=== PATIENT | female | born 1980 | race Caucasian/White ===

== ENCOUNTER → 2019-06-18 14:19 | Outpatient (BNVA) | payer MEDICAID, SELFPAY | PROVIDERS: Family Provider Family Medicine; PCP Family Medicine; Visit Provider Family Medicine | DX: N39.3 Stress incontinence (female) (male) (principal); R39.9 Unspecified symptoms and signs involving the genitourinary system; M54.42 Lumbago with sciatica, left side; J30.9 Allergic rhinitis, unspecified; G89.29 Other chronic pain | CPT/HCPCS: 80053; 81000 ==

== ENCOUNTER 2019-06-28 12:52 | Outpatient (CLI) | payer MEDICAID, SELFPAY ==
--- NOTE | 2019-06-28 13:00 | MR_ITS ---
WS: [id number] MRI LUMBAR SPINE NONCONTRAST HISTORY: low back pain COMPARISON: None available. TECHNIQUE: Sagittal and axial multisequence imaging is submitted. Mild cervical stenosis at C5-6 due to disc and facet disease. Normal lumbar alignment with no compression fractures or marrow edema. Disc spaces and vertebral body heights are well-preserved. Conus terminates normally at L1-2 disc level. L1-L2: Mild bilateral foraminal stenosis with no disc herniation. L2-L3: Mild bilateral foraminal stenosis with no disc herniation. Mild facet arthritis. L3-L4: Mild diffuse annular disc bulging. Moderate bilateral foraminal stenosis. Mild facet joint art hritis. L4-L5: Mild annular disc bulging with facet and ligamentum flavum arthropathy. Moderate bilateral for aminal stenosis. L5-S1: No significant stenosis. Paraspinal soft tissues. MR/MR lumbar spine wo con* [id number] IMPRESSION: 1. Mild to moderate bilateral foraminal narrowing from L1-2 to L4-5. Most sign ificant at L3-4 and L4-5. May be due to congenitally short pedicles. 2. No significant central stenosis at this time. 3. No fractures.
== END 2019-06-28 12:53 | disposition home or self-care (01) ==
LOC: RADSHAW 12:55
PROVIDERS: Family Provider Family Medicine; PCP Family Medicine; Visit Provider Family Medicine
DX: M54.42 Lumbago with sciatica, left side (principal); G89.29 Other chronic pain
CPT/HCPCS: 72148

== ENCOUNTER → 2019-07-03 12:57 | Outpatient (BNVA) | payer MEDICAID, SELFPAY | PROVIDERS: Family Provider Family Medicine; PCP Family Medicine; Referring Provider Family Medicine; Visit Provider Anesthesiology Pain Medicine | DX: G89.29 Other chronic pain (principal); M54.16 Radiculopathy, lumbar region; M47.816 Spondylosis without myelopathy or radiculopathy, lumbar region; M54.42 Lumbago with sciatica, left side; M47.812 Spondylosis without myelopathy or radiculopathy, cervical region; M62.830 Muscle spasm of back; Z79.891 Long term (current) use of opiate analgesic | CPT/HCPCS: 99204 ==

== ENCOUNTER → 2019-08-16 11:02 | Outpatient (BNVA) | payer MEDICAID, SELFPAY | PROVIDERS: Family Provider Family Medicine; PCP Family Medicine; Visit Provider Anesthesiology Pain Medicine | DX: G89.29 Other chronic pain (principal); M54.16 Radiculopathy, lumbar region; M54.42 Lumbago with sciatica, left side; F17.210 Nicotine dependence, cigarettes, uncomplicated | CPT/HCPCS: 64483; 64484; J1040; J2001; J3490 ==

== ENCOUNTER → 2019-08-30 12:38 | Outpatient (BNVA) | payer MEDICAID, SELFPAY | PROVIDERS: Family Provider Family Medicine; PCP Family Medicine; Visit Provider Anesthesiology Pain Medicine | DX: G89.29 Other chronic pain (principal); M54.16 Radiculopathy, lumbar region; M54.42 Lumbago with sciatica, left side; F17.210 Nicotine dependence, cigarettes, uncomplicated | CPT/HCPCS: 64483; 64484; J1040; J2001; J3490 ==

== ENCOUNTER → 2019-09-17 09:01 | Outpatient (BNVA) | payer MEDICAID, SELFPAY | PROVIDERS: Family Provider Family Medicine; PCP Family Medicine; Visit Provider Anesthesiology Pain Medicine | DX: G89.29 Other chronic pain (principal); M54.42 Lumbago with sciatica, left side; M54.16 Radiculopathy, lumbar region; M47.816 Spondylosis without myelopathy or radiculopathy, lumbar region; M47.812 Spondylosis without myelopathy or radiculopathy, cervical region; M25.559 Pain in unspecified hip; G47.00 Insomnia, unspecified; M62.830 Muscle spasm of back; F17.210 Nicotine dependence, cigarettes, uncomplicated | CPT/HCPCS: 99214 ==

== ENCOUNTER → 2019-10-25 10:18 | Outpatient (BNVA) | payer MEDICAID, SELFPAY | PROVIDERS: Family Provider Family Medicine; PCP Family Medicine; Visit Provider Anesthesiology Pain Medicine | DX: M54.42 Lumbago with sciatica, left side (principal); M47.816 Spondylosis without myelopathy or radiculopathy, lumbar region; M54.16 Radiculopathy, lumbar region; M25.559 Pain in unspecified hip; M62.830 Muscle spasm of back; M47.812 Spondylosis without myelopathy or radiculopathy, cervical region; G47.00 Insomnia, unspecified; F17.210 Nicotine dependence, cigarettes, uncomplicated | CPT/HCPCS: 99213; 99214 ==

== ENCOUNTER → 2019-11-01 13:25 | Outpatient (BNVA) | payer MEDICAID, SELFPAY | PROVIDERS: Family Provider Family Medicine; PCP Family Medicine; Visit Provider Nurse Practitioner | DX: M54.9 Dorsalgia, unspecified (principal); N39.0 Urinary tract infection, site not specified; Z68.31 Body mass index [BMI] 31.0-31.9, adult; F17.210 Nicotine dependence, cigarettes, uncomplicated; Z71.89 Other specified counseling | CPT/HCPCS: 81000; 87086 ==

== ENCOUNTER → 2019-11-07 13:26 | Outpatient (BNVA) | payer MEDICAID, SELFPAY | PROVIDERS: Family Provider Family Medicine; PCP Family Medicine; Visit Provider Anesthesiology Pain Medicine | DX: G89.29 Other chronic pain (principal); M47.816 Spondylosis without myelopathy or radiculopathy, lumbar region; M54.42 Lumbago with sciatica, left side; M54.9 Dorsalgia, unspecified | CPT/HCPCS: 64493; 64494; 64495; J3490 ==

== ENCOUNTER → 2020-01-21 09:18 | Outpatient (BNVA) | payer MEDICAID, SELFPAY | PROVIDERS: Family Provider Family Medicine; PCP Family Medicine; Visit Provider Anesthesiology Pain Medicine | DX: G89.29 Other chronic pain (principal); M47.816 Spondylosis without myelopathy or radiculopathy, lumbar region; M54.16 Radiculopathy, lumbar region; M54.42 Lumbago with sciatica, left side; M25.559 Pain in unspecified hip; M62.830 Muscle spasm of back; M47.812 Spondylosis without myelopathy or radiculopathy, cervical region; G47.00 Insomnia, unspecified; F17.210 Nicotine dependence, cigarettes, uncomplicated | CPT/HCPCS: 99213 ==

== ENCOUNTER → 2020-01-28 13:05 | Outpatient (BNVA) | payer MEDICAID, SELFPAY | PROVIDERS: Family Provider Family Medicine; PCP Family Medicine; Visit Provider Anesthesiology Pain Medicine | DX: G89.29 Other chronic pain (principal); M47.816 Spondylosis without myelopathy or radiculopathy, lumbar region; M54.42 Lumbago with sciatica, left side; F17.210 Nicotine dependence, cigarettes, uncomplicated | CPT/HCPCS: 64635; 64636; J1040 ==

== ENCOUNTER → 2020-02-11 13:03 | Outpatient (BNVA) | payer MEDICAID, SELFPAY | PROVIDERS: Family Provider Family Medicine; PCP Family Medicine; Visit Provider Anesthesiology Pain Medicine | DX: G89.29 Other chronic pain (principal); M47.816 Spondylosis without myelopathy or radiculopathy, lumbar region; M54.42 Lumbago with sciatica, left side; F17.210 Nicotine dependence, cigarettes, uncomplicated | CPT/HCPCS: 64635; 64636; J1030 ==

== ENCOUNTER → 2020-02-21 14:10 | Outpatient (BNVA) | payer MEDICAID, SELFPAY | PROVIDERS: Family Provider Family Medicine; PCP Family Medicine; Visit Provider Family Medicine | DX: R63.5 Abnormal weight gain (principal) | CPT/HCPCS: 80053; 84443 ==

== ENCOUNTER → 2020-04-10 09:44 | Outpatient (BNVA) | payer MEDICAID, SELFPAY | PROVIDERS: Family Provider Family Medicine; PCP Family Medicine; Visit Provider Anesthesiology Pain Medicine | DX: G89.29 Other chronic pain (principal); M54.16 Radiculopathy, lumbar region; M47.816 Spondylosis without myelopathy or radiculopathy, lumbar region; M54.42 Lumbago with sciatica, left side; M25.552 Pain in left hip; M47.812 Spondylosis without myelopathy or radiculopathy, cervical region; G47.00 Insomnia, unspecified; M62.830 Muscle spasm of back; F17.210 Nicotine dependence, cigarettes, uncomplicated | CPT/HCPCS: 99213; 99214 ==

== ENCOUNTER → 2020-04-16 13:53 | Outpatient (BNVA) | payer MEDICAID, SELFPAY | PROVIDERS: Family Provider Family Medicine; PCP Family Medicine; Visit Provider Anesthesiology Pain Medicine | DX: G89.29 Other chronic pain (principal); M54.16 Radiculopathy, lumbar region; M54.42 Lumbago with sciatica, left side; F17.210 Nicotine dependence, cigarettes, uncomplicated | CPT/HCPCS: 64483; 64484; J1100; J3490 ==

== ENCOUNTER → 2020-04-17 13:00 | Outpatient (BNVA) | payer MEDICAID, SELFPAY | PROVIDERS: Family Provider Family Medicine; PCP Family Medicine; Visit Provider Family Medicine | DX: J02.9 Acute pharyngitis, unspecified (principal); H92.03 Otalgia, bilateral; G89.29 Other chronic pain | CPT/HCPCS: 87880 ==

== ENCOUNTER → 2020-05-07 10:48 | Outpatient (BNVA) | payer MEDICAID, SELFPAY | PROVIDERS: Family Provider Family Medicine; PCP Family Medicine; Visit Provider Anesthesiology Pain Medicine | DX: G89.29 Other chronic pain (principal); M54.42 Lumbago with sciatica, left side; M54.16 Radiculopathy, lumbar region; M47.816 Spondylosis without myelopathy or radiculopathy, lumbar region; M25.559 Pain in unspecified hip; M47.812 Spondylosis without myelopathy or radiculopathy, cervical region; G47.00 Insomnia, unspecified; M25.50 Pain in unspecified joint; M62.830 Muscle spasm of back; F17.210 Nicotine dependence, cigarettes, uncomplicated | CPT/HCPCS: 99214 ==

== ENCOUNTER 2020-06-13 12:46 | Emergency (ER) | payer MEDICAID, SELFPAY ==
[2020-06-13 13:01] VITALS: BP 124/74; PULSE 82; RESP 18; TEMP 36.6; O2SAT 97; BMI 33.1
--- NOTE | 2020-06-13 13:07 | XR_ITS ---
WS: [id number] Left forearm, AP and lateral views, 06/13/2020 Clinical Data: fall. swelling Comparison: None. Findings: No fracture or dislocations are seen. The soft tissues are normal. The visualized left wrist and elbo w show no obvious abnormalities. XR/XR forearm LT 2V [id number] Impression: Negative for fracture of the left forearm.
--- NOTE | 2020-06-13 13:08 | W.ED.EXTPRO ---
HPI - Extremity Problem General: Chief complaint: Extremity Injury, Upper Stated complaint: FELL - L ARM SWELLING/PAIN Time Seen by Provider: 06/13/20 13:02 History of Present Illness: HPI Narrative: Patient states she fell approximately 45 minutes ago injuring left forearm now she has swelling and pain. Complaint: extremity pain and extremity swelling Onset (ago): minute(s) Pain Consistency: constant Location: left and upper extremity Severity scale (1-10): 3 Quality: aching Radiation: none Relieving factors: immobilization Exacerbating factors: range of motion Associated symptoms: Reports no associated symptoms; Deny fever(s) Review of Systems Const: Denies: fever(s) or chills Musc: Reports: extremity pain (Left forearm) Psych: Denies: anxiety or depression PFSH ED PFSH: Medical History Chronic low back pain with left-sided sciatica Depression MIREILLE (generalized anxiety disorder) Long-term use of high-risk medication Opioid contract exists Surgical History H/O carpal tunnel repair H/O: hysterectomy Family History Other CAD (coronary artery disease) Cancer Diabetes Hypertension Social History Smoking and tobacco status: current every day smoker cigarettes Packs smoked per day: 0.5 Years cigarettes smoked: 15 Second hand smoke exposure: Yes Alcohol intake: never Lives independently: Yes Household members: spouse Marital status: History of recent travel: No Current gender identity: Female Special juan needs: No Physical Exam Const: COMMON NORMALS: no acute distress Extremity: LEFT UPPER EXTREMITY: Yes lower arm (Swelling about 3 inches proximal to the wrist warm does have good range of ) Psych: COMMON NORMALS: mental status grossly normal Course Vital Signs: Vital signs: Vital Signs Temperature 97.9 F 06/13/20 13:01 Pulse Rate 82 06/13/20 13:01 Respiratory Rate 18 06/13/20 13:01 Blood Pressure 124/74 06/13/20 13:01 Pulse Oximetry 97 06/13/20 13:01 Discharge Plan Discharge Prescriptions: No Action montelukast [Singulair] 10 mg tablet 10 mg PO DAILY Qty: 90 RF: 1 fluticasone propionate [Flonase Allergy Relief] 50 mcg/actuation spray,suspension 2 spray INTRANASAL ONCE Qty: 15.8 RF: 5 venlafaxine 150 mg capsule,extended release 24hr 150 mg PO DAILY Qty: 90 RF: 0 sodium chloride 0.9 % Solution 0.9 % epidural ONCE Qty: 1 RF: 0 methylprednisolone acetate [Depo-Medrol] 40 mg/mL suspension 40 mg Infiltration ONCE Qty: 1 RF: 0 lidocaine (PF) 10 mg/mL (1 %) solution 10 mg SUBCUT ONCE Qty: 1 RF: 0 gabapentin 600 mg tablet 600 mg PO QID Qty: 120 RF: 2 naproxen sodium 500 mg tablet, ER multiphase 24 hr 500 mg PO DAILY Qty: 30 RF: 5 Mucinex 1,200 mg tablet extended release 12hr 1,200 mg PO BID Qty: 20 RF: 0 venlafaxine [Effexor XR] 75 mg capsule,extended release 24hr 75 mg PO QAM Qty: 90 RF: 0 naproxen 250 mg tablet 500 mg PO BID PRN (Reason: pain) Qty: 60 RF: 2 Coding Level of Care Code ED Advertising Strategist for Jayla Zheng
[2020-06-13 13:40] VITALS: BP 125/100; PULSE 87; RESP 16; O2SAT 98
== END 2020-06-13 13:43 | disposition home or self-care (01) ==
LOC: ER 13:47
PROVIDERS: Emergency Provider Nurse Practitioner Family; PCP Family Medicine
DX: M79.89 Other specified soft tissue disorders (principal); F17.210 Nicotine dependence, cigarettes, uncomplicated
CPT/HCPCS: 73090; 99282

== ENCOUNTER → 2020-06-16 10:55 | Outpatient (BNVA) | payer MEDICAID, SELFPAY | PROVIDERS: PCP Family Medicine; Visit Provider Internal Medicine Rheumatology | DX: M19.90 Unspecified osteoarthritis, unspecified site (principal); Z79.899 Other long term (current) drug therapy; M54.16 Radiculopathy, lumbar region; Z11.59 Encounter for screening for other viral diseases; Z11.1 Encounter for screening for respiratory tuberculosis; F17.210 Nicotine dependence, cigarettes, uncomplicated | CPT/HCPCS: 99204 ==

== ENCOUNTER 2020-06-16 12:50 | Outpatient (CLI) | payer MEDICAID, SELFPAY ==
--- NOTE | 2020-06-16 12:59 | XR_ITS ---
WS: [id number] XR hand RT min 3V* [id number] REASON FOR EXAM: M19.90 - Unspecified osteoarthritis, unspecified site FINDINGS: The joint spaces of the right hand are relatively well preserved. No fracture or other focal bone lesion is identified. No erosions are seen. No calcifications were other significant soft tissue abnormality noted. XR/XR hand RT min 3V* [id number] IMPRESSION: No significant abnormality.
--- NOTE | 2020-06-16 12:59 | XR_ITS ---
WS: [id number] Right foot, 3 views, 06/16/2020 Clinical Data: M19.90 - Unspecified osteoarthritis, unspecified site Comparison: None. Findings: No fractures or dislocations are seen. No bone destruction or erosion is noted. The joint spaces and soft tissues are normal. No periarticular demineralization or calcifications are seen. There is a small plantar spur and an Ac hilles spur. XR/XR foot RT min 3V* [id number] Impression: Negative right foot.
--- NOTE | 2020-06-16 12:59 | XR_ITS ---
WS: [id number] Left foot, 3 views, 06/16/2020 Clinical Data: M19.90 - Unspecified osteoarthritis, unspecified site Comparison: None. Findings: No fractures or dislocations are seen. No bone destruction or erosion is noted. The joint spaces and soft tissues are normal. There is no periarticular demineralization or calcifications. XR/XR foot LT min 3V* [id number] Impression: Negative left foot.
--- NOTE | 2020-06-16 12:59 | XR_ITS ---
WS: [id number] Left hand, 3 views, 06/16/2020 Clinical Data: M19.90 - Unspecified osteoarthritis, unspecified site Comparison: None. Findings: No fractures or dislocations are seen. The soft tissues are unremarkable. The joint spaces are normal No periarticular demineralization or calcifications are seen XR/XR hand LT min 3V* [id number] Impression: Negative left hand.
[2020-06-16 13:43] LABS: Basophils # 0.1 10^3/uL (0.0-0.1); Basophils % 0.6 %; Eosinophils # 0.1 10^3/uL (0.0-0.8); Eosinophils % 1.8 %; Hematocrit 46.1 % (37.0-47.0); Hemoglobin 14.8 g/dL (11.5-15.3); Lymphocytes # 2.3 10^3/uL (0.8-4.8); Lymphocytes % 28.4 %; Mean Corpuscular HGB Conc 32.1 g/dL (30.0-36.0); Mean Corpuscular Hemoglobin 29.2 pg (28.0-34.0); Mean Corpuscular Volume 91.1 fL (81-99); Mean Platelet Volume 9.3 fL (7.4-10.4); Monocytes # 0.4 10^3/uL (0.2-0.9); Monocytes % 5.6 %; Neutrophils # 5.01 10^3/uL (1.8-7.7); Neutrophils % 63.2 %; Nucleated Red Blood Cells % 0 %; Platelet Count 389 10^3/cmm (130-400); Red Blood Count 5.06 10^6/uL (4.1-5.3); Red Cell Distribution Width 12.3 % (12.1-15.1); White Blood Count 7.9 10^3/uL (4.0-10.0)
[2020-06-16 14:19] LABS: 25 Hydroxy Vitamin D 30 ng/mL (30-100); Alanine Aminotransferase 12 U/L (0-33); Albumin Level 4.1 g/dL (3.5-5.2); Alkaline Phosphatase 66 IU/L (35-105); Aspartate Amino Transferase 19 U/L (0-32); C Reactive Protein 1.9 mg/L (0.0-4.9); Globulin 3.2 g/dL (1.3-4.6); Glomerular Filtration Rate 92.7 mL/min (90-130); Total Bilirubin 0.2 mg/dL (0.15-1.2); Total Protein 7.3 g/dL (6.6-8.7)
[2020-06-16 14:28] LABS: Hepatitis B Core AB, Total Non-Reactive (Nonreactive); Hepatitis B Surface Antigen Non-Reactive (Nonreactive); Hepatitis C Virus Antibody Reactive (Nonreactive)
[2020-06-16 14:34] LABS: Erythrocyte Sedimentation Rate 8 mm/hr (0-15)
[2020-06-17 12:08] LABS: Cyclic Citrullinated Peptide <16 UNITS
[2020-06-18 13:03] LABS: Quantiferon Nil 0.02 IU/mL; Quantiferon TB Gold NEGATIVE (NEGATIVE)
== END 2020-06-16 12:51 | disposition home or self-care (01) ==
LOC: RAD 12:53
PROVIDERS: PCP Family Medicine; Visit Provider Internal Medicine Rheumatology
DX: M19.90 Unspecified osteoarthritis, unspecified site (principal); Z79.899 Other long term (current) drug therapy; Z11.1 Encounter for screening for respiratory tuberculosis; Z11.59 Encounter for screening for other viral diseases
CPT/HCPCS: 36415; 73130; 73630; 80076; 82306; 82565; 85025; 85651; 86140; 86431; 86480; 86704; 86803; 87340

== ENCOUNTER → 2020-07-11 09:19 | Outpatient (BNVA) | payer MEDICAID, SELFPAY | PROVIDERS: PCP Family Medicine; Visit Provider Anesthesiology Pain Medicine | DX: G89.29 Other chronic pain (principal); M54.42 Lumbago with sciatica, left side; M54.16 Radiculopathy, lumbar region; M47.816 Spondylosis without myelopathy or radiculopathy, lumbar region; M47.812 Spondylosis without myelopathy or radiculopathy, cervical region; M25.559 Pain in unspecified hip; M62.830 Muscle spasm of back; M25.50 Pain in unspecified joint; G47.00 Insomnia, unspecified; F17.210 Nicotine dependence, cigarettes, uncomplicated | CPT/HCPCS: 99214 ==

== ENCOUNTER → 2020-07-21 13:46 | Outpatient (BNVA) | payer MEDICAID, SELFPAY | PROVIDERS: PCP Family Medicine; Visit Provider Anesthesiology Pain Medicine | DX: G89.29 Other chronic pain (principal); M54.16 Radiculopathy, lumbar region; M54.42 Lumbago with sciatica, left side; F17.210 Nicotine dependence, cigarettes, uncomplicated | CPT/HCPCS: 64483; 64484; J1100; J3490 ==

== ENCOUNTER → 2020-07-30 10:40 | Outpatient (BNVA) | payer MEDICAID, SELFPAY | PROVIDERS: PCP Family Medicine; Visit Provider Internal Medicine Rheumatology | DX: M19.90 Unspecified osteoarthritis, unspecified site (principal); R76.8 Other specified abnormal immunological findings in serum; Z79.899 Other long term (current) drug therapy; Z79.52 Long term (current) use of systemic steroids; F17.210 Nicotine dependence, cigarettes, uncomplicated | CPT/HCPCS: 99214 ==

== ENCOUNTER 2020-09-03 11:13 | Outpatient (CLI) | payer MEDICAID, SELFPAY | END 2020-09-03 11:14 | disposition home or self-care (01) | PROVIDERS: PCP Family Medicine; Visit Provider Internal Medicine Rheumatology | DX: R76.8 Other specified abnormal immunological findings in serum (principal) | CPT/HCPCS: 87522 ==

== ENCOUNTER → 2020-09-18 09:34 | Outpatient (BNVA) | payer MEDICAID, SELFPAY | PROVIDERS: PCP Family Medicine; Visit Provider Anesthesiology Pain Medicine | DX: G89.29 Other chronic pain (principal); M54.42 Lumbago with sciatica, left side; M54.16 Radiculopathy, lumbar region; M47.816 Spondylosis without myelopathy or radiculopathy, lumbar region; M47.812 Spondylosis without myelopathy or radiculopathy, cervical region; M62.830 Muscle spasm of back; G47.00 Insomnia, unspecified; F17.210 Nicotine dependence, cigarettes, uncomplicated | CPT/HCPCS: 99214 ==

== ENCOUNTER → 2020-11-19 09:23 | Outpatient (BNVA) | payer MEDICAID, SELFPAY | PROVIDERS: PCP Family Medicine; Visit Provider Anesthesiology Pain Medicine | DX: G89.29 Other chronic pain (principal); M54.42 Lumbago with sciatica, left side; M47.816 Spondylosis without myelopathy or radiculopathy, lumbar region; M54.16 Radiculopathy, lumbar region; M79.605 Pain in left leg; M47.812 Spondylosis without myelopathy or radiculopathy, cervical region; M25.559 Pain in unspecified hip; M62.830 Muscle spasm of back; G47.00 Insomnia, unspecified; F17.210 Nicotine dependence, cigarettes, uncomplicated | CPT/HCPCS: 99214 ==

== ENCOUNTER → 2020-11-26 13:02 | Outpatient (BNVA) | payer MEDICAID, SELFPAY | PROVIDERS: PCP Family Medicine; Visit Provider Anesthesiology Pain Medicine | DX: G89.29 Other chronic pain (principal); M54.16 Radiculopathy, lumbar region; M54.42 Lumbago with sciatica, left side; F17.210 Nicotine dependence, cigarettes, uncomplicated | CPT/HCPCS: 64483; 64484; J1100; J3490 ==

== ENCOUNTER → 2020-12-18 10:07 | Outpatient (BNVA) | payer MEDICAID, SELFPAY | PROVIDERS: PCP Family Medicine; Visit Provider Anesthesiology Pain Medicine | DX: G89.29 Other chronic pain (principal); M51.17 Intervertebral disc disorders with radiculopathy, lumbosacral region; M48.062 Spinal stenosis, lumbar region with neurogenic claudication; M47.816 Spondylosis without myelopathy or radiculopathy, lumbar region; M47.812 Spondylosis without myelopathy or radiculopathy, cervical region; M25.559 Pain in unspecified hip; M62.830 Muscle spasm of back | CPT/HCPCS: 99214 ==

== ENCOUNTER → 2021-01-08 15:05 | Outpatient (BNVA) | payer MEDICAID, SELFPAY | PROVIDERS: PCP Family Medicine; Visit Provider Family Medicine | DX: R30.0 Dysuria (principal); R53.83 Other fatigue; Z13.6 Encounter for screening for cardiovascular disorders | CPT/HCPCS: 81000; 87086 ==

== ENCOUNTER → 2021-01-09 13:55 | Outpatient (BNVA) | payer MEDICAID, SELFPAY | PROVIDERS: PCP Family Medicine; Visit Provider Family Medicine | DX: R53.83 Other fatigue (principal); Z13.6 Encounter for screening for cardiovascular disorders | CPT/HCPCS: 80053; 80061; 84443; 85025 ==

== ENCOUNTER → 2021-01-15 09:30 | Outpatient (BNVA) | payer MEDICAID, SELFPAY | PROVIDERS: PCP Family Medicine; Referring Provider Anesthesiology Pain Medicine; Visit Provider Orthopaedic Surgery | DX: G89.29 Other chronic pain (principal); M54.42 Lumbago with sciatica, left side | CPT/HCPCS: 72110 ==

== ENCOUNTER → 2021-02-03 09:30 | Outpatient (BNVA) | payer MEDICAID, SELFPAY | PROVIDERS: PCP Family Medicine; Visit Provider Orthopaedic Surgery | DX: Z20.822 Contact with and (suspected) exposure to COVID-19 (principal); M47.816 Spondylosis without myelopathy or radiculopathy, lumbar region | CPT/HCPCS: 87635 ==

== ENCOUNTER 2021-02-09 11:31 | Day surgery (SDC) | payer MEDICAID, SELFPAY ==
[2021-02-06 10:10] VITALS: BMI 36.3
--- NOTE | 2021-02-06 10:35 | ANES.PREANE2 ---
Pre-Anesthetic Assessment Pre-Anesthetic Assessment: Height/Weight: Height 1.5 m Weight 81.647 kg Preop Diagnosis: back pain Proposed Procedure: Operation Date: 02/09/21 12:00 Proposed Procedures p Lumbar Spine Decompression L3/4 L4/5 21137 70385 M54.42 G89.29(Not Applicable) - Blake Phelan DO Familial anesthetic complications: none Social: Social History: Tobacco and No alcohol Airway: MP: 2 Dentition: False Musc/skel: Comments: inflammatory arthritis Anesthetic Plan: ASA status: 2 Anesthesia: General Risk of > 500 ml blood loss (7ml/kg in children): No PFSH Anesthesia PFSH: Medical History Anxiety Chronic low back pain with left-sided sciatica Chronic steroid use Depression MIREILLE (generalized anxiety disorder) Hepatitis C antibody positive in blood High risk medication use Immunization counseling Inflammatory arthritis Joint pain Long-term use of high-risk medication Opioid contract exists Seasonal allergies Surgical History H/O carpal tunnel repair H/O: hysterectomy History of tonsillectomy and adenoidectomy Family History Other CAD (coronary artery disease) Cancer Diabetes Family history of premature coronary artery disease Hyperlipidemia Hypertension Rheumatoid arthritis Stroke Denies family history of Lupus Chronic kidney disease (CKD) Lung disease Social History Smoking and tobacco status: current every day smoker cigarettes Packs smoked per day: 1.5 Years cigarettes smoked: 15 Second hand smoke exposure: Yes Alcohol intake: never Lives independently: Yes Household members: spouse Marital status: History of recent travel: No Current gender identity: Female Special juan needs: No Data Anesthesia Cardiac Studies: No Data to Display
[2021-02-09] VITALS (7 sets, daily range): BP systolic 103–125; BP diastolic 60–92; PULSE 74–104; RESP 16–21; TEMP 36.5–36.8; O2SAT 93–100
--- NOTE | 2021-02-09 | SCC_ITS ---
Procedure Done: 1. L3/4 laminectomy with partial facetectomy 2. L4/5 laminectomy with partial facetectomy 19.5 seconds of fluoroscopic guidance, for a cumulative dose of 5.99 mGy, was provided to Dr. Phelan by the radiology department. C-arm images of the lumbar spine were saved for the patient's permanent record. [facility]
--- NOTE | 2021-02-09 | XR_ITS ---
WS: [id number] C-ARM RADIOGRAPHS LUMBAR SPINE; 4 IMAGES HISTORY: lumbar spine decompression COMPARISON: None available. Intraoperative imaging during spine decompression. Marker is indicating the L4-5 level. XR/XR lumbar spine 1V [id number] IMPRESSION: Intraoperative decompression at the L4-5 level.
[2021-02-09] MEDS: sodium chloride 0.9% 1,000 ML 30 ML IV (12:00)
--- NOTE | 2021-02-09 12:22 | W.PM.OPSUD ---
Surgery/Procedure H&P Update DATE OF PROCEDURE: February 09, 2021 DATE H&P PERFORMED: 01/15/21 H&P UPDATE INFORMATION: I have reviewed H&P completed within last 30 days, I have examined patient prior to procedure and No changes to prior documentation PREOP DIAGNOSIS: lumbar stenosis with neurogenic claudication PLANNED PROCEDURE: Operation Date: 02/09/21 12:45 Proposed Procedures p Lumbar Spine Decompression L3/4 L4/5 Left 64503 32203 M54.42 G89.29(Not Applicable) - Blake Phelan DO
--- NOTE | 2021-02-09 12:23 | P.ANESUD_ITS ---
Pre-Anesthetic Update Pre-Anesthetic Assessment: Date of Surgery/Procedure: 02/09/21 Preop Alicia gnosis: lumbar stenosis with neurogenic claudication Proposed Procedure: Operation Date: 02/09/21 12:45 Proposed Procedures p Lumbar Spine Decompression L3/4 L4/5 Left 55437 70083 M54.42 G89.29(Not Applicable) - Blake Phelan, DO Any changes to Pre-Anesthetic Assessment?: No Last Intake: Intake Last Liquid Date 02/08/21 Last Liquid Time 22:00 Last Solid Date 02/08/21 Last Solid Time 22:00 Vitals: Temperature 98.1 F 02/09/21 11:46 Temperature Source Temporal Artery S can 02/09/21 11:46 Pulse Rate 93 02/09/21 11:46 Pulse Rhythm 02/09/21 11:46 Pulse Strength 3+ Normal 02/09/21 11:46 Respiratory Rate 18 02/09/21 11:46 Blood Pressure 120/92 02/09/21 11:46 Blood Pressure Noemi n 101 02/09/21 11:46 Pulse Oximetry 96 02/09/21 11:46 Oxygen Delivery Me thod 02/09/21 11:46 Exam: Pre-Anes Outpt Exam: alert, oriented x 3, clear to auscultation bilaterally and regular rate & rhythm Cardiac Studies: No Data to Display
[2021-02-09] MEDS: clindamycin 900 MG/50 ML PREMIX 100 MG IV (12:58)
--- NOTE | 2021-02-09 14:07 | PM.OP ---
Operative Report Date of procedure: February 09, 2021 Pre-op Diagnosis: lumbar stenosis with neurogenic claudication Post-op diagnosis: same Procedure Done: 1. L3/4 laminectomy with partial facetectomy 2. L4/5 laminectomy with partial facetectomy Surgeon: Blake Phelan Fixed Assets Accountant: Alex Arevalo Fixed Assets Accountant: The assistant professor surgical technology, KP Trevino was needed for his expertise under the microscope. He was important and necessary throughout the procedure to complete in a safe and timely manner. He assisted with patient positioning prepping and draping tissue retraction suctioning of the operative field protection of the dural sac and tissue closure Anesthesia: General Estimated blood loss (mL): 5 Condition: stable Disposition: PACU Procedure: 1. L3/4 laminectomy with partial facetectomy 2. L4/5 laminectomy with partial facetectomy Patient is brought to the operative suite. After undergoing anesthesia they are placed in the prone position. All areas of impingement are well padded. Patient is then prepped and draped in the normal sterile fashion. A skin incision is made over the L3/4 level. This is confirmed under c-arm guidance. A series of dilators are passed and the tubular retractor is docked on the L3 lamina. A bovie is used to clear the soft tissue off the lamina and the L 3/4 facet joint. A high speed tim is then used to perform the laminectomy and take down the medial aspect of the L 3/4 facet joint. A kerrison rongeure was then used to take down the remaining lamina and smooth the edge of the laminectomy up to the point where the ligamentum flavum attaches. Attention was then brought to the medial aspect of the facet joint. The remaining medial aspect of the superior and inferior aspect of the facet joint were taken down with the kerrison from the pedicle of L3 to L 4. The facet joint had significant hypertrophy. Attention was then brought to the Ligamentum Flavum. The ligament was taken down from the lamina of L3 to L4 and out medially to the remaining facet joint. The ligament was thick. The dura was then exposed. The dura was in good repair. The L3 nerve was then traced with a curette out the L3/4 foramen and found to be adequately decompressed. The L4 nerve was traced with a curette around the L4 pedicle. The lateral recess was opened with a kerrison helping to further decompress the L4 nerve. Wound is then irrigated copiously with saline and surgiflo is used to stop any bleeding. The tubular retractor is removed A skin incision is made over the L4/5 level. This is confirmed under c-arm guidance. A series of dilators are passed and the tubular retractor is docked on the L4 lamina. A bovie is used to clear the soft tissue off the lamina and the L 4/5 facet joint. A high speed tim is then used to perform the laminectomy and take down the medial aspect of the L 4/5 facet joint. A kerrison rongeure was then used to take down the remaining lamina and smooth the edge of the laminectomy up to the point where the ligamentum flavum attaches. Attention was then brought to the medial aspect of the facet joint. The remaining medial aspect of the superior and inferior aspect of the facet joint were taken down with the kerrison from the pedicle of L4 to L 5. The facet joint had significant hypertrophy. Attention was then brought to the Ligamentum Flavum. The ligament was taken down from the lamina of L4 to L5 and out medially to the remaining facet joint. The ligament was thick. The dura was then exposed. The dura was in good repair. The L4 nerve was then traced with a curette out the L4/5 foramen and found to be adequately decompressed. The L5 nerve was traced with a curette around the L5 pedicle. The lateral recess was opened with a kerrison helping to further decompress the L5 nerve. Wound is then irrigated copiously with saline and surgiflo is used to stop any bleeding. The tubular retractor is removed and the wound is closed with vicryl and monocryl suture. Glue is then used to protect the wound. A sterile dressing is then placed. Patient was then placed in the supine position and transferred to the PACU in stable condition. Associated Problem List Diagnoses (1) Lumbar stenosis with neurogenic claudication:
--- NOTE | 2021-02-09 14:37 | SUR.PHASEI ---
PT AWAKE ALERT TALKATIVE, SITTING WITH HOB AT 45 DEGREES PT MOVES BILAT FEET TO COMMAND, VSS PT DENIES PAIN AND NAUSEA, MONITOR SR, NO ECTOPY, PT TAKING OCC ICE CHIPS PT ON RA TRIAL.
--- NOTE | 2021-02-09 14:47 | ANE.PACU2 ---
Inpatient post-anesthesia follow up: Airway intact: Yes Vital signs: Temperature 97.7 F Pulse Rate 86 Respiratory Rate 21 Blood Pressure 117/79 Pulse Oximetry 93 Oxygen Delivery Me thod Room Air Oxygen Flow Rate 8 Fraction of Inspir ed Oxygen Hydration adequate: Yes Nausea and vomiting: No Pain level: 2 Mental status: Baseline
[2021-02-09] MEDS: HYDROcodone-acetaminophen 5-325 mg Tablet 1 TAB PO (15:01)
== END 2021-02-09 15:35 | disposition home or self-care (01) ==
PROVIDERS: PCP Family Medicine; Visit Provider Orthopaedic Surgery
PROC: (CPT 63005; principal; 2021-02-09 12:40)
DX: M54.42 Lumbago with sciatica, left side (principal); M48.062 Spinal stenosis, lumbar region with neurogenic claudication; G89.29 Other chronic pain; F17.210 Nicotine dependence, cigarettes, uncomplicated; Z79.899 Other long term (current) drug therapy; Z88.0 Allergy status to penicillin
CPT/HCPCS: 63047; 63048; 72020; 76000; J2704; J3490; J7030

== ENCOUNTER → 2021-03-05 10:56 | Outpatient (BNVA) | payer MEDICAID, SELFPAY | PROVIDERS: PCP Family Medicine; Visit Provider Anesthesiology Pain Medicine | DX: G89.29 Other chronic pain (principal); M51.17 Intervertebral disc disorders with radiculopathy, lumbosacral region; M47.816 Spondylosis without myelopathy or radiculopathy, lumbar region; M48.062 Spinal stenosis, lumbar region with neurogenic claudication; M47.812 Spondylosis without myelopathy or radiculopathy, cervical region; M62.830 Muscle spasm of back; G47.00 Insomnia, unspecified; M25.50 Pain in unspecified joint; Z98.890 Other specified postprocedural states; Z79.891 Long term (current) use of opiate analgesic | CPT/HCPCS: 99214 ==

== ENCOUNTER → 2021-04-13 08:46 | Outpatient (BNVA) | payer MEDICAID, SELFPAY | PROVIDERS: PCP Family Medicine; Visit Provider Family Medicine | DX: R05.9 Cough, unspecified (principal); R50.9 Fever, unspecified; R68.89 Other general symptoms and signs; F41.1 Generalized anxiety disorder; R49.0 Dysphonia; J10.1 Influenza due to other identified influenza virus with other respiratory manifestations; F17.219 Nicotine dependence, cigarettes, with unspecified nicotine-induced disorders | CPT/HCPCS: 87400; 87635; 87880 ==

== ENCOUNTER → 2021-06-04 10:52 | Outpatient (BNVA) | payer MEDICAID, SELFPAY | PROVIDERS: PCP Family Medicine; Visit Provider Anesthesiology Pain Medicine | DX: G89.29 Other chronic pain (principal); M51.17 Intervertebral disc disorders with radiculopathy, lumbosacral region; M48.062 Spinal stenosis, lumbar region with neurogenic claudication; M47.816 Spondylosis without myelopathy or radiculopathy, lumbar region; M47.812 Spondylosis without myelopathy or radiculopathy, cervical region; M25.559 Pain in unspecified hip; G47.00 Insomnia, unspecified; M25.50 Pain in unspecified joint; M62.830 Muscle spasm of back; F17.210 Nicotine dependence, cigarettes, uncomplicated; Z79.891 Long term (current) use of opiate analgesic | CPT/HCPCS: 99213 ==

== ENCOUNTER → 2021-06-22 12:47 | Outpatient (BNVA) | payer MEDICAID, SELFPAY | PROVIDERS: PCP Family Medicine; Referring Provider Family Medicine; Visit Provider Specialist | DX: M77.11 Lateral epicondylitis, right elbow (principal) | CPT/HCPCS: 73080 ==

== ENCOUNTER → 2021-08-02 14:36 | Outpatient (BNVA) | payer MEDICAID, SELFPAY | PROVIDERS: PCP Family Medicine; Visit Provider Registered Nurse Neonatal Intensive Care | DX: R11.10 Vomiting, unspecified (principal); R11.2 Nausea with vomiting, unspecified | CPT/HCPCS: 87400 ==

== ENCOUNTER → 2021-08-27 09:35 | Outpatient (BNVA) | payer MEDICAID, SELFPAY | PROVIDERS: PCP Family Medicine; Visit Provider Anesthesiology Pain Medicine | DX: G89.29 Other chronic pain (principal); M51.17 Intervertebral disc disorders with radiculopathy, lumbosacral region; M48.062 Spinal stenosis, lumbar region with neurogenic claudication; M47.816 Spondylosis without myelopathy or radiculopathy, lumbar region; M47.812 Spondylosis without myelopathy or radiculopathy, cervical region; M25.559 Pain in unspecified hip; G47.00 Insomnia, unspecified; M62.830 Muscle spasm of back; F17.210 Nicotine dependence, cigarettes, uncomplicated | CPT/HCPCS: 99214 ==

== ENCOUNTER → 2021-10-05 16:47 | Outpatient (BNVA) | payer MEDICAID, SELFPAY | PROVIDERS: PCP Family Medicine; Visit Provider Family Medicine Adult Medicine | DX: Z20.822 Contact with and (suspected) exposure to COVID-19 (principal); B34.9 Viral infection, unspecified | CPT/HCPCS: 87635 ==

== ENCOUNTER → 2021-12-10 14:31 | Outpatient (BNVA) | payer MEDICAID, SELFPAY | PROVIDERS: PCP Family Medicine; Visit Provider Family Medicine | DX: R30.0 Dysuria (principal); Z13.6 Encounter for screening for cardiovascular disorders; R53.83 Other fatigue | CPT/HCPCS: 80053; 80061; 81000; 84443; 85025; 87086 ==

== ENCOUNTER 2022-02-21 17:09 | Emergency (ER) | payer MEDICAID, SELFPAY ==
[2022-02-21 17:42] VITALS: PULSE 85; RESP 16; TEMP 36.4; O2SAT 98
--- NOTE | 2022-02-21 19:19 | XRR_ITS ---
PROCEDURE INFORMATION: Exam: XR Left Foot Exam date and time: 02/21/2022 8:34 PM Age: 41 years old Clinical indication: Pain; Foot; Left; Additional info: Horse stepped on left foot-pain and swelling TECHNIQUE: Imaging protocol: Radiologic exam of the Left foot. Views: 3 or more views. COMPARISON: No relevant prior studies available. FINDINGS: Bones/joints: Lucency in the tuft of the great toe distal phalanx is suspicious for a minimally displaced fracture. The other bones appear intact and in normal alignment. Soft tissues: Normal. XR/XR foot LT min 3V* [id number] IMPRESSION: Possible minimally displaced fracture in the tuft of the great toe distal phalanx. Correlation with patient's symptoms recommended.
--- NOTE | 2022-02-21 19:20 | ED_ITS ---
HPI - Extremity Problem General: Chief complaint: Extremity Injury, Lower Stated complaint: Horse stump on foot, foot is swollen Time Seen by Provider: 02/21/22 19:19 History of Present Illness: Patient is a 41-year-old female comes to the ED with left foot injury. Patient states that this afternoon one of her horses stepped on her left foot. Horse stepped mostly on big toe. She now has pain and swelling in left foot. Pain with she rates her pain a 10 out of 10. Any weightbearing worsens pain. Denies any loss of sensation to left foot. Associated symptoms: Deny chest pain, fever(s) or rash Review of Systems Const: Denies: fever(s), chills or fatigue Eyes: Denies: change in vision or eye discomfort ENMT: Denies: throat pain, odynophagia, nasal discharge or nasal congestion Card: Denies: chest pain, palpitations, edema, swelling of feet/ankles, dyspnea on exertion or orthopnea Resp: Denies: dyspnea, productive cough or non-productive cough GI: Denies: abdominal pain, nausea, vomiting, diarrhea, constipation or hematochezia : Denies: flank pain, dysuria or hematuria Musc: Reports: extremity pain (Left foot pain); Denies: neck pain, back pain or extremity swelling Skin/Breast: Denies: rash or new lesions Neuro: Denies: headache(s), numbness in extremities or weakness in extremities PFSH ED PFSH: Medical History Anxiety Chronic low back pain with left-sided sciatica Chronic steroid use Depression MIREILLE (generalized anxiety disorder) Hepatitis C antibody positive in blood High risk medication use Immunization counseling Inflammatory arthritis Joint pain Long-term use of high-risk medication Opioid contract exists Seasonal allergies Viral syndrome Surgical History H/O carpal tunnel repair H/O laminectomy H/O: hysterectomy History of tonsillectomy and adenoidectomy Family History Other CAD (coronary artery disease) Cancer Diabetes Family history of premature coronary artery disease Hyperlipidemia Hypertension Rheumatoid arthritis Stroke Denies family history of Lupus Chronic kidney disease (CKD) Lung disease Social History Smoking and tobacco status: current every day smoker cigarettes Packs smoked per day: 1.5 Years cigarettes smoked: 15 Second hand smoke exposure: Yes Alcohol intake: never Lives independently: Yes Household members: spouse Marital status: History of recent travel: No Current gender identity: Female Special juan needs: No Physical Exam Const: COMMON NORMALS: patient oriented x3 and alert GENERAL APPEARANCE: cooperative HENMT: COMMON NORMALS: normocephalic HEAD & SCALP: normocephalic MOUTH: Normal oral and palatal mucosa present THROAT: posterior oropharynx normal and uvula midline Neck/C-Spine: COMMON NORMALS: supple GENERAL: Yes normal visual inspection Resp: COMMON NORMALS: normal respiratory effort, No retractions, No use of accessory muscles and clear to auscultation bilaterally AUSCULTATION: clear to auscultation bilaterally Cardio: COMMON NORMALS: regular rate, regular rhythm, S1 normal heart sound present, S2 normal heart sound present, No gallops present (Cardio), No clicks present (Cardio), No murmurs present (Cardio) and Peripheral pulses 2+ throughout RATE: regular rate RHYTHM: regular rhythm HEART SOUNDS: S1 normal heart sound present and S2 normal heart sound present PERIPHERAL PULSES: Peripheral pulses 2+ throughout GI: COMMON NORMALS: Normal to inspection, nondistended, normoactive bowel sounds present, Soft to palpation, non-tender and no masses PALPATION: Yes Soft to palpation : COMMON NORMALS: Yes no CVA tenderness BLADDER/KIDNEY EXAM: Yes no CVA tenderness Back/Pelvis: COMMON NORMALS: no CVA tenderness Extremity: COMMON NORMALS: capillary refill normal NARRATIVE EXTREMITY EXAM: Left foot?some erythema and swelling of the great toe especially near distal end. No nailbed or nail damage noted. Some mild swelling at the base of great toe. Tenderness to the great toe. Neuro: COMMON NORMALS: patient oriented x3 SENSORIUM/ORIENTATION: Yes alert GAIT: Yes Normal gait present Skin: GENERAL SKIN EXAM: dry skin Course Vital Signs: Vital signs: Vital Signs Temperature 97.6 F 02/21/22 17:42 Pulse Rate 82 02/21/22 20:46 Respiratory Rate 16 02/21/22 20:46 Pulse Oximetry 99 02/21/22 20:46 MDM - Extremity (Nontraumatic) Medical Decision Making Patient is a 41-year-old female comes to the ED with left foot injury. Patient states that this afternoon one of her horses stepped on her left foot. Horse stepped mostly on big toe. Vitals are stable. Left foot?some erythema and swelling of the great toe especially near distal end. No nailbed or nail damage noted. Some mild swelling at the base of great toe. Tenderness to the great t oe. Left foot x-ray showed minimally displaced fracture of the tuft of the great toe distal phalanx. Patient was put in a stiff soled shoe and told to use her at home crutches to help with ambulation. She was sent home with a prescription for ibuprofen 800 mg and hydrocodone for acute pain. Follow-up with PCP within the next week to 10 days for reevaluation. Patient understood and agreed with plan. Lab Data Radiology Impressions Foot X-Ray 02/21/22 19:19 IMPRESSION: Possible minimally displaced fracture in the tuft of the great toe distal phalanx. Correlation with patient's symptoms recommended. Discharge Plan Discharge Patient Disposition: Home Clinical Impression: Fracture of distal phalanx of great toe Qualifiers: Encounter type: initial encounter Fracture type: closed Fracture alignment: nondisplaced Laterality: left Qualified Code(s): S92.425A - Nondisplaced fracture of distal phalanx of left great toe, initial encounter for closed fracture Condition: Stable Prescriptions: New ibuprofen 800 mg tablet 800 mg PO Q8H PRN (Reason: pain) Qty: 30 0RF No Action bupropion HCl 300 mg tablet extended release 24 hr 300 mg PO QAM Qty: 90 1RF oxybutynin chloride 5 mg tablet extended release 24 hr 5 mg PO DAILY Qty: 90 1RF Rx Instructions: Take with 10 mg dose pregabalin 200 mg capsule 200 mg PO TID Qty: 90 3RF oxybutynin chloride 10 mg tablet extended release 24 hr 10 mg PO DAILY Qty: 90 1RF Discharge Orders: Discharge ED (Routine); Ordered 02/21/22 Ordered By: Mike Nguyen Referrals: Lisa Palomino DO [Primary Care Provider] - Discharge Diet: Regular Discharge Activity: Increase activity as tolerated Patient Instructions: Fractures - Phalanx (Toe), Opioid Safety Activity Restrictions/Additional Instructions: Follow-up with medical provider as directed in the next 7 to 10 days for reevaluation. Wear stiff soled shoe when ambulating. Use crutches and limit weightbearing for the first couple days to allow for healing. Take medications as prescribed. Return to the ER or your medical provider if condition worsens. Please read and understand discharge instructions. Thank you for choosing [facility] for your healthcare needs today. Please realize this is an emergency room and that we are providing you with a medical screening exam and this may not be complete and all inclusive of all the testing and or work up that you may need to determine your ailment or severity of your illness. It is very important that you follow up as instructed or that you return to the Emergency Department should you have concerns or if your condition changes or worsens in any way. Coding Level of Care Code ED Associate Professor Of Library Media for Jayla Zheng Exam Comprehensive
[2022-02-21] MEDS: HYDROcodone-acetaminophen 7.5-325 mg Tablet 1 TAB PO (20:10)
[2022-02-21] MEDS: HYDROcodone-acetaminophen 7.5-325 mg Tablet 2 TAB PO (20:45)
[2022-02-21 20:46] VITALS: PULSE 82; RESP 16; O2SAT 99
== END 2022-02-21 20:48 | disposition home or self-care (01) ==
PROVIDERS: Emergency Provider Physician Assistant; PCP Family Medicine
DX: S92.425A Nondisplaced fracture of distal phalanx of left great toe, initial encounter for closed fracture (principal); F17.210 Nicotine dependence, cigarettes, uncomplicated; Z86.19 Personal history of other infectious and parasitic diseases; W55.19XA Other contact with horse, initial encounter
CPT/HCPCS: 73630; 99283

== ENCOUNTER → 2022-03-11 14:56 | Outpatient (BNVA) | payer MEDICAID, SELFPAY | PROVIDERS: PCP Family Medicine; Visit Provider Registered Nurse Neonatal Intensive Care | DX: N39.0 Urinary tract infection, site not specified (principal); R39.9 Unspecified symptoms and signs involving the genitourinary system; S29.012A Strain of muscle and tendon of back wall of thorax, initial encounter | CPT/HCPCS: 81000; 87086 ==

== ENCOUNTER 2022-06-17 23:47 | Emergency (ER) | payer MEDICAID, SELFPAY ==
--- NOTE | 2022-06-17 23:50 | XRR_ITS ---
PROCEDURE INFORMATION: Exam: XR Chest Exam date and time: 06/17/2022 11:54 PM Age: 41 years old Clinical indication: Cough TECHNIQUE: Imaging protocol: Radiologic exam of the chest. Views: 1 view. COMPARISON: CR XR shoulder LT min 2V* [id number] 12/21/2021 11:10 AM FINDINGS: Lungs: Unremarkable. No consolidation. Pleural spaces: Unremarkable. No pleural effusion. No pneumothorax. Heart/Mediastinum: Unremarkable. No cardiomegaly. Bones/joints: Unremarkable. XR/XR chest 1V portable [id number] IMPRESSION: No acute findings.
[2022-06-18] VITALS: BP 165/90; PULSE 85; RESP 18; TEMP 36.6; O2SAT 94; BMI 32.5
[2022-06-18 01:24] LABS: Rapid Strep A Test Negative (Negative)
[2022-06-18 01:28] LABS: Influenza A by IFA negative (Negative); Influenza B by IFA negative (Negative); SARS Covid-2 Antigen negative (Negative)
--- NOTE | 2022-06-18 01:58 | W.ED.FEVER ---
HPI - Fever General: Chief Complaint: Fever Stated Complaint: cough; fever; throat tightness Time Seen by Provider: 06/18/22 00:57 Source: patient Mode of arrival: ambulatory Limitations: no limitations History of Present Illness: 41-year-old female states over the last 5 days she has had cough congestion along with low-grade fevers states she also had body aches along with sore throat she was seen in urgent care earlier this week placed on a Z-Ascencion states she had no improvement she denies any vomiting denies any diarrhea she is in no distress here. Associated symptoms: Reports chills; Deny abdominal pain, chest pain, diarrhea, dysuria, headache(s), nausea or vomiting Review of Systems Const: Reports: fever(s), chills and body aches Eyes: Denies: blurry vision or eye discomfort ENMT: Denies: throat pain or dental pain Card: Denies: chest pain Resp: Reports: non-productive cough GI: Denies: abdominal pain, nausea, vomiting or diarrhea : Denies: dysuria Musc: Denies: neck pain or back pain Skin/Breast: Denies: rash Neuro: Denies: headache(s) Psych: Denies: depression Seth/Lymph: Denies: easy bruising All/Imm: Denies: urticaria PFSH ED PFSH: Medical History Anxiety Chronic low back pain with left-sided sciatica Chronic steroid use Depression MIREILLE (generalized anxiety disorder) Hepatitis C antibody positive in blood High risk medication use Immunization counseling Inflammatory arthritis Joint pain Long-term use of high-risk medication Opioid contract exists Seasonal allergies Viral syndrome Surgical History H/O carpal tunnel repair H/O laminectomy H/O: hysterectomy History of tonsillectomy and adenoidectomy Family History Other CAD (coronary artery disease) Cancer Diabetes Family history of premature coronary artery disease Hyperlipidemia Hypertension Rheumatoid arthritis Stroke Denies family history of Lupus Chronic kidney disease (CKD) Lung disease Social History Smoking and tobacco status: current every day smoker cigarettes Packs smoked per day: 1.5 Years cigarettes smoked: 15 Second hand smoke exposure: Yes Alcohol intake: never Lives independently: Yes Household members: spouse Marital status: Current gender identity: Female Special juan needs: No Physical Exam Const: COMMON NORMALS: no acute distress, patient oriented x3 and healthy appearing HENMT: COMMON NORMALS: normocephalic and atraumatic HEAD & SCALP: normocephalic and atraumatic Eye: COMMON NORMALS: Equal, round and reactive pupils present and EOMs intact bilaterally PUPIL: Yes Equal, round and reactive pupils present Neck/C-Spine: COMMON NORMALS: full ROM and supple Chest: COMMONS NORMALS: normal inspection of the chest and normal palpation of entire chest wall Resp: COMMON NORMALS: normal respiratory effort, No retractions, No use of accessory muscles and clear to auscultation bilaterally AUSCULTATION: clear to auscultation bilaterally Cardio: COMMON NORMALS: regular rate, regular rhythm and No murmurs present (Cardio) RATE: regular rate RHYTHM: regular rhythm GI: COMMON NORMALS: Normal to inspection, nondistended, normoactive bowel sounds present, Soft to palpation, non-tender and no masses PALPATION: Yes Soft to palpation Extremity: COMMON NORMALS: normal to inspection and full ROM Neuro: COMMON NORMALS: patient oriented x3, moves all extremities and no focal motor deficits Psych: COMMON NORMALS: mental status grossly normal, Normal thought process present and cooperative THOUGHT PROCESS: Normal thought process present Skin: COMMON NORMALS: no rashes or lesions noted and no wounds GENERAL SKIN EXAM: no rashes or lesions noted Course Vital Signs: Vital signs: Vital Signs Temperature 97.9 F 06/18/22 00:00 Pulse Rate 85 06/18/22 00:00 Respiratory Rate 18 06/18/22 00:00 Blood Pressure 165/90 06/18/22 00:00 Pulse Oximetry 94 06/18/22 00:00 MDM - Fever Medical Decision Making Patient presents with cough congestion likely a viral upper respiratory infection she is to finish out the Z-Ascencion she was prescribed although this is likely viral x-ray here is normal we will give her Decadron she is to use an inhaler at home as well. Lab Data Radiology Impressions Chest X-Ray 06/17/22 23:50 IMPRESSION: No acute findings. Laboratory Results Influenza Type A Ag negative (Negative) 06/18/22 01:04 Influenza Type B Ag negative (Negative) 06/18/22 01:04 SARS-CoV-2 Ag (Rapid) negative (Negative) 06/18/22 01:04 Group A Strep Rapid Negative (Negative) 06/18/22 01:04 Discharge Plan Discharge Patient Disposition: Home Clinical Impression: Upper respiratory infection Condition: Stable Prescriptions: No Action bupropion HCl 300 mg tablet extended release 24 hr 300 mg PO QAM Qty: 30 0RF oxybutynin chloride 5 mg tablet extended release 24hr 5 mg PO DAILY Qty: 90 1RF Rx Instructions: Take with 10 mg dose azithromycin 250 mg tablet See Rx Instructions PO .COMPLEX Qty: 6 0RF Rx Instructions: For 250 mg dose pack: take 500 mg today (day 1), then 250 mg for 4 days (days 2-5) PO prednisone 20 mg tablet 40 mg PO DAILY 5 Days Qty: 10 0RF albuterol sulfate [Ventolin HFA] 90 mcg/actuation HFA aerosol inhaler 2 puff inhalation QID Qty: 6.7 0RF oxybutynin chloride 10 mg tablet extended release 24hr 10 mg PO DAILY Qty: 90 1RF pregabalin 200 mg capsule 200 mg PO TID Qty: 90 3RF Discharge Orders: Discharge ED (Routine); Ordered 06/18/22 Ordered By: Seema Moran Referrals: Lisa Palomino DO [Primary Care Provider] - Discharge Diet: Advance as tolerated Discharge Activity: Resume usual activity Patient Instructions: Upper Respiratory Infection (ED) Coding Level of Care Code ED Manager Assisted Living for Jayla Zheng
[2022-06-18 02:00] VITALS: BP 138/91; RESP 16; O2SAT 93
[2022-06-18] MEDS: albuterol 8 gm MDI 2 PUFF INHALATION (02:14)
[2022-06-18 02:16] VITALS: PULSE 80; RESP 16; O2SAT 93
[2022-06-18] MEDS: dexamethasone 10 mg/mL INJ IM (02:24)
== END 2022-06-18 02:26 | disposition home or self-care (01) ==
PROVIDERS: Emergency Provider Emergency Medicine; PCP Family Medicine
DX: J06.9 Acute upper respiratory infection, unspecified (principal); Z20.822 Contact with and (suspected) exposure to COVID-19; F17.210 Nicotine dependence, cigarettes, uncomplicated; Z86.19 Personal history of other infectious and parasitic diseases
CPT/HCPCS: 71045; 87081; 87426; 87804; 87880; 94640; 96372; 99284; J1100; J3535

== ENCOUNTER → 2022-08-05 15:41 | Outpatient (BNVA) | payer MEDICAID, SELFPAY | PROVIDERS: PCP Family Medicine; Visit Provider Family Medicine | DX: R10.2 Pelvic and perineal pain (principal) | CPT/HCPCS: 87491; 87591; 87661 ==

== ENCOUNTER 2022-08-09 08:50 | Outpatient (CLI) | payer MEDICAID, SELFPAY ==
--- NOTE | 2022-08-09 08:59 | MM_ITS ---
WS: [id number] SCREENING DIGITAL TOMOSYNTHESIS MAMMOGRAM WITH CAD HISTORY: screening mammogram COMPARISON: None available. Bilateral CC and MLO with tomosynthesis views submitted. Synthetic mammography reviewed. Computer aid ed detection analyzed. Breast composition: The breasts are heterogeneously dense, which may obscure small masses. No suspici ous masses, microcalcifications or architectural distortion. MM/[place] [id number] IMPRESSION: BI-RADS: 1-Negative FOLLOW UP: 1 Year Follow-up
== END 2022-08-09 08:51 | disposition home or self-care (01) ==
PROVIDERS: PCP Family Medicine; Visit Provider Family Medicine
DX: Z12.31 Encounter for screening mammogram for malignant neoplasm of breast (principal)
CPT/HCPCS: 77063; 77067

== ENCOUNTER 2022-08-10 08:54 | Outpatient (CLI) | payer MEDICAID, SELFPAY ==
--- NOTE | 2022-08-10 09:04 | MR_ITS ---
WS: [id number] MRI LUMBAR SPINE NONCONTRAST HISTORY: LUMBAR BACK PAIN W/RADICULOPATHY AFFECTING L LOWER EXTREMITY, prior surgery. COMPARISON: MRI 06/28/2019 TECHNIQUE: Sagittal and axial multisequence imaging is submitted. Very mild straightening of the normal lumbar lordosis. Posterior alignment is normal. Disc spaces and vertebral body heights are well-preserved. Conus terminates normally at L1-2 disc level. T12-L1: Moderate bilateral facet joint arthritis. No significant stenosis. L1-L2: Mild bilateral facet joint arthritis. Very mild narrowing of the subarticular recesses and for aruna. No high-grade stenosis. L2-L3: Mild annular disc bulging effacing the ventral CSF. Moderate ligamentum flavum and facet arthr itis. Mild bilateral foraminal stenosis. Similar to the prior exam. L3-L4: Mild annular disc bulge. Moderate facet joint arthritis. LEFT hemilaminectomy defect. Mild myron tral and subarticular recess stenosis. Moderate bilateral foraminal stenosis with encroachment upon t he exiting L3 nerve roots. Similar to the prior study. L4-L5: Moderate annular disc bulge with a new LEFT hemilaminectomy defect. Marked facet joint arthrit is. Effacement of ventral CSF and narrowing of the subarticular recesses. Moderate bilateral foramina l stenosis with narrowing of the subarticular recesses. Encroachment upon the L4 nerve roots bilatera lly. Very mild progression of foraminal stenosis since 2019. L5-S1: Mild facet joint arthritis. No high-grade stenosis. Paravertebral soft tissues are negative. MR/MR lumbar spine wo con* [id number] IMPRESSION: 1. New since the prior study from 2019 are LEFT hemilaminectomy defects at L3- 4 and L4-5. 2. Continued bilateral foraminal stenosis most significant at L3-4 and L4-5. 3. Progression of foraminal stenosis at L4-5 since 2019 with narrowing causing deformity of the L4 nerve roots. 4. No high-grade central stenosis.
== END 2022-08-10 08:55 | disposition home or self-care (01) ==
LOC: RAD 08:56
PROVIDERS: PCP Family Medicine; Visit Provider Internal Medicine
DX: M54.16 Radiculopathy, lumbar region (principal); M48.061 Spinal stenosis, lumbar region without neurogenic claudication
CPT/HCPCS: 72148

== ENCOUNTER 2022-08-17 14:59 | Outpatient (CLI) | payer MEDICAID, SELFPAY ==
--- NOTE | 2022-08-17 14:45 | US_ITS ---
WS: [id number] US transvaginal [id number] HISTORY: pelvic pain COMPARISON: None available. Status post hysterectomy. No midline mass is identified. No fluid in the central pelvis. No RIGHT adnexal mass. No ovary identified. Left ovary: 3.8 cm x 1.8 cm x 2.6 cm. Several small follicles within the ovary. No solid mass or cyst . US/US transvaginal [id number] IMPRESSION: 1. Status post hysterectomy. No midline mass. 2. RIGHT ovary is not identified. May been surgically removed also. 3. Negative LEFT ovary.
== END 2022-08-17 15:00 | disposition home or self-care (01) ==
LOC: RAD 15:01
PROVIDERS: PCP Family Medicine; Visit Provider Family Medicine
DX: R10.2 Pelvic and perineal pain (principal)
CPT/HCPCS: 76830

== ENCOUNTER → 2022-08-26 14:33 | Outpatient (BNVA) | payer MEDICAID, SELFPAY | PROVIDERS: PCP Family Medicine; Referring Provider Internal Medicine; Visit Provider Physician Assistant | DX: M48.062 Spinal stenosis, lumbar region with neurogenic claudication (principal) | CPT/HCPCS: 99213 ==

== ENCOUNTER 2023-02-03 15:49 | Outpatient (CLI) | payer MEDICAID, SELFPAY ==
--- NOTE | 2023-02-03 16:19 | XRR_ITS ---
PROCEDURE INFORMATION: Exam: XR Chest Exam date and time: 02/03/2023 4:27 PM Age: 42 years old Clinical indication: Other: Unexplained weight loss TECHNIQUE: Imaging protocol: Radiologic exam of the chest. Views: 2 views. COMPARISON: CR XR chest 1V portable [id number] 06/17/2022 11:54 PM FINDINGS: Lungs: Small indistinct nodular density projecting over the costochondral junction of the 1st rib more apparent on the current study inconclusive for pulmonary nodule and should be clarified on CT examination of the chest. Lung stevens are otherwise aerated and clear. There are acute tiny nodules within the right mid lung zone unchanged likely granulomatous in nature. Pleural spaces: Unremarkable. No pleural effusion. No pneumothorax. Heart/Mediastinum: Unremarkable. No cardiomegaly. Bones/joints: Unremarkable for age. XR/XR chest 2V* [id number] IMPRESSION: Questionable small indistinct pulmonary nodule right upper lobe for which follow-up is nonemergent CT chest recommended for clarification.
== END 2023-02-03 15:50 | disposition home or self-care (01) ==
LOC: RAD 15:53
PROVIDERS: PCP Family Medicine; Visit Provider Family Medicine
DX: R63.4 Abnormal weight loss (principal); R91.1 Solitary pulmonary nodule
CPT/HCPCS: 71046; 80053; 84443; 85025

== ENCOUNTER 2023-02-10 12:40 | Outpatient (CLI) | payer MEDICAID, SELFPAY ==
[2023-02-10] MEDS: iohexol 350 mg/mL 500 mL Btl (per mL) IV (12:44)
--- NOTE | 2023-02-10 13:00 | CT_ITS ---
WS: [id number] CT chest w con* [id number] HISTORY: right pulmonary nodule TECHNIQUE: Axial imaging performed through the thorax. Coronal and sagittal reformats are submitted. All CT scans at [facility] use at least one of these dose optimization techniques: automated exposure control; mA and/or kV adjustment per patient size (includes targeted exams where dose is mat ched to clinical indication); or iterative reconstruction. CONTRAST: Omnipaque 350; 100 mL IV. DLP: 254.93 mGy.cm COMPARISON: None available. Lungs and central airway: Normal. Pleura: Normal. No pleural effusion. Heart and pericardium: Normal size heart with no pericardial effusion. Mediastinum and charity: Small subcentimeter and benign-appearing mediastinal lymph nodes. Vessels: Normal size aortic and pulmonary artery. No coronary artery calcifications. Chest wall and lower neck: No soft tissue masses. Upper abdomen: Hepatic granulomata. Hepatic steatosis along the falciform ligament. No adrenal mass. Osseous structures: No destructive process. IMPRESSION: 1. Negative chest CT. 2. No pulmonary mass or nodules. No pneumonia. 3. No adenopathy.
== END 2023-02-10 12:41 | disposition home or self-care (01) ==
LOC: RAD 12:40
PROVIDERS: PCP Family Medicine; Visit Provider Family Medicine
DX: R91.1 Solitary pulmonary nodule (principal); K76.0 Fatty (change of) liver, not elsewhere classified
CPT/HCPCS: 71260; Q9967

== ENCOUNTER → 2023-02-14 10:38 | Outpatient (BNVA) | payer MEDICAID, SELFPAY | PROVIDERS: PCP Family Medicine; Visit Provider Nurse Practitioner Family | DX: J02.9 Acute pharyngitis, unspecified (principal); R05.8 Other specified cough | CPT/HCPCS: 87400; 87426; 87880 ==

== ENCOUNTER 2023-02-26 15:01 | Emergency (ER) | payer MEDICAID, SELFPAY ==
--- NOTE | 2023-02-26 15:04 | ECG_ITS ---
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 Measurements Intervals [place] Rate: 77 P: 65 NM: 135 QRS: 68 QRSD: 83 T: 44 QT: 373 QTc: 423 Interpretive Statements SINUS RHYTHM NONSPECIFIC T-WAVE ABNORMALITY Incomplete right bundle branch block No previous ECG available for comparison Electronically Signed On 02-27-2023 13:47:15 PHOTOLITHOGRAPHIC STRIPPER by Cinda Wright M.D. [email or web address]
--- NOTE | 2023-02-26 15:04 | XRR_ITS ---
PROCEDURE INFORMATION: Exam: XR Chest Exam date and time: 02/26/2023 3:23 PM Age: 42 years old Clinical indication: Pain; Chest pressure; Additional info: Chest pain TECHNIQUE: Imaging protocol: Radiologic exam of the chest. Views: 1 view. COMPARISON: CT chest w con* [id number] 02/10/2023 12:59 PM FINDINGS: Lungs: Unremarkable. No consolidation. Pleural spaces: Unremarkable. No pleural effusion. No pneumothorax. Heart/Mediastinum: Unremarkable. No cardiomegaly. Bones/joints: Unremarkable. XR/XR chest 1V portable [id number] IMPRESSION: No acute findings.
[2023-02-26 15:09] VITALS: BP 126/87; PULSE 88; RESP 15; O2SAT 98
[2023-02-26 15:46] LABS: Basophils # 0.1 10^3/uL (0.0-0.1); Basophils % 0.8 %; Eosinophils # 0.1 10^3/uL (0.0-0.8); Eosinophils % 1.3 %; Hematocrit 42.8 % (36-47); Lymphocytes # 2.9 10^3/uL (0.8-4.8); Lymphocytes % 31.1 %; Mean Corpuscular HGB Conc 34.1 g/dL (30-55); Mean Corpuscular Hemoglobin 30.4 pg (27-33); Mean Platelet Volume 10.8 fL (7.4-10.4); Monocytes # 0.5 10^3/uL (0.2-0.9); Monocytes % 5.5 %; Neutrophils % 61.1 %; Nucleated Red Blood Cells % 0 %; Platelet Count 268 10^3/cmm (157-399); Red Blood Count 4.81 10^6/uL (3.85-5.65); Red Cell Distribution Width 13.2 % (12.1-15.1); White Blood Count 9.16 10^3/uL (3.29-11.43)
[2023-02-26 16:01] LABS: Alanine Aminotransferase 15 U/L (0-33); Albumin Level 4.1 g/dL (3.5-5.2); Alkaline Phosphatase 61 U/L (35-105); Anion Gap 14.5 (5-19); Aspartate Amino Transferase 19 U/L (0-32); Blood Urea Nitrogen 7 mg/dL (6-20); Calcium 9.1 mg/dL (8.5-10.5); Carbon Dioxide 25 mmol/L (22-29); Chloride 105 mmol/L (98-107); Globulin 2.7 g/dL (1.3-4.6); Glomerular Filtration Rate 78.3 mL/min (90-130); Glucose 82 mg/dL (65-115); Osmolality Calculated 289 mOsm/kg (285-295); Potassium 3.5 mmol/L (3.5-5.1); Sodium 141 mmol/L (136-145); Total Bilirubin 0.4 mg/dL (0.15-1.2); Total Protein 6.8 g/dL (6.6-8.7)
[2023-02-26 16:03] LABS: Troponin(5th) Baseline < 6 ng/L (0-10)
[2023-02-26 16:43] VITALS: BP 112/71; PULSE 66; O2SAT 97
--- NOTE | 2023-02-26 16:51 | W.ED.CHESTPA ---
HPI - Chest Pain General: Chief Complaint: Chest Pain Stated Complaint: reported chest pain Time Seen by Provider: 02/26/23 16:50 History of Present Illness: 42-year-old female presents emergency department complaints of substernal chest pain she states that this has been ongoing for many months she states she has been told she has a murmur in the past and she states that 3 days ago her chest pain again started becoming slightly worse she states it is currently a 4 out of 10. She states that she thought she should come to the emergency department to get it evaluated. She states her primary care physician is also checking her kidneys although she states she does not know why. She denies nausea vomiting fevers chills or night sweats. She denies shortness of breath dizziness lightheaded feeling or diaphoresis. She states that she has noticed intermittently and on occasion that she will feel like her heart is having extra beats when she lays down to rest. Associated symptoms: Reports palpitations Review of Systems Card: Reports: chest pain and palpitations : Reports: urinary urgency PFSH ED PFSH: Medical History Anxiety Chronic low back pain with left-sided sciatica Chronic steroid use Depression MIREILLE (generalized anxiety disorder) Hepatitis C antibody positive in blood High risk medication use Immunization counseling Inflammatory arthritis Joint pain Long-term use of high-risk medication Opioid contract exists Seasonal allergies Viral syndrome Surgical History H/O carpal tunnel repair H/O laminectomy H/O: hysterectomy History of tonsillectomy and adenoidectomy Family History Other CAD (coronary artery disease) Cancer Diabetes Family history of premature coronary artery disease Hyperlipidemia Hypertension Rheumatoid arthritis Stroke Denies family history of Lupus Chronic kidney disease (CKD) Lung disease Social History Smoking and tobacco/nicotine status: current every day tobacco/nicotine user cigarettes Packs smoked per day: 1.5 Years cigarettes smoked: 15 Second hand smoke exposure: Yes Alcohol intake: never Substance/Drug Use: current Substance/Drug use frequency: few times a month Lives independently: Yes Household members: spouse Marital status: Current gender identity: Female Special juan needs: No Physical Exam Narrative: EXAM NARRATIVE: Constitutional: the patient appears well nourished and with normal development. Vital signs reviewed as documented. HENMT: Normocephalic, atraumatic. Extermal ears with normal appearance without drainage. Nose without drainage, normal appearance. Mucus membranes moist. Neck is supple, No jugular venous distension, trachea is midline, no appreciable carotid bruits. No lymphadenopathy. No meningeal signs. Flexion, extension and lateral rotation is without pain. Eyes: Pupils are equal, round, reactive to light and accommodation. No scleral icterus. Extra-ocular movement are intact. Thorax is symmetrical and with equal rise and fall with respirations. Resp: Lungs are clear to auscultation. No wheezes, rales, crackles or ronchi at present. Cardio: Regular rate and rhythm. Positive S1, S2. No appreciable murmurs, rubs or gallops. GI: Abdominal exam reveals normal bowel sounds to all quadrants. No organomegaly. No obvious palpable masses noted. No hepatomegally appreciated. Soft, nontender to palpation. Extremity: Extremities are non-edematous and both femoral and pedal pulses are 2+ and equal bilaterally. Moves all extremities well, sensation in all extremities. Neuro: Alert and oriented x4, person, place, time and situation. Cranial nerves II through XII are grossly intact, there is no focal neurological deficits that I can appreciate at present. Motor strength in the upper and lower extremities are equal and bilateral 5/5. Psych: Cooperative, calm, normal thought process, appropriate judgment. Skin: No lesions, rashes. No gross abnormalities noted. Back: Symmetrical, no obvious deformity, No CVA tenderness Course Vital Signs: Vital signs: Vital Signs Pulse Rate 67 02/26/23 17:11 Respiratory Rate 15 02/26/23 15:09 Blood Pressure 98/74 02/26/23 17:11 Pulse Oximetry 98 02/26/23 17:11 Oxygen Delivery Me thod Room Air 02/26/23 15:09 MDM - Chest Pain Medical Decision Making Physical exam completed and documented, I will obtain urinalysis, CBC CMP cardiac enzymes twelve-lead EKG and chest x-ray as well as provide her cardiac dose aspirin. Medical Records I reviewed the patient's medical records. Lab Data I reviewed the patient's lab results. 02/26/23 15:22 02/26/23 15:22 Radiology Impressions Chest X-Ray 02/26/23 15:04 IMPRESSION: No acute findings. Laboratory Results WBC 9.16 10^3/uL (3.29-11.43) 02/26/23 15:22 RBC 4.81 10^6/uL (3.85-5.65) 02/26/23 15:22 Hgb 14.60 g/dL (11.27-16.99) 02/26/23 15:22 Hct 42.8 % (36-47) 02/26/23 15:22 MCV 89.0 fl (85-98) 02/26/23 15: MCH 30.4 pg (27-33) 02/26/23 15: MCHC 34.1 g/dL (30-55) 02/26/23 15:22 RDW 13.2 % (12.1-15.1) 02/26/23 15:22 Plt Count 268 10^3/cmm (157-399) 02/26/23 15: MPV 10.8 fL (7.4-10.4) H 02/26/23 15: Neut % (Auto) 61.1 % 02/26/23 15: Lymph % (Auto) 31.1 % 02/26/23 15:22 [place] % (Auto) 5.5 % 02/26/23 15: Eos % (Auto) 1.3 % 02/26/23 15:22 Baso % (Auto) 0.8 % 02/26/23 15: Neut # (Auto) 5.60 10^3/uL (1.8-7.7) 02/26/23 15:22 Lymph # (Auto) 2.9 10^3/uL (0.8-4.8) 02/26/23 15:22 [place] # (Auto) 0.5 10^3/uL (0.2-0.9) 02/26/23 15: Eos # (Auto) 0.1 10^3/uL (0.0-0.8) 02/26/23 15:22 Baso # (Auto) 0.1 10^3/uL (0.0-0.1) 02/26/23 15:22 Nucleated RBC % (auto) 0 % 02/26/23 15: Nucleated RBCs # 0.0 /100WBC 02/26/23 15:22 Sodium 141 mmol/L (136-145) 02/26/23 15:22 Potassium 3.5 mmol/L (3.5-5.1) 02/26/23 15:22 Chloride 105 mmol/L (98-107) 02/26/23 15:22 Carbon Dioxide 25 mmol/L (22-29) 02/26/23 15:22 Anion Gap 14.5 (5-19) 02/26/23 15:22 BUN 7 mg/dL (6-20) 02/26/23 15:22 Creatinine 0.8 mg/dL (0.5-0.9) 02/26/23 15:22 GFR Calculation 78.3 mL/min (90-130) L 02/26/23 15:22 Glucose 82 mg/dL (65-115) 02/26/23 15:22 Calculated Osmolality 289 mOsm/kg (285-295) 02/26/23 15:22 Calcium 9.1 mg/dL (8.5-10.5) 02/26/23 15:22 Total Bilirubin 0.4 mg/dL (0.15-1.2) 02/26/23 15:22 AST 19 U/L (0-32) 02/26/23 15:22 ALT 15 U/L (0-33) 02/26/23 15:22 Alkaline Phosphatase 61 U/L (35-105) 02/26/23 15:22 Troponin T Baseline < 6 ng/L (0-10) 02/26/23 15:22 Total Protein 6.8 g/dL (6.6-8.7) 02/26/23 15:22 Albumin 4.1 g/dL (3.5-5.2) 02/26/23 15: Globulin 2.7 g/dL (1.3-4.6) 02/26/23 15:22 Urine Color Yellow (Yellow) 02/26/23 17:00 Urine Appearance Clear (CLEAR) 02/26/23 17:00 Urine pH 8 (5-7) H 02/26/23 17:00 Ur Specific [place] 1.005 (1.005-1.030) 02/26/23 17:00 Urine Protein Neg (Negative) 02/26/23 17:00 Urine Glucose (UA) Norm (Normal) 02/26/23 17:00 Urine Ketones Negative (Negative) 02/26/23 17:00 Urine Blood Neg (Negative) 02/26/23 17:00 Urine Nitrate Negative (Negative) 02/26/23 17:00 Urine Bilirubin Neg (Negative) 02/26/23 17:00 Prot Sulfosalicylic Acd Negative (Negative) 02/26/23 17:00 Urine Urobilinogen Norm mg/dL (Negative) 02/26/23 17:00 Ur Leukocyte Esterase Negative (Negative) 02/26/23 17:00 All radiology interpretation(s) finalized by discharge Discharge Plan Discharge Patient Disposition: Home Clinical Impression: Atypical chest pain, Dysuria Condition: Stable Prescriptions: No Action bupropion HCl 300 mg tablet extended release 24 hr 300 mg PO QAM Qty: 90 1RF methocarbamol 500 mg tablet 500 mg PO BID Qty: 60 6RF pregabalin 200 mg capsule 200 mg PO TID Qty: 90 3RF solifenacin [Vesicare] 10 mg tablet 10 mg PO DAILY Qty: 30 3RF Discharge Orders: Discharge ED (Routine); Ordered 02/26/23 Ordered By: Ty Piedra Referrals: Lisa Palomino DO [Primary Care Provider] - Discharge Diet: Advance as tolerated Discharge Activity: Resume usual activity Patient Instructions: Opioid Safety, Pain Management Activity Restrictions/Additional Instructions: Activity Restrictions/Additional Instructions: Thank you for choosing [facility] for your healthcare needs today. Please realize that you were seen in the Emergency Department and that we are providing you with an emergency medical screening exam and this may not be complete and all inclusive of all the testing and or medical work-up that you may need to determine your ailment or severity of your illness. It is very important that you follow-up as instructed with your Primary care provider or Specialist for additional evaluation and to discuss your medical treatment plan. You may return to the Emergency Department should you have concerns or if your condition changes or worsens in any way. Coding Level of Care Code ED Digital Sales Planner for Jayla Zheng
[2023-02-26] MEDS: aspirin 81 mg Chew Tablet 324 MG PO (17:00)
--- NOTE | 2023-02-26 17:04 | ECG_ITS ---
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 Measurements Intervals [place] Rate: 60 P: 63 ME: 145 QRS: 74 QRSD: 83 T: 51 QT: 424 QTc: 424 Interpretive Statements SINUS RHYTHM Normal EKG Compared to ECG 02/26/2023 15:10:18 T-wave abnormality no longer present Electronically Signed On 02-27-2023 13:55:22 RN FLIGHT by Cinda Wright M.D. [id number]
[2023-02-26 17:11] VITALS: BP 98/74; PULSE 67; O2SAT 98
[2023-02-26 17:36] LABS: Add Urine Microscopic? NO; Charge for UA Resulting for Rev
[2023-02-26 17:39] LABS: Bilirubin Urine Neg (Negative); Blood Urine Neg (Negative); Glucose Urine UA Norm (Normal); Ketones Urine Negative (Negative); Leukocyte Esterase Urine Negative (Negative); Nitrate Urine Negative (Negative); Protein Urine Neg (Negative); Specific Gravity, Urine 1.005 (1.005-1.030); Sulfosalicylic Acid Urine Negative (Negative); Urine Appearance Clear (CLEAR); Urine Color Yellow (Yellow); Urobilinogen Urine Norm (Negative); pH Urine 8 (5-7)
[2023-02-26] MEDS: HYDROcodone-acetaminophen 5-325 mg Tablet 1 TAB PO (18:24)
[2023-02-26 18:33] LABS: Troponin 5 2HR Delta 0.00001 ABS# (0-10)
[2023-02-26 19:11] VITALS: BP 121/67; PULSE 60; O2SAT 97
== END 2023-02-26 18:30 | disposition home or self-care (01) ==
PROVIDERS: Emergency Medicine; Emergency Provider Internal Medicine; PCP Family Medicine
DX: R07.89 Other chest pain (principal); R30.0 Dysuria; F17.210 Nicotine dependence, cigarettes, uncomplicated; Z86.19 Personal history of other infectious and parasitic diseases
CPT/HCPCS: 36415; 71045; 80053; 81003; 84484; 85025; 93005; 93010; 99285

== ENCOUNTER → 2023-03-04 11:14 | Outpatient (BNVA) | payer MEDICAID, SELFPAY | PROVIDERS: PCP Family Medicine; Visit Provider Family Medicine | DX: R63.4 Abnormal weight loss (principal) | CPT/HCPCS: 80048 ==

== ENCOUNTER 2023-04-22 08:17 | Emergency (ER) | payer MEDICAID, SELFPAY ==
[2023-04-22 08:30] VITALS: BP 136/84; PULSE 95; RESP 17; TEMP 36.5; O2SAT 99; BMI 25.0
--- NOTE | 2023-04-22 08:41 | W.ED.NAVMDI ---
HPI - Nausea/Vomiting/Diarrhea General: Chief complaint: Nausea/Vomiting/Diarrhea Stated complaint: N/V Time Seen by Provider: 04/22/23 08:29 Source: patient Mode of arrival: ambulatory Limitations: no limitations History of Present Illness: This patient presents to the emergency department because she thinks she might be having symptoms related to not having her Lyrica for the past 9 days. She normally takes Lyrica for chronic nerve pain of her left lower leg. She apparently ran out of the medication and her doctor who is on vacation and therefore could not get a refill. She has been experiencing chills and malaise and some nausea with vomiting and loose stools and inability to tolerate much in the way of oral intake. She states her urine output has decreased but she has not noted any frequency or low back pain. She had a prior celiotomy for a trauma related bowel injury but otherwise no other abdominal surgeries. He has apparent chronic urinary frequency and takes a antispasmodic for that condition. She has had her other medications available to her and has been taking those faithfully. She has not had any known exposure to infectious disease and no one else in the home is ill currently. No other constitutional symptoms to include sore throat cough etc. MD elicited complaint: nausea, vomiting and diarrhea Associated symtoms: Denies chest pain, dysuria, headache(s) or palpitations Review of Systems Const: Reports: fever(s), chills and body aches ENMT: Denies: throat pain, odynophagia, nasal discharge or nasal congestion Card: Denies: chest pain or palpitations Resp: Denies: dyspnea, productive cough or non-productive cough : Denies: flank pain, difficulty voiding or dysuria Musc: Reports: extremity pain; Denies: neck pain or back pain Skin/Breast: Denies: rash Neuro: Denies: headache(s), numbness in extremities or weakness in extremities PFSH ED PFSH: Medical History Viral syndrome Joint pain Chronic steroid use Hepatitis C antibody positive in blood Immunization counseling High risk medication use Inflammatory arthritis Seasonal allergies Anxiety Opioid contract exists Long-term use of high-risk medication Chronic low back pain with left-sided sciatica MIREILLE (generalized anxiety disorder) Depression Surgical History H/O laminectomy History of tonsillectomy and adenoidectomy H/O: hysterectomy H/O carpal tunnel repair Family History Other CAD (coronary artery disease) Cancer Diabetes Family history of premature coronary artery disease Hyperlipidemia Hypertension Rheumatoid arthritis Stroke Denies family history of Lupus Chronic kidney disease (CKD) Lung disease Social History Smoking and tobacco/nicotine status: current every day tobacco/nicotine user cigarettes Packs smoked per day: 1.5 Years cigarettes smoked: 15 Second hand smoke exposure: Yes Alcohol intake: never Substance/Drug Use: current Substance/Drug use frequency: few times a month Lives independently: Yes Household members: spouse Marital status: Current gender identity: Female Special juan needs: No Physical Exam Narrative: EXAM NARRATIVE: She is alert makes good eye contact and answers questions appropriately and is cooperative. Const: COMMON NORMALS: no acute distress and patient oriented x3 GENERAL APPEARANCE: cooperative NUTRITIONAL APPEARANCE: thin HENMT: COMMON NORMALS: normocephalic, atraumatic, Normal nasal mucous membranes and turbinates present, moist oral mucous membranes and oropharynx normal HEAD & SCALP: normocephalic and atraumatic NOSE: Normal nasal mucous membranes and turbinates present Eye: COMMON NORMALS: Equal, round and reactive pupils present, EOMs intact bilaterally and conjunctivae normal CONJUNCTIVA: Yes conjunctivae normal PUPIL: Yes Equal, round and reactive pupils present Neck/C-Spine: COMMON NORMALS: full ROM and no lymphadenopathy Resp: COMMON NORMALS: normal respiratory effort, No use of accessory muscles and clear to auscultation bilaterally AUSCULTATION: clear to auscultation bilaterally Cardio: COMMON NORMALS: regular rate, regular rhythm, No murmurs present (Cardio) and Peripheral pulses 2+ throughout RATE: regular rate RHYTHM: regular rhythm PERIPHERAL PULSES: Peripheral pulses 2+ throughout GI: COMMON NORMALS: Normal to inspection, nondistended, normoactive bowel sounds present OTHER: Abdominal examination reveals generalized diffuse tenderness but no rebound or guarding. No masses noted. : COMMON NORMALS: Yes no CVA tenderness BLADDER/KIDNEY EXAM: Yes no CVA tenderness Back/Pelvis: COMMON NORMALS: no CVA tenderness, thoracic and lumbar spine normal to inspection, no thoracic nor lumbar tenderness and thoraco-lumbar ROM normal Extremity: COMMON NORMALS: normal to inspection, full ROM, capillary refill normal, no calf tenderness and no pedal edema Neuro: COMMON NORMALS: patient oriented x3, moves all extremities, no focal motor deficits and no sensory deficits noted CRANIAL NERVES: Yes CN normal except as noted Psych: COMMON NORMALS: mental status grossly normal Skin: COMMON NORMALS: no rashes or lesions noted, no wounds, turgor normal and no jaundice GENERAL SKIN EXAM: no rashes or lesions noted and turgor normal Course Reevaluation(s): Reevaluation #1: Pharmacy staff informing that during medication reconciliation the patient stated that she had all her medications and was taking them. Time: 09:35 Reevaluation #2: Patient continues to do okay there is no evidence of persistent nausea vomiting diarrhea while in the emergency department. We discussed current findings and expected course. We confirmed that she has an active prescription available for her at the [facility]. She does have an abnormally urinalysis and whether or not that that is a contributing factor is unclear however we will give her a 3-day course of Macrobid to clear any potential lower urinary tract infection. She does not have any evidence of sepsis or any other concerning findings at this time to suggest a serious illness other than her influenza. Time: 10:48 Vital Signs: Vital signs: Vital Signs Temperature 97.7 F 04/22/23 08:30 Pulse Rate 95 04/22/23 08:30 Respiratory Rate 17 04/22/23 08:30 Blood Pressure 136/84 04/22/23 08:30 Pulse Oximetry 98 04/22/23 10:09 Oxygen Delivery Me thod Room Air 04/22/23 10:09 MDM - Nausea/Vomiting/Diarrhea Medical Decision Making Patient's had several days of nausea vomiting diarrhea body aches and subjective fevers. She was concerned it may have been related to her Lyrica with drawl. She apparently has not had her Lyrica for several days because of prescriber was on vacation. No known exposure to infectious disease. Clinical examination was unrevealing for any evidence of serious illness. She had normal vital signs and a unremarkable clinical examination other than some mild abdominal voluntary guarding and tenderness. Ancillary studies were obtained which were essentially unremarkable other than she had a borderline potassium of 3.2, positive influenza type B, and an abnormal urinalysis with some epithelial cells present as well. Patient patient received the benefit of antiemetics, IV fluids. We also confirmed that she had an active prescription available for her Lyrica. He is currently stable we will cover her for lower urinary tract infection as well and provide her antiemetics. Medical Records I reviewed the patient's medical records. Lab Data I reviewed the patient's lab results. 04/22/23 08:51 04/22/23 08:51 Laboratory Results WBC 10.17 10^3/uL (3.29-11.43) 04/22/23 08:51 RBC 5.40 10^6/uL (3.85-5.65) 04/22/23 08:51 Hgb 16.30 g/dL (11.27-16.99) 04/22/23 08:51 Hct 47.8 % (36-47) H 04/22/23 08:51 MCV 88.5 fl (85-98) 04/22/23 08:51 MCH 30.2 pg (27-33) 04/22/23 08:51 MCHC 34.1 g/dL (30-55) 04/22/23 08:51 RDW 13.3 % (12.1-15.1) 04/22/23 08:51 Plt Count 349 10^3/cmm (157-399) 04/22/23 08:51 MPV 10.1 fL (7.4-10.4) 04/22/23 08:51 Neut % (Auto) 74.4 % 04/22/23 08:51 Lymph % (Auto) 19.1 % 04/22/23 08:51 Floyd % (Auto) 4.9 % 04/22/23 08:51 Eos % (Auto) 0.7 % 04/22/23 08:51 Baso % (Auto) 0.7 % 04/22/23 08:51 Neut # (Auto) 7.57 10^3/uL (1.8-7.7) 04/22/23 08:51 Lymph # (Auto) 1.9 10^3/uL (0.8-4.8) 04/22/23 08:51 Floyd # (Auto) 0.5 10^3/uL (0.2-0.9) 04/22/23 08:51 Eos # (Auto) 0.1 10^3/uL (0.0-0.8) 04/22/23 08:51 Baso # (Auto) 0.1 10^3/uL (0.0-0.1) 04/22/23 08:51 Nucleated RBC % (auto) 0 % 04/22/23 08:51 Nucleated RBCs # 0.0 /100WBC 04/22/23 08:51 Sodium 139 mmol/L (136-145) 04/22/23 08:51 Potassium 3.2 mmol/L (3.5-5.1) L 04/22/23 08:51 Chloride 100 mmol/L (98-107) 04/22/23 08:51 Carbon Dioxide 27 mmol/L (22-29) 04/22/23 08:51 Anion Gap 15.2 (5-19) 04/22/23 08:51 BUN 10 mg/dL (6-20) 04/22/23 08:51 Creatinine 0.8 mg/dL (0.5-0.9) 04/22/23 08:51 GFR Calculation 78.3 mL/min (90-130) L 04/22/23 08:51 Glucose 94 mg/dL (65-115) 04/22/23 08:51 Calculated Osmolality 287 mOsm/kg (285-295) 04/22/23 08:51 Calcium 9.4 mg/dL (8.5-10.5) 04/22/23 08:51 Total Bilirubin 0.4 mg/dL (0.15-1.2) 04/22/23 08:51 AST 18 U/L (0-32) 04/22/23 08:51 ALT 17 U/L (0-33) 04/22/23 08:51 Alkaline Phosphatase 71 U/L (35-105) 04/22/23 08:51 Total Protein 7.4 g/dL (6.6-8.7) 04/22/23 08:51 Albumin 4.4 g/dL (3.5-5.2) 04/22/23 08:51 Globulin 3.0 g/dL (1.3-4.6) 04/22/23 08:51 Lipase 34 U/L (13-60) 04/22/23 08:51 HCG, Qual Negative (Negative) 04/22/23 10:07 Urine Color Yellow (Yellow) 04/22/23 10:07 Urine Appearance Clear (CLEAR) 04/22/23 10:07 Urine pH 6.5 (5-7) 04/22/23 10:07 Ur Specific [place] 1.015 (1.005-1.030) 04/22/23 10:07 Urine Protein Trace (Negative) 04/22/23 10:07 Urine Glucose (UA) Norm (Normal) 04/22/23 10:07 Urine Ketones 1+ (Negative) H 04/22/23 10:07 Urine Blood Trace (Negative) H 04/22/23 10:07 Urine Nitrate Negative (Negative) 04/22/23 10:07 Urine Bilirubin 1+ (Negative) H 04/22/23 10:07 Urine Urobilinogen Neg mg/dL (Negative) 04/22/23 10:07 Ur Leukocyte Esterase Trace (Negative) H 04/22/23 10:07 Urine RBC Rare /hpf (0-2) 04/22/23 10:07 Urine WBC 0-4 /hpf (0-5) H 04/22/23 10:07 Ur Squamous Epith Cells 5-10 /hpf (0-5) H 04/22/23 10:07 Amorphous Sediment 2+ /hpf 04/22/23 10:07 Urine Bacteria 1+ /hpf (NONE) H 04/22/23 10:07 Urine Mucus 3+ /hpf 04/22/23 10:07 Influenza Type A Ag negative (Negative) 04/22/23 09:05 Influenza Type B Ag positive (Negative) H 04/22/23 09:05 SARS-CoV-2 Ag (Rapid) negative (Negative) 04/22/23 09:05 No radiology studies performed this visit Discharge Plan Discharge Patient Disposition: Home Clinical Impression: Influenza B, Lower urinary tract infection Condition: Stable Prescriptions: New nitrofurantoin monohyd/m-cryst [Macrobid] 100 mg capsule 100 mg PO BID 3 Days Qty: 6 0RF Rx Instructions: must administer with a meal/food ondansetron 4 mg tablet,disintegrating 4 mg PO TID PRN (Reason: nausea and vomiting) 5 Days Qty: 14 0RF No Action bupropion HCl 300 mg tablet extended release 24 hr 300 mg PO QAM Qty: 90 1RF solifenacin [Vesicare] 10 mg tablet 10 mg PO DAILY Qty: 30 3RF pregabalin 200 mg capsule 200 mg PO TID Qty: 90 3RF acetaminophen 325 mg Tablet 650 mg PO QID PRN (Reason: Pain) tramadol 50 mg tablet 50 - 100 mg PO Q6H PRN (Reason: Pain) Discharge Orders: Discharge ED (Routine); Ordered 04/22/23 Ordered By: Ousmane Alonso Referrals: Lisa Palomino DO [Primary Care Provider] - Discharge Diet: Advance as tolerated and Clear Liquid Discharge Activity: Increase activity as tolerated Patient Instructions: Opioid Safety, Pain Management Activity Restrictions/Additional Instructions: As we discussed while you are in the emergency department you have influenza. You should practice good hygiene and limit your contact with others until you are asymptomatic. We have provided a medication to help with your nausea and vomiting. It is important to drink plenty of fluids to include sports drinks, half-strength apple juice etc. Avoid milk products and caffeinated beverages until you are feeling better. He also has some evidence that you might have a lower urinary tract or bladder infection and we provided a 3-day course of antibiotics for that condition. If your symptoms do not improve or worsen at any time you are welcome to return to the emergency department for reevaluation. Coding Level of Care Code ED Mechanical Service Technician for Jayla Zheng
[2023-04-22] MEDS: lactated ringers 1,000 ML 999 ML IV (08:58)
[2023-04-22 09:05] LABS: Basophils # 0.1 10^3/uL (0.0-0.1); Basophils % 0.7 %; Eosinophils # 0.1 10^3/uL (0.0-0.8); Eosinophils % 0.7 %; Hematocrit 47.8 % (36-47); Lymphocytes # 1.9 10^3/uL (0.8-4.8); Lymphocytes % 19.1 %; Mean Corpuscular HGB Conc 34.1 g/dL (30-55); Mean Corpuscular Hemoglobin 30.2 pg (27-33); Mean Corpuscular Volume 88.5 fl (85-98); Mean Platelet Volume 10.1 fL (7.4-10.4); Monocytes # 0.5 10^3/uL (0.2-0.9); Monocytes % 4.9 %; Neutrophils # 7.57 10^3/uL (1.8-7.7); Neutrophils % 74.4 %; Nucleated Red Blood Cells % 0 %; Platelet Count 349 10^3/cmm (157-399); Red Cell Distribution Width 13.3 % (12.1-15.1); White Blood Count 10.17 10^3/uL (3.29-11.43)
[2023-04-22 09:33] LABS: Alanine Aminotransferase 17 U/L (0-33); Albumin Level 4.4 g/dL (3.5-5.2); Alkaline Phosphatase 71 U/L (35-105); Anion Gap 15.2 (5-19); Aspartate Amino Transferase 18 U/L (0-32); Blood Urea Nitrogen 10 mg/dL (6-20); Calcium 9.4 mg/dL (8.5-10.5); Carbon Dioxide 27 mmol/L (22-29); Chloride 100 mmol/L (98-107); Glomerular Filtration Rate 78.3 mL/min (90-130); Glucose 94 mg/dL (65-115); Lipase 34 U/L (13-60); Osmolality Calculated 287 mOsm/kg (285-295); Potassium 3.2 mmol/L (3.5-5.1); Sodium 139 mmol/L (136-145); Total Bilirubin 0.4 mg/dL (0.15-1.2); Total Protein 7.4 g/dL (6.6-8.7)
[2023-04-22 09:39] VITALS: O2SAT 96
[2023-04-22 09:41] LABS: Influenza A by IFA negative (Negative); Influenza B by IFA positive (Negative); SARS Covid-2 Antigen negative (Negative)
[2023-04-22 10:09] VITALS: O2SAT 98
[2023-04-22] MEDS: ondansetron 2 mg/ML SDV 2 mL 4 MG IVP (10:11)
[2023-04-22 10:30] LABS: Glucose Urine UA Norm (Normal); HCG Qualitative Urine. Negative (Negative); Ketones Urine 1+ (Negative); Protein Urine Trace (Negative); Specific Gravity, Urine 1.015 (1.005-1.030); Urine Appearance Clear (CLEAR); Urine Color Yellow (Yellow); pH Urine 6.5 (5-7)
[2023-04-22 10:31] LABS: Add Urine Microscopic? YES; Bilirubin Urine 1+ (Negative); Blood Urine Trace (Negative); Leukocyte Esterase Urine Trace (Negative); Nitrate Urine Negative (Negative); Urobilinogen Urine Neg (Negative)
[2023-04-22 10:45] LABS: Amorphous Sediment Urine 2+ /hpf; Bacteria Urine 1+ /hpf; Mucus Urine 3+ /hpf; RBC Urine RARE /hpf (0-2); WBC Urine 0-4 /hpf (0-5)
[2023-04-22 10:46] LABS: Add Urine Culture? No
== END 2023-04-22 11:24 | disposition home or self-care (01) ==
PROVIDERS: Emergency Provider Emergency Medicine; PCP Family Medicine
DX: J10.1 Influenza due to other identified influenza virus with other respiratory manifestations (principal); N39.0 Urinary tract infection, site not specified; Z11.52 Encounter for screening for COVID-19; Z72.0 Tobacco use; Z86.19 Personal history of other infectious and parasitic diseases
CPT/HCPCS: 80053; 81001; 81025; 83690; 85025; 87426; 87804; 96374; 99284; J2405; J7120

== ENCOUNTER 2023-07-28 16:53 | Emergency (ER) | payer OTHER, SELFPAY ==
[2023-07-28 17:03] VITALS: BP 128/80; PULSE 81; RESP 18; TEMP 36.7; O2SAT 97; BMI 25.2
--- NOTE | 2023-07-28 17:15 | XRR_ITS ---
PROCEDURE INFORMATION: Exam: XR Right Hand Exam date and time: 07/28/2023 5:38 PM Age: 42 years old Clinical indication: Injury or trauma; Other: Slammed finger; Other: Unknown TECHNIQUE: Imaging protocol: Radiologic exam of the right hand. Views: 3 or more views. COMPARISON: No relevant prior studies available. FINDINGS: Bones/joints: Normal. Soft tissues: Normal. XR/XR hand RT min 3V* [id number] IMPRESSION: No acute findings.
--- NOTE | 2023-07-28 17:15 | W.ED.EXTPRO ---
HPI - Extremity Problem General: Chief complaint: Extremity Injury, Upper Stated complaint: arm and hand injury Time Seen by Provider: 07/28/23 16:54 History of Present Illness: 42-year-old female comes in today for injury to the right hand. Patient reports that she was getting into her car when she accidentally slammed the door on her right hand. Patient has some mild dorsal bruising to the hand. Patient is able to move the hand but reports significant pain. Cap refill and sensation is intact. Patient has a history of chronic foot and back pain. Patient also has anxiety and overactive bladder. Review of Systems General: Reports: 10 or more systems reviewed and unremarkable except in HPI and below Musc: Reports: extremity pain and extremity swelling PFS ED PFSH: Medical History Viral syndrome Joint pain Chronic steroid use Hepatitis C antibody positive in blood Immunization counseling High risk medication use Inflammatory arthritis Seasonal allergies Anxiety Opioid contract exists Long-term use of high-risk medication Chronic low back pain with left-sided sciatica MIREILLE (generalized anxiety disorder) Depression Surgical History H/O laminectomy History of tonsillectomy and adenoidectomy H/O: hysterectomy H/O carpal tunnel repair Family History Other CAD (coronary artery disease) Cancer Diabetes Family history of premature coronary artery disease Hyperlipidemia Hypertension Rheumatoid arthritis Stroke Denies family history of Lupus Chronic kidney disease (CKD) Lung disease Social History Smoking and tobacco/nicotine status: current every day tobacco/nicotine user cigarettes Packs smoked per day: 1.5 Years cigarettes smoked: 15 Second hand smoke exposure: Yes Alcohol intake: never Substance/Drug Use: current Substance/Drug use frequency: few times a month Lives independently: Yes Household members: spouse Marital status: Current gender identity: Female Special juan needs: No Physical Exam Const: COMMON NORMALS: alert HENMT: COMMON NORMALS: normocephalic HEAD & SCALP: normocephalic Neck/C-Spine: COMMON NORMALS: full ROM Resp: COMMON NORMALS: normal respiratory effort and clear to auscultation bilaterally AUSCULTATION: clear to auscultation bilaterally Cardio: COMMON NORMALS: regular rate RATE: regular rate GI: COMMON NORMALS: non-tender Back/Pelvis: COMMON NORMALS: thoracic and lumbar spine normal to inspection Extremity: RIGHT UPPER EXTREMITY: Yes hand & digits (Mild swelling and bruising to the dorsal right hand of the middle finger.) Right hand and digits: Yes inspection, Yes palpation, Yes ROM exam and Yes neurovascular exam (Normal) Neuro: SENSORIUM/ORIENTATION: Yes alert Skin: COMMON NORMALS: turgor normal GENERAL SKIN EXAM: turgor normal Course Vital Signs: Vital signs: Vital Signs Temperature 98.1 F 07/28/23 17:03 Pulse Rate 81 07/28/23 17:03 Respiratory Rate 18 07/28/23 17:03 Blood Pressure 128/80 07/28/23 17:03 Pulse Oximetry 97 07/28/23 17:03 Oxygen Delivery Me thod Room Air 07/28/23 17:03 MDM - Extremity (Nontraumatic) Medical Decision Making 42-year-old female comes in today with injury to the right hand. On exam patient appears nontoxic. Patient appears in no acute distress. Respirations are even lungs are clear to auscultation. Skin is warm and dry. Patient has some mild swelling and bruising to the dorsal right hand. Cap refill is intact. Differential diagnosis includes but not limited to fracture, contusion, sprain. X-ray noted no fracture. Elastic bandage was put on hand. Patient was given 1 hydrocodone for her severe pain in the ER. Patient was recommended to continue with routine medications at home. Elastic bandage and ice packs for further pain relief. Patient stated understanding. XR interpretation done by ED provider, pending radiology final review Discharge Plan Discharge Patient Disposition: Home Clinical Impression: Contusion of hand including fingers Qualifiers: Encounter type: initial encounter Laterality: right Qualified Code(s): S60.221A - Contusion of right hand, initial encounter Condition: Stable Prescriptions: No Action solifenacin [Vesicare] 10 mg tablet 10 mg PO DAILY Qty: 30 3RF bupropion HCl 300 mg tablet extended release 24 hr 300 mg PO QAM Qty: 90 1RF ondansetron 8 mg tablet,disintegrating 8 mg PO Q8H PRN (Reason: nausea and vomiting) Qty: 14 0RF pregabalin 200 mg capsule 200 mg PO TID Qty: 90 3RF acetaminophen 325 mg Tablet 650 mg PO QID PRN (Reason: Pain) tramadol 50 mg tablet 50 - 100 mg PO Q6H PRN (Reason: Pain) Discharge Orders: Discharge ED (Routine); Ordered 07/28/23 Ordered By: Oliver Acuña Referrals: Lisa Palomino DO [Primary Care Provider] - Discharge Diet: Usual diet Discharge Activity: Increase activity as tolerated Patient Instructions: Musculoskeletal Pain (ED) Activity Restrictions/Additional Instructions: Activity as tolerated. Use ice packs to the hand. Use acetaminophen ibuprofen for further pain relief. Follow-up with primary care for further instructions. Return to ED for new concerns. Coding Level of Care Code ED Phone Specialist for Jayla Zheng
[2023-07-28] MEDS: HYDROcodone-acetaminophen 5-325 mg Tablet 1 TAB PO (18:00)
== END 2023-07-28 18:15 | disposition home or self-care (01) ==
PROVIDERS: Emergency Provider Nurse Practitioner Family; PCP Family Medicine
DX: S60.221A Contusion of right hand, initial encounter (principal); F17.210 Nicotine dependence, cigarettes, uncomplicated; Z86.19 Personal history of other infectious and parasitic diseases; W23.2XXA Caught, crushed, jammed or pinched between a moving and stationary object, initial encounter
CPT/HCPCS: 73130; 99283

== ENCOUNTER → 2023-10-14 15:03 | Outpatient (BNVA) | payer OTHER, SELFPAY | PROVIDERS: PCP Family Medicine; Visit Provider Nurse Practitioner | DX: R39.9 Unspecified symptoms and signs involving the genitourinary system (principal) | CPT/HCPCS: 81000 ==

== ENCOUNTER 2024-05-29 18:22 | Emergency (ER) | payer OTHER, SELFPAY ==
[2024-05-29 18:23] VITALS: BP 128/74; PULSE 113; RESP 12; TEMP 37.1; O2SAT 96; BMI 23.0
[2024-05-29 19:04] VITALS: BP 125/104
--- NOTE | 2024-05-29 19:11 | ED_ITS ---
HPI - Back Pain/Injury General: Chief Complaint: Back Pain/Injury Stated Complaint: lower back pain recent fall Time Seen by Provider: 05/29/24 18:59 Source: patient Mode of arrival: ambulatory Limitations: no limitations History of Present Illness: Patient is a 43-year-old female who presents emergency department complaining of midline lower lumbar pain that she has been dealing with for years. States that she has had decompression surgery performed approximately 4 years ago, has been dealing with pain over that timeframe. States that she had an MRI of her back a year ago, and was told that her back is really messed up. States that she has been falling over the past few months more, her most recent fall was 2 months ago where she fell out of a semi and her pain is specifically worsened since. States that it was a twisting injury though, nontraumatic. She does not report any bowel or bladder incontinence or saddle anesthesia. Does not report any fevers, trauma, unexplained weight loss, neurological symptoms, IVDU, steroid use, or history of cancer. She takes tramadol for pain, states this has not been helping. Also states she recently was started on steroids for an upper res piratory infection and that she has not been able to sleep at night and thinks this is causing her pain to worsen. She has still been able to walk, though with pain. States that she has chronic left lower extremity neuropathy. She is not reporting any urinary symptoms. MD elicited complaint: back pain Pertinent past history: prior back pain Onset (ago): year(s) Timing: constant and progressively worsening Severity: severe Similar Symptoms Previously: Yes Quality: sharp Location: lumbar spine Exacerbating factors: movement and walking Relieving factors: none Associated symptoms: Deny abdominal pain, difficulty walking, fecal incontinence, fever(s) or syncope Related Data Home Medications ?Medication ?Instructions ?Recorded ?Confirmed acetaminophen 325 mg tablet 650 mg PO QID PRN Pain 10/14/23 tramadol 50 mg tablet 50 - 100 mg PO Q6H PRN Pain 04/22/23 10/14/23 Previous Rx's ?Medication ?Instructions ?Recorded ondansetron 8 mg disintegrating 8 mg PO Q8H PRN nausea and 05/18/23 tablet vomiting #14 tabs bupropion HCl 300 mg 24 hr tablet, 300 mg PO QAM #90 t abs 05/09/24 extended release solifenacin 10 mg tablet (Vesicare) 10 mg PO DAILY #30 tabs 08/11/23 aripiprazole 5 mg tablet 5 mg PO DAILY #90 tabs 09/07 nitrofurantoin 100 mg PO BID 7 days #14 cap s 10/14/23 monohydrate/macrocrystals 100 mg capsule (Macrobid) pregabalin 200 mg capsule 200 mg PO TID #90 caps 12/01 ketorolac 10 mg tablet 10 mg PO Q8H PRN pain #15 ta bs 05/29/24 Allergies Allergy/AdvReac Type Severity Reaction Status Date / Time Penicillins Allergy RASH/ ITCHY Verified 05/29/24 18:23 Review of Systems General: Reports: 10 or more systems reviewed and unremarkable except in HPI and below Const: Reports: other (denies trauma); Denies: fever(s), change in weight or night sweats Card: Denies: chest pain, lightheadedness or syncope Resp: Denies: dyspnea GI: Denies: abdominal pain or fecal incontinence : Denies: urinary incontinence Musc: Reports: back pain; Denies: neck pain or extremity pain Skin/Breast: Denies: rash or skin pain Neuro: Reports: numbness in extremities (Left lower extremity) and frequent falls; Denies: headache(s), weakness in extremities, sensory changes, lack of transplant coordinator rdination, difficulty walking or involuntary movements PFSH ED PFSH: Medical History Viral syndrome Joint pain Chronic steroid use Hepatitis C antibody positive in blood Immunization counseling High risk medication use Inflammatory arthritis Seasonal allergies Anxiety Opioid contract exists Long-term use of high-risk medication Chronic low back pain with left-sided sciatica MIREILLE (generalized anxiety disorder) Depression Surgical History H/O laminectomy History of tonsillectomy and adenoidectomy H/O: hysterectomy H/O carpal tunnel repair Family History Other CAD (coronary artery disease) Cancer Diabetes Family history of premature coronary artery disease Hyperlipidemia Hypertension Rheumatoid arthritis Stroke Denies family history of Lupus Chronic kidney disease (CKD) Lung disease Social History Smoking and tobacco/nicotine status: never used tobacco/nicotine Second hand smoke exposure: Yes Alcohol intake: never Substance/Drug Use: current Substance/Drug use frequency: few times a month Lives independently: Yes Household members: spouse Marital status: Current gender identity: Female Special juan needs: No Physical Exam Const: COMMON NORMALS: no acute distress, patient oriented x3, no limitations, healthy appearing and alert Resp: COMMON NORMALS: normal respiratory effort, No retractions, No use of accessory muscles and clear to auscultation bilaterally AUSCULTATION: clear to auscultation bilaterally Cardio: COMMON NORMALS: regular rate, regular rhythm, S1 normal heart sound present and S2 normal heart sound present RATE: regular rate RHYTHM: regular rhythm HEART SOUNDS: S1 normal heart sound present and S2 normal he art sound present Back/Pelvis: OTHER: Straight leg raise and cross straight leg raise positive bilaterally. Normal visual examination aside from postoperative scar to lumbar spine. No spinous process tenderness or paracervical, parathoracic, or paralumbar tenderness to palpation. Full active range of motion. Extremity: COMMON NORMALS: normal to inspection, full ROM and no joint enlargement Neuro: COMMON NORMALS: patient oriented x3, moves all extremities, no focal motor deficits, no sensory deficits noted, deep tendon reflexes 2+ bilaterally and gait normal SENSORIUM/ORIENTATION: Yes alert OTHER: L3, L4, L5, and S1 nerve sensations intact. Normal knee jerk and ankle jerk reflexes. Skin: COMMON NORMALS: no rashes or lesions noted GENERAL SKIN EXAM: no rashes or lesions noted Course Vital Signs: Vital signs: Vital Signs Temperature 98.7 F 05/29/24 18:23 Pulse Rate 113 H 05/29/24 18:23 Respiratory Rate 12 05/29/24 18:23 Blood Pressure 125/104 05/29/24 19:04 Pulse Oximetry 96 05/29/24 18:23 MDM - Back Pain/Injury Medical Decision Making Patient presenting with chronic low back pain, she has been having issues for greater than 4 years. History of decompression surgery. No red flag symptoms on history or exam. Notes improvement after Toradol here, she is currently on p.o. steroids for an upper respiratory infection. She was also given shot of Norflex here. She already takes tramadol. Ultimately told her to follow-up with her Ortho/spine surgeon, states that she can get into see them this week. No reason for imaging with the lack of physical exam findings or recent trauma. With her having improvement we will treat with Toradol at home and have her continue the tramadol and return with any new or worsening. She agrees with this plan and verbalizes understanding to return precautions. No radiology studies performed this visit Discharge Plan Discharge Patient Disposition: Home Clinical Impression: Chronic low back pain Qualifiers: Back pain laterality: midline Sciatica presence: without sciatica Qualified Code(s): M54.50 - Low back pain, unspecified Condition: Stable Prescriptions: New ketorolac 10 mg tablet 10 mg PO Q8H PRN (Reason: pain) Qty: 15 0RF No Action aripiprazole 5 mg tablet 5 mg PO DAILY Qty: 90 0RF nitrofurantoin monohyd/m-cryst [Macrobid] 100 mg capsule 100 mg PO BID 7 Days Qty: 14 0RF Rx Instructions: must administer with a meal/food bupropion HCl 300 mg tablet extended release 24 hr 300 mg PO QAM Qty: 90 0RF solifenacin [Vesicare] 10 mg tablet 10 mg PO DAILY Qty: 30 3RF ondansetron 8 mg tablet,disintegrating 8 mg PO Q8H PRN (Reason: nausea and vomiting) Qty: 14 0RF pregabalin 200 mg capsule 200 mg PO TID Qty: 90 0RF acetaminophen 325 mg Tablet 650 mg PO QID PRN (Reason: Pain) tramadol 50 mg tablet 50 - 100 mg PO Q6H PRN (Reason: Pain) Discharge Orders: Discharge ED (Routine); Ordered 05/29/24 Ordered By: Junior Godfrey Referrals: Jesus Jorgensen MD [Primary Care Provider] - Patient Instructions: Low Back Strain (ED), Back Pain (ED), Lower Back Exercises (ED) Activity Restrictions/Additional Instructions: Take the Toradol as prescribed. Continue taking your tramadol. Please follow- up with your Ortho/spine doctor as planned. Continue using heat and range of motion exercises as tolerated. Return with any bowel or bladder incontinence, fevers, or other concerning symptoms. Please see the attached patient instructions for further education. Print Language: Persian Coding Level of Care Code ED Clerical Grader for Jayla Zheng
[2024-05-29] MEDS: orphenadrine 30 mg/mL Inj 2 mL 60 MG IM (19:19)
[2024-05-29] MEDS: ketorolac 60 mg/2 mL INJ IM (19:23)
[2024-05-29 20:24] VITALS: BP 107/72; PULSE 97; O2SAT 94
== END 2024-05-29 20:25 | disposition home or self-care (01) ==
PROVIDERS: Emergency Provider Physician Assistant; PCP Internal Medicine
DX: M54.50 Low back pain, unspecified (principal)
CPT/HCPCS: 96372; 99284; J1885; J2360

== ENCOUNTER 2025-01-04 17:12 | Emergency (ER) | payer OTHER, SELFPAY ==
--- OUTSIDE RECORDS SUMMARY | 2024-01-29 04:00 | XMS_ITS ---
Author Organization [facility] Address [address] [place] [address] Care Team Providers Care Heat And Vent Aircraft Mechanic Name Role Phone Gulshan Jorgensen Primary Care Provider [phone] Migration, Provider Unavailable Unavailable Allergies Allergen (clinical drug ingredient) Drug/Non Drug Allergy documented on EMR Reaction Allergy Type Onset Date Status Penicillin anaphylaxis Drug Allergy Acti ve REASON FOR VISIT EMR-Octavio Encounters Encounter Location Date Provider Diagnosis Migrated_Facility 0 0 01/29/2024 Provider Migration Plan Of Treatment Next Appt Details Provider Name:Gulshan Jorgensen, 01/07/2025 10:00:00 AM, [address] [place] [address], [phone], Provider Name:Gulshan Jorgensen, 04/25/2025 10:00:00 AM, [address] [place] [address], [phone], Progress Notes * JOSH QUIÑONES DDOB:1980 (44 yo F)Acc No.[id number]:01/29/2024 Patient: Hollis LEGGETT JOSH Kaplan :1980 A ge:43 Y S ex:Female Address:[address] [address] Subjective: * Chief Complaints: * E MR-Octavio * Allergies: P enicillin: anaphylaxis - Allergy - Criticality High * * Date:
[2025-01-04] VITALS (7 sets, daily range): BP systolic 128–148; BP diastolic 74–85; PULSE 87–121; RESP 18–27; TEMP 37.4; O2SAT 67–98
--- OUTSIDE RECORDS SUMMARY | 2025-01-04 17:17 | XMS_ITS | Patient Health Record ---
Author Organization [facility] Address [address] [place] [address] Care Team Providers Care Smash Piecer Name Role Phone Gulshan Jorgensen Primary Care Provider Migration, Provider Unavailable Unavailable Allergies Allergen (clinical drug ingredient) Drug/Non Drug Allergy documented on EMR Reaction Allergy Type Onset Date Status Penicillin anaphylaxis Drug Allergy Acti ve Results Component Value Reference Range Notes UA Dip / Urinalysis, Routine , Manual - [id number] Reviewed date:09/25/2024 10:18:31 AM Interpretation: Performing Lab: Notes/Report: Color Yellow Clarity Clear Glucose - Bilirubin - Ketones - Specific [place] 1.0052 Blood - pH 7.5 Protein Trace Urobilinogen,Semi-Qn 0.2 Nitrite, Urine - Leukocytes - Reason For Referral No Information Medications Medication SIG (Take, Route, Frequency, Duration) Notes Start Date End Date Status lamoTRIgine 25 MG Tablet 1 tablet Orally daily Active oxyBUTYnin Chloride ER 15 MG Tablet Extended Release 24 Hour 1 tablet Orally Once a day Not-Taking Solifenacin Succinate 10 MG Tablet 1 tablet Orally Once a day; Duration: 90 days 01/02/2024 Active Lidocaine 0.5 % Gel 1 application as needed Externally Three times a day; Duration: 30 days 03/05/2024 Not-Taking Caplyta 21 MG Capsule 1 capsules Orally Once a day 10/23/2024 Active Abilify 2 MG Tablet 1 tablet Orally Once a day; Duration: 90 days Not-Takin g Magnesium 300 MG Capsule 1 capsule with a meal Orally Once a day Active buPROPion HCl ER (XL) 150 MG Tablet Extended Release 24 Hour 1 tablet in the morning Orally Once a day; Duration: 90 days 07/09/2024 Active Bactrim 400-80 MG Tablet 1 tablet Orally BID Not-Taking Buprenorphine HCl-Naloxone HCl 2-0.5 MG Tablet Sublingual 1 tab Sublingual tid; Duration: 30 days 10/23/2024 04/21/2025 Active Ativan 0.5 MG Tablet 1 tab prior to MRI Orally Ut dictum; Duration: 5 days 07/21/2022 Not-Taking Elbow Brace - Miscellaneous as directed; Duration: 30 days 03/05/2024 Active ZyPREXA 5 MG Tablet 1 tablet Orally Once a day Not-Taking Vilazodone HCl 40 MG Tablet TAKE 1 TABLET BY MOUTH EVERY DAY WITH FOOD Orally Once a day; Duration: 90 days Not-Taking Lyrica 200 MG Capsule 1 capsule Orally t hree times a DAY; Duration: 30 days 11/21/2024 03/19/2025 Active Social History Tobacco Use: Social History Observation Description Date Details (start date - stop date) Current Smoker NA - NA Social History Depression Screening Social Info Question Answer Notes depression screening findings Findings Positive (9+ without suicidality) 07/09/24 PHQ-9 Little interest or pleasure in doing things Nearly every day Feeling down, depressed, or hopeless More than h detention the days Trouble falling or staying a sleep, or sleeping too much Not at all Feeling tired or having little energy More than half the days Poor appetite or overeating Nearly every day Feeling bad about yourself, or that you are a failure, or have let yourself or your family down More than half the days Trouble concentrating on thi ngs, such as reading the newspaper or watching television More than half the days Moving or speaking so slowly that other people could have noticed. Or the opposite ? being so fidgety or restless that you have been moving around a lot more than usual Nearly every day Thoughts that you would be b wes off , or of hurting yourself in some way Not at all Total Score 17 Interpretation Moderately severe depression Drugs/Alcohol: Social Info Question Answer Notes Alcohol Screen (Audit-C) Did you have a drink containing alcohol in the past year? No Points 0 Interpretation Negative Drugs Have you used drugs other than those for medical reasons in the past 12 months? No Comprehensive Health Assessm ent Social Info Question Answer Notes *Social Determinants of Health Has lack of transportation kept you from medical appointments, meetings, work or from getting things needed for daily living? No Recently, have you worried t hat your food would run out before you got money to buy more? No Do you feel physically and emotionally safe wher e you currently live? Yes Are you worried about losing your housing? No Have you recently been dar rned that your utilities would be turned off (electricity, gas, or water)? No Tobacco Use: Social Info Question Answer Notes Tobacco Control (Standard) Tobacco use: Current smoker How often do you smoke cigarettes? Every day How many cigarettes a day do you smoke? 11-20 Section Notes: Completed 12/21 Completed 12/21 Completed 12/21 Completed 12/21 CIME Dep/tob - 07/09/24 Completed 12/21 CIME Dep/tob - 07/09/24 Completed 12/21 CIME Dep/tob - 07/09/24 Problems Problem Type SNOMED Code ICD Code Onset Dates Problem Status W/U Status Risk Notes Problem Spinal stenosis of lumbar region (88931969) Spinal stenosis at L4-L5 level (M48.061) Active confirmed Problem Tobacco abuse (4297582329) Tobacco abuse (Z72.0) Active confirmed Problem Moderate recurrent major depression (70590713) Moderate episode of recurrent major depressive disorder (F33.1) Active confirmed Problem Pyelonephritis (98903826) Pyelonephritis (N12) Active confirmed Problem Lumbar radiculopathy (084419943) Lumbar back pain with radiculopathy affecting left lower extremity (M54.16) Active confirmed Problem Left tennis elbow (447929336541858) Left tennis elbow (M77.12) Active confirmed Vital Signs Heart Rate 93 /min 10/23/2024 Temperature 97.9 degrees Fahrenheit 10/23/2024 Height-cm 157.48 cm 10/23/2024 Oximetry 94 % 10/23/2024 Blood pressure diastolic 80 mm Hg 10/23/2024 Weight-kg 51.26 kg 10/23/2024 Height 62 in 10/23/2024 Blood pressure systolic 125 mm Hg 10/23/2024 Weight 113 lbs 10/23/2024 BMI 20.67 kg/m2 10/23/2024 Encounters Encounter Location Date Provider Diagnosis [facility] [address] [place] [id number] 03/05/2024 Gulshan Jorgensen Left tennis elbow M77.12 ; Lumbar back pain with radiculopathy affecting left lower extremity M54.16 ; Moderate episode of recurrent major depressive disorder F33.1 ; Cigarette smoker F17.210 ; Body mass index [BMI] 20.0-20.9, adult Z68.20 ; Depression screen Z13.31 and Tobacco abuse Z72.0 [facility] [address] [address] 07/09/2024 Gulshan Jorgensen Moderate episode of recurrent major depressive disorder F33.1 ; Lumbar back pain with radiculopathy affecting left lower extremity M54.16 and Depression screen Z13.31 [facility] [address] [address] 09/25/2024 Gulshan Jorgensen UTI symptoms R39.9 ; Lumbar back pain with radiculopathy affecting left lower extremity M54.16 and Depression screen Z13.31 [facility] [address] [address] 10/23/2024 Gulshan Jorgensen Lumbar back pain wit h radiculopathy affecting left lower extremity M54.16 Migrated[facility]Facility 0 0 01/28/2024 Provider Migration Migrated[facility]Facility 0 0 01/29/2024 Provider Migration [facility] [address] [address] 03/05/2024 Gulshan Jorgensen Lumbar back pain wit h radiculopathy affecting left lower extremity M54.16 [facility] [address] [address] 03/19/2024 Gulshan Jorgensen [facility] [address] [address] 07/18/2024 Gulshan Jorgensen [facility] [address] [address] 11/19/2024 Gulshan Jorgensen [facility] [address] [address] 11/19/2024 Gulshan Jorgensen [facility] [address] [address] 12/04/2024 Gulshan Jorgensen Dysuria R30.0 Assessments Encounter Date Diagnosis (ICD Code) Assessment Notes Treatment Notes Treatment Clinical Notes Section Notes 03/05/2024 Lumbar back pain with radiculopathy affecting left lower extremity (ICD-10 - M54.16) 03/05/2024 Left tennis elbow (ICD-10 - M77.12) 07/09/2024 Moderate episode of recurrent major depressive disorder (ICD-10 - F33.1) 09/25/2024 Lumbar back pain with radiculopathy affecting left lower extremity (ICD-10 - M54.16) 10/23/2024 Lumbar back pain with radiculopathy affecting left lower extremity (ICD-10 - M54.16) 12/04/2024 Dysuria (ICD-10 - R30.0) 03/05/2024 Lumbar back pain with radiculopathy affecting left lower extremity (ICD-10 - M54.16) 09/25/2024 UTI symptoms (ICD-10 - R39.9) 09/25/2024 Depression screen (ICD-10 - Z13.31) 07/09/2024 Lumbar back pain with radiculopathy affecting left lower extremity (ICD-10 - M54.16) 03/05/2024 Moderate episode of recurrent major depressive disorder (ICD-10 - F33.1) 03/05/2024 Cigarette smoker (ICD-10 - F17.210) 07/09/2024 Depression screen (ICD-10 - Z13.31) 03/05/2024 Body mass index [BMI] 20.0-20.9, adult (ICD-10 - Z68.20) 03/05/2024 Depression screen (ICD-10 - Z13.31) 03/05/2024 Tobacco abuse (ICD-10 - Z72.0) Plan Of Treatment Next Appt Details Provider Name:Gulshan Jorgensen, 01/07/2025 10:00:00 AM, [address], [phone], Provider Name:Gulshan Jorgensen, 04/25/2025 10:00:00 AM, [address], [place], [address], Insurance Providers Payer Name Payer Address Payer Phone Subscriber Number Group Number Insured Name Patient Relationship to Insured Coverage Start Date Coverage End Date Amandeep BILLS [address] [place] [phone] [id number] JOSH QUIÑONES Self - patient is the insured Medications Administered Medication Instructions Date of Administration Dosage Notes BUPivacaine HCl 09/20/2023 1 mL BUPivacaine HCl 12/22/2023 1 mL DEPO-Medrol 09/20/2023 80 mg DEPO-Medrol 12/22/2023 80 mg Rocephin 10/19/2023 1 g Medical (General) History Medical History History ICD Code nerve damage to left foot lower back pain bipolar disorder Surgical History Surgery Date(Month/Year) back surgery carpal tunnel surgery intestinal surgery tonsilectomy hysterectomy partial
--- NOTE | 2025-01-04 17:22 | XRR_ITS ---
PROCEDURE INFORMATION: Exam: XR Chest Exam date and time: 01/04/2025 5:27 PM Age: 44 years old Clinical indication: Shortness of breath; Additional info: SOB TECHNIQUE: Imaging protocol: Radiologic exam of the chest. Views: 1 view. COMPARISON: CR XR chest 1V portable [id number] 02/26/2023 3:23 PM FINDINGS: Lungs: No infiltrates. No suspicious masses or nodules. Pleural spaces: No pleural effusions or pneumothorax. Heart/Mediastinum: Heart size within normal limits. No pulmonary vascular congestion. Bones/joints: No significant osseous lesion. No fractures. XR/XR chest 1V portable [id number] IMPRESSION: No acute cardiopulmonary findings radiographically.
--- NOTE | 2025-01-04 17:30 | ED_ITS ---
Documented by User: GHADA Jaramillo 01/05/25 00:08 HPI - SOB/Dyspnea 2 General: Chief Complaint: Shortness of Breath/Dyspnea Stated Complaint: abn O2 level (checked at home) Time Seen by Provider: 01/04/25 17:24 History of Present Illness: HPI Narrative: Patient is 44-year-old female chronic pain contract, presents to the emergency room due to shortness of breath. This has been worsening over the last 1 week. She has association of a headache for the course of the week, then started having increasing shortness of breath mainly today. She states is severe. She has not had chest pain however does have chest tightness. She has a nonproductive cough. No fever. She is brought in by private vehicle and showed oxygen saturation of 67% in triage. She is currently on 3 L/min to maintain oxygen saturation greater 90%. Admits to upper respiratory symptoms. No sick contact. Not recently had pneumonia. She did establish care with new primary care this week, however did not mention her worsening shortness of breath. She is a smoker. Associated symptoms: Deny abdominal pain, chest pain, extremity pain, fever(s), lightheadedness or syncope Related Data Home Medications ?Medication ?Instructions ?Recorded ?Confirmed acetaminophen 325 mg tablet 650 mg PO QID PRN Pain 10/14/23 tramadol 50 mg tablet 50 - 100 mg PO Q6H PRN Pain 04/22/23 10/14/23 Previous Rx's ?Medication ?Instructions ?Recorded ondansetron 8 mg disintegrating 8 mg PO Q8H PRN nausea and 05/18/23 tablet vomiting #14 tabs bupropion HCl 300 mg 24 hr tablet, 300 mg PO QAM #90 t abs 08/11/23 extended release solifenacin 10 mg tablet (Vesicare) 10 mg PO DAILY #30 tabs 08/11/23 aripiprazole 5 mg tablet 5 mg PO DAILY #90 tabs 09/07 nitrofurantoin 100 mg PO BID 7 days #14 cap s 10/14/23 monohydrate/macrocrystals 100 mg capsule (Macrobid) pregabalin 200 mg capsule 200 mg PO TID #90 caps 12/01 ketorolac 10 mg tablet 10 mg PO Q8H PRN pain #15 ta bs 05/29/24 doxycycline hyclate 100 mg capsule 100 mg PO BID 10 da ys #20 caps 01/04/25 methylprednisolone 4 mg tablets in See Rx Instructions PO .COMPLEX 01/04/25 a dose pack (Medrol (Ascencion)) #21 ea Allergies Allergy/AdvReac Type Severity Reaction Status Date / Time Penicillins Allergy RASH/ ITCHY Verified 05/29/24 18:23 Review of Systems 2 General: Reports: 10 or more systems reviewed and unremarkable except in HPI and below Const: Reports: other (denies trauma); Denies: fever(s), change in weight or night sweats Card: Denies: chest pain, lightheadedness or syncope Resp: Reports: dyspnea, non-productive cough and wheezing GI: Denies: abdominal pain or fecal incontinence : Denies: urinary incontinence Musc: Reports: back pain; Denies: neck pain or extremity pain Skin/Breast: Denies: rash or skin pain Neuro: Denies: headache(s), weakness in extremities, sensory changes, lack of coordination, difficulty walking or involuntary movements PFSH ED 2 PFSH: Medical History (Updated 01/04/25 @ 19:57 by GHADA Jaramillo) Viral syndrome Joint pain Chronic steroid use Hepatitis C antibody positive in blood Immunization counseling High risk medication use Inflammatory arthritis Seasonal allergies Anxiety Opioid contract exists Long-term use of high-risk medication Chronic low back pain with left-sided sciatica MIREILLE (generalized anxiety disorder) Depression Surgical History H/O laminectomy History of tonsillectomy and adenoidectomy H/O: hysterectomy H/O carpal tunnel repair Family History Other CAD (coronary artery disease) Cancer Diabetes Family history of premature coronary artery disease Hyperlipidemia Hypertension Rheumatoid arthritis Stroke Denies family history of Lupus Chronic kidney disease (CKD) Lung disease Social History Smoking and tobacco/nicotine status: never used tobacco/nicotine Second hand smoke exposure: Yes Alcohol intake: never Substance/Drug Use: current Substance/Drug use frequency: few times a month Lives independently: Yes Household members: spouse Marital status: Current gender identity: Female Special juan needs: No Physical Exam 2 Const: COMMON NORMALS: no acute distress, patient oriented x3, no limitations, healthy appearing and alert HENMT: COMMON NORMALS: normocephalic and atraumatic HEAD & SCALP: n ormocephalic and atraumatic Neck/C-Spine: COMMON NORMALS: full ROM, no lymphadenopathy, supple and no meningeal signs Lymph: LYMPHATIC: no lymphadenopathy noted Chest: COMMONS NORMALS: normal inspection of the chest and normal palpation of entire chest wall Resp: COMMON NORMALS: normal respiratory effort EFFORT & INSPECTION: No able to speak in complete sentences (Conversational dyspnea), Yes tachypneic (Minimal), No pursed lip breathing and Yes labored (Mild) AUSCULTATION: rales (Posterior bases) and wheezes (Scattered) Cardio: COMMON NORMALS: regular rate, regular rhythm, S1 normal heart sound present and S2 normal heart sound present RATE: regular rate RHYTHM: r egular rhythm HEART SOUNDS: S1 normal heart sound present and S2 normal heart sound present GI: COMMON NORMALS: Normal to inspection, nondistended, normoactive bowel sounds present, Soft to palpation, non-tender and No hepatosplenomegaly present PALPATION: Yes Soft to palpation and Yes No hepatosplenomegaly present Extremity: COMMON NORMALS: normal to inspection, full ROM and no joint enlargement Neuro: COMMON NORMALS: patient oriented x3, moves all extremities, no focal motor deficits, no sensory deficits noted, deep tendon reflexes 2+ bilaterally and gait normal SENSORIUM/ORIENTATION: Yes alert MENINGEAL SIGNS: Yes no meningeal signs OTHER: L3, L4, L5, and S1 nerve sensations intact. Normal knee jerk and ankle jerk reflexes. Skin: COMMON NORMALS: no rashes or lesions noted GENERAL SKIN EXAM: no rashes or lesions noted Course 2 Vital Signs: Vital signs: Vital Signs Temperature 99.4 F 01/04/25 17:24 Pulse Rate 105 H 01/04/25 20:15 Respiratory Rate 22 H 01/04/25 18:47 Blood Pressure 136/79 01/04/25 20:15 Pulse Oximetry 95 01/04/25 20:15 Oxygen Delivery Me thod Nasal Cannula 01/04/25 18:35 Oxygen Flow Rate 7 01/04/25 18:35 MDM - SOB/Dyspnea Medical Decision Making Patient is 44-year-old female that presented with increasing shortness of breath over the course last 1 week. On workup, she did not have an elevation of her procalcitonin, however she had tree-in-bud density noted on CT, as well as lymphadenopathy. I did go forward with treating her for pneumonia, and COPD exacerbation, as well as associated with her acute respiratory failure associated with hypoxia. Hypoxia was corrected with oxygen added. Unfortunately, patient would not stay, and elected to leave AGAINST MEDICAL ADVICE. I was very concerned about this patient, and highly encouraged her to return to the ED if we can help her, and advised her directly that the concern is . Patient stated understanding and signed herself out. Her was present, and stated he knows how she is and cannot seem to help as well. Medical Records I reviewed the patient's medical records. Lab Data I reviewed the patient's lab results. 01/04/25 17:25 01/04/25 17:25 Labs/Radiology: Radiology Impressions Chest X-Ray 01/04/25 17:22 IMPRESSION: No acute cardiopulmonary findings radiographically. Chest CTA 01/04/25 18:31 IMPRESSION: 1. No evidence of pulmonary embolism. 2. No evidence of aortic dissection. No aortic aneurysm. 3. Diffuse extensive tree-in-bud opacities throughout both lungs with multiple ground-glass nodular opacities in the right upper lobe. Findings most consistent diffuse extensive atypical pneumonia. Follow-up imaging recommended to ensure resolution. 4. Mild proximal peribronchial thickening in the right lung. Given aforementioned findings, favor infectious bronchiolitis. 5. Right hilar lymphadenopathy measuring 2.1 x 1.5 cm in the axial plane, likely reactive. However, follow-up chest CT scan to ensure resolution is recommended in 3-6 months. Laboratory Results WBC 16.53 10^3/uL (3.29-11.43) H 01/04/25 17: RBC 4.64 10^6/uL (3.85-5.65) 01/04/25 17: Hgb 13.10 g/dL (11.27-16.99) 01/04/25 17: Hct 40.5 % (36-47) 01/04/25 17:25 MCV 87.3 fl (85-98) 01/04/25 17: MCH 28.2 pg (27-33) 01/04/25 17: MCHC 32.3 g/dL (30-55) 01/04/25 17:25 RDW 13.7 % (12.1-15.1) 01/04/25 17:25 Plt Count 269 10^3/cmm (157-399) 01/04/25 17: MPV 10.1 fL (7.4-10.4) 01/04/25 17:25 Neut % (Auto) 84.8 % 01/04/25 17: Lymph % (Auto) 7.3 % 01/04/25 17:25 [place] % (Auto) 6.9 % 01/04/25 17:25 Eos % (Auto) 0.1 % 01/04/25 17:25 Baso % (Auto) 0.5 % 01/04/25 17: Neut # (Auto) 14.03 10^3/uL (1.8-7.7) H 01/04/25 17:25 Lymph # (Auto) 1.2 10^3/uL (0.8-4.8) 01/04/25 17: [place] # (Auto) 1.1 10^3/uL (0.2-0.9) H 01/04/25 17:25 Eos # (Auto) 0.0 10^3/uL (0.0-0.8) 01/04/25 17:25 Baso # (Auto) 0.1 10^3/uL (0.0-0.1) 01/04/25 17:25 Nucleated RBC % (auto) 0 % 01/04/25 17: Nucleated RBCs # 0.0 /100WBC 01/04/25 17: PT 16.00 SECONDS (12.1-14.9) H 01/04/25 17:25 INR 1.20 (0.8-1.2) 01/04/25 17:25 D-Dimer 0.87 ug/mLFEU (0-0.59) H 01/04/25 17:25 Sodium 138 mmol/L (136-145) 01/04/25 17:25 Potassium 3.3 mmol/L (3.5-5.1) L 01/04/25 17:25 Chloride 95 mmol/L (98-107) L 01/04/25 17:25 Carbon Dioxide 28 mmol/L (22-29) 01/04/25 17:25 Anion Gap 18.3 (5-19) 01/04/25 17:25 BUN 6 mg/dL (6-20) 01/04/25 17:25 Creatinine 0.7 mg/dL (0.5-0.9) 01/04/25 17:25 GFR Calculation 90.5 mL/min (90-130) 01/04/25 17:25 Glucose 124 mg/dL (65-115) H 01/04/25 17:25 Calculated Osmolality 285 mOsm/kg (285-295) 01/04/25 17:25 Calcium 8.9 mg/dL (8.5-10.5) 01/04/25 17:25 Magnesium 2.0 mg/dL (1.7-2.3) 01/04/25 19:11 Total Bilirubin 0.4 mg/dL (0.15-1.2) 01/04/25 17:25 AST 14 U/L (0-32) 01/04/25 17:25 ALT 9 U/L (0-33) 01/04/25 17:25 Alkaline Phosphatase 123 U/L (35-105) H 01/04/25 17:25 Troponin T Baseline 12 ng/L (0-10) H 01/04/25 17:25 Troponin T 120 Minute 13.40 ng/L (0-10) H 01/04/25 19:11 Delta Troponin T 1.40 ABS# (0-10) 01/04/25 19:11 NT-Pro-B Natriuret Pep 626 pg/mL (0-125) H 01/04/25 17:25 Total Protein 7.7 g/dL (6.6-8.7) 01/04/25 17:25 Albumin 3.9 g/dL (3.5-5.2) 01/04/25 17:25 Globulin 3.8 g/dL (1.3-4.6) 01/04/25 17:25 Procalcitonin 0.11 ng/mL (0-0.5) 01/04/25 17:23 TSH 0.77 uIU/mL (0.27-4.20) 01/04/25 19:11 Influenza A (PCR) Negative (Negative) 01/04/25 17:44 Influenza Type B (PCR) Negative (Negative) 01/04/25 17:44 RSV (PCR) Negative (Negative) 01/04/25 17:44 SARS-CoV-2 (PCR) Negative (Negative) 01/04/25 17:44 All radiology interpretation(s) finalized by discharge EKG Data EKG 1: Computer Generated Interpretation: Sinus tachycardia without ST segment elevation, QTc 332 EKG 2: Interpretation: Normal sinus rhythm, normal axis, no ST segment elevation Discharge Plan Discharge Patient Disposition: Left Against Medical Advice Clinical Impression: Acute exacerbation of chronic obstructive pulmonary disease, Acute and chronic respiratory failure with hypoxia Condition: Stable Prescriptions: New doxycycline hyclate 100 mg capsule 100 mg PO BID 10 Days Qty: 20 0RF methylprednisolone [Medrol (Ascencion)] 4 mg tablets,dose pack See Rx Instructions .ROUTE .COMPLEX Qty: 21 0RF Rx Instructions: for 6 days No Action aripiprazole 5 mg tablet 5 mg PO DAILY Qty: 90 0RF nitrofurantoin monohyd/m-cryst [Macrobid] 100 mg capsule 100 mg PO BID 7 Days Qty: 14 0RF Rx Instructions: must administer with a meal/food bupropion HCl 300 mg tablet extended release 24 hr 300 mg PO QAM Qty: 90 0RF solifenacin [Vesicare] 10 mg tablet 10 mg PO DAILY Qty: 30 3RF ondansetron 8 mg tablet,disintegrating 8 mg PO Q8H PRN (Reason: nausea and vomiting) Qty: 14 0RF pregabalin 200 mg capsule 200 mg PO TID Qty: 90 0RF acetaminophen 325 mg Tablet 650 mg PO QID PRN (Reason: Pain) tramadol 50 mg tablet 50 - 100 mg PO Q6H PRN (Reason: Pain) ketorolac 10 mg tablet 10 mg PO Q8H PRN (Reason: pain) Qty: 15 0RF Referrals: Jesus Jorgensen MD [Primary Care Provider, Internal Medicine] Discharge Diet: Usual diet Discharge Activity: Resume usual activity Print Language: Wolof Coding Level of Care Code ED K 9 Police Officer for Chg Fwd Documented by User: Tyler Briceño DO 01/05/25 00:09 HPI - SOB/Dyspnea 2 General: Chief Complaint: Shortness of Breath/Dyspnea Stated Complaint: abn O2 level (checked at home) Time Seen by Provider: 01/04/25 17:24 Related Data Home Medications ?Medication ?Instructions ?Recorded ?Confirmed acetaminophen 325 mg tablet 650 mg PO QID PRN Pain 10/14/23 tramadol 50 mg tablet 50 - 100 mg PO Q6H PRN Pain 04/22/23 10/14/23 Previous Rx's ?Medication ?Instructions ?Recorded ondansetron 8 mg disintegrating 8 mg PO Q8H PRN nausea and 05/18/23 tablet vomiting #14 tabs bupropion HCl 300 mg 24 hr tablet, 300 mg PO QAM #90 t abs 08/11/23 extended release solifenacin 10 mg tablet (Vesicare) 10 mg PO DAILY #30 tabs 08/11/23 aripiprazole 5 mg tablet 5 mg PO DAILY #90 tabs 09/07 nitrofurantoin 100 mg PO BID 7 days #14 cap s 10/14/23 monohydrate/macrocrystals 100 mg capsule (Macrobid) pregabalin 200 mg capsule 200 mg PO TID #90 caps 12/01 ketorolac 10 mg tablet 10 mg PO Q8H PRN pain #15 ta bs 05/29/24 doxycycline hyclate 100 mg capsule 100 mg PO BID 10 da ys #20 caps 01/04/25 methylprednisolone 4 mg tablets in See Rx Instructions PO .COMPLEX 01/04/25 a dose pack (Medrol (Ascencion)) #21 ea Allergies Allergy/AdvReac Type Severity Reaction Status Date / Time Penicillins Allergy RASH/ ITCHY Verified 05/29/24 18:23 [facility] ED 2 PFSH: Medical History (Updated 01/04/25 @ 19:57 by GHADA Jaramillo) Viral syndrome Joint pain Chronic steroid use Hepatitis C antibody positive in blood Immunization counseling High risk medication use Inflammatory arthritis Seasonal allergies Anxiety Opioid contract exists Long-term use of high-risk medication Chronic low back pain with left-sided sciatica MIREILLE (generalized anxiety disorder) Depression Surgical History H/O laminectomy History of tonsillectomy and adenoidectomy H/O: hysterectomy H/O carpal tunnel repair Family History Other CAD (coronary artery disease) Cancer Diabetes Family history of premature coronary artery disease Hyperlipidemia Hypertension Rheumatoid arthritis Stroke Denies family history of Lupus Chronic kidney disease (CKD) Lung disease Social History Smoking and tobacco/nicotine status: never used tobacco/nicotine Second hand smoke exposure: Yes Alcohol intake: never Substance/Drug Use: current Substance/Drug use frequency: few times a month Lives independently: Yes Household members: spouse Marital status: Current gender identity: Female Special juan needs: No Course 2 Vital Signs: Vital signs: Vital Signs Temperature 99.4 F 01/04/25 17:24 Pulse Rate 105 H 01/04/25 20:15 Respiratory Rate 22 H 01/04/25 18:47 Blood Pressure 136/79 01/04/25 20:15 Pulse Oximetry 95 01/04/25 20:15 Oxygen Delivery Me thod Nasal Cannula 01/04/25 18:35 Oxygen Flow Rate 7 01/04/25 18:35 MDM - SOB/Dyspnea Medical Decision Making Patient is 44-year-old female that presented with increasing shortness of breath over the course last 1 week. On workup, she did not have an elevation of her procalcitonin, however she had tree-in-bud density noted on CT, as well as lymphadenopathy. I did go forward with treating her for pneumonia, and COPD exacerbation, as well as associated with her acute respiratory failure associated with hypoxia. Hypoxia was corrected with oxygen added. Unfortunately, patient would not stay, and elected to leave AGAINST MEDICAL ADVICE. I was very concerned about this patient, and highly encouraged her to return to the ED if we can help her, and advised her directly that the concern is . Patient stated understanding and signed herself out. Her was present, and stated he knows how she is and cannot seem to help as well. Patient was originally seen by Ms. Paulina PA-C. I agree with her history, evaluation, and management. Lab Data 01/04/25 17:25 01/04/25 17:25 Labs/Radiology: Radiology Impressions Chest X-Ray 01/04/25 17:22 IMPRESSION: No acute cardiopulmonary findings radiographically. Chest CTA 01/04/25 18:31 IMPRESSION: 1. No evidence of pulmonary embolism. 2. No evidence of aortic dissection. No aortic aneurysm. 3. Diffuse extensive tree-in-bud opacities throughout both lungs with multiple ground-glass nodular opacities in the right upper lobe. Findings most consistent diffuse extensive atypical pneumonia. Follow-up imaging recommended to ensure resolution. 4. Mild proximal peribronchial thickening in the right lung. Given aforementioned findings, favor infectious bronchiolitis. 5. Right hilar lymphadenopathy measuring 2.1 x 1.5 cm in the axial plane, likely reactive. However, follow-up chest CT scan to ensure resolution is recommended in 3-6 months. Laboratory Results WBC 16.53 10^3/uL (3.29-11.43) H 01/04/25 17: RBC 4.64 10^6/uL (3.85-5.65) 01/04/25 17: Hgb 13.10 g/dL (11.27-16.99) 01/04/25 17: Hct 40.5 % (36-47) 01/04/25 17:25 MCV 87.3 fl (85-98) 01/04/25 17:25 MCH 28.2 pg (27-33) 01/04/25 17: MCHC 32.3 g/dL (30-55) 01/04/25 17: RDW 13.7 % (12.1-15.1) 01/04/25 17: Plt Count 269 10^3/cmm (157-399) 01/04/25 17: MPV 10.1 fL (7.4-10.4) 01/04/25 17:25 Neut % (Auto) 84.8 % 01/04/25 17: Lymph % (Auto) 7.3 % 01/04/25 17: [place] % (Auto) 6.9 % 01/04/25 17: Eos % (Auto) 0.1 % 01/04/25 17: Baso % (Auto) 0.5 % 01/04/25 17: Neut # (Auto) 14.03 10^3/uL (1.8-7.7) H 01/04/25 17:25 Lymph # (Auto) 1.2 10^3/uL (0.8-4.8) 01/04/25 17:25 [place] # (Auto) 1.1 10^3/uL (0.2-0.9) H 01/04/25 17:25 Eos # (Auto) 0.0 10^3/uL (0.0-0.8) 01/04/25 17:25 Baso # (Auto) 0.1 10^3/uL (0.0-0.1) 01/04/25 17:25 Nucleated RBC % (auto) 0 % 01/04/25 17:25 Nucleated RBCs # 0.0 /100WBC 01/04/25 17:25 PT 16.00 SECONDS (12.1-14.9) H 01/04/25 17:25 INR 1.20 (0.8-1.2) 01/04/25 17:25 D-Dimer 0.87 ug/mLFEU (0-0.59) H 01/04/25 17:25 Sodium 138 mmol/L (136-145) 01/04/25 17:25 Potassium 3.3 mmol/L (3.5-5.1) L 01/04/25 17:25 Chloride 95 mmol/L (98-107) L 01/04/25 17:25 Carbon Dioxide 28 mmol/L (22-29) 01/04/25 17:25 Anion Gap 18.3 (5-19) 01/04/25 17:25 BUN 6 mg/dL (6-20) 01/04/25 17:25 Creatinine 0.7 mg/dL (0.5-0.9) 01/04/25 17:25 GFR Calculation 90.5 mL/min (90-130) 01/04/25 17:25 Glucose 124 mg/dL (65-115) H 01/04/25 17:25 Calculated Osmolality 285 mOsm/kg (285-295) 01/04/25 17:25 Calcium 8.9 mg/dL (8.5-10.5) 01/04/25 17:25 Magnesium 2.0 mg/dL (1.7-2.3) 01/04/25 19:11 Total Bilirubin 0.4 mg/dL (0.15-1.2) 01/04/25 17:25 AST 14 U/L (0-32) 10/03/25 17:25 ALT 9 U/L (0-33) 01/04/25 17:25 Alkaline Phosphatase 123 U/L (35-105) H 01/04/25 17:25 Troponin T Baseline 12 ng/L (0-10) H 01/04/25 17:25 Troponin T 120 Minute 13.40 ng/L (0-10) H 01/04/25 19:11 Delta Troponin T 1.40 ABS# (0-10) 01/04/25 19:11 NT-Pro-B Natriuret Pep 626 pg/mL (0-125) H 01/04/25 17:25 Total Protein 7.7 g/dL (6.6-8.7) 01/04/25 17:25 Albumin 3.9 g/dL (3.5-5.2) 01/04/25 17:25 Globulin 3.8 g/dL (1.3-4.6) 01/04/25 17:25 Procalcitonin 0.11 ng/mL (0-0.5) 01/04/25 17:23 TSH 0.77 uIU/mL (0.27-4.20) 01/04/25 19:11 Influenza A (PCR) Negative (Negative) 01/04/25 17:44 Influenza Type B (PCR) Negative (Negative) 01/04/25 17:44 RSV (PCR) Negative (Negative) 01/04/25 17:44 SARS-CoV-2 (PCR) Negative (Negative) 01/04/25 17:44 Discharge Plan Discharge Patient Disposition: Left Against Medical Advice Clinical Impression: Acute exacerbation of chronic obstructive pulmonary disease, Acute and chronic respiratory failure with hypoxia Condition: Stable Prescriptions: New doxycycline hyclate 100 mg capsule 100 mg PO BID 10 Days Qty: 20 0RF methylprednisolone [Medrol (Ascencion)] 4 mg tablets,dose pack See Rx Instructions .ROUTE .COMPLEX Qty: 21 0RF Rx Instructions: for 6 days No Action aripiprazole 5 mg tablet 5 mg PO DAILY Qty: 90 0RF nitrofurantoin monohyd/m-cryst [Macrobid] 100 mg capsule 100 mg PO BID 7 Days Qty: 14 0RF Rx Instructions: must administer with a meal/food bupropion HCl 300 mg tablet extended release 24 hr 300 mg PO QAM Qty: 90 0RF solifenacin [Vesicare] 10 mg tablet 10 mg PO DAILY Qty: 30 3RF ondansetron 8 mg tablet,disintegrating 8 mg PO Q8H PRN (Reason: nausea and vomiting) Qty: 14 0RF pregabalin 200 mg capsule 200 mg PO TID Qty: 90 0RF acetaminophen 325 mg Tablet 650 mg PO QID PRN (Reason: Pain) tramadol 50 mg tablet 50 - 100 mg PO Q6H PRN (Reason: Pain) ketorolac 10 mg tablet 10 mg PO Q8H PRN (Reason: pain) Qty: 15 0RF Referrals: Jesus Jorgensen MD [Primary Care Provider, Internal Medicine] Discharge Diet: Usual diet Discharge Activity: Resume usual activity Print Language: Wolof Coding Level of Care Code ED K 9 Police Officer for Jayla Zheng
[2025-01-04 17:35] LABS: Hematocrit 40.5 % (36-47); Hemoglobin 13.10 g/dL (11.27-16.99); Mean Corpuscular HGB Conc 32.3 g/dL (30-55); Mean Corpuscular Hemoglobin 28.2 pg (27-33); Mean Corpuscular Volume 87.3 fl (85-98); Nucleated Red Blood Cells % 0 %; Platelet Count 269 10^3/cmm (157-399); Red Blood Count 4.64 10^6/uL (3.85-5.65); White Blood Count 16.53 10^3/uL (3.29-11.43)
[2025-01-04 17:42] LABS: INR 1.20 (0.8-1.2); Prothrombin Time 16.00 SECONDS (12.1-14.9)
[2025-01-04 17:53] LABS: Troponin(5th) Baseline 12 ng/L (0-10)
[2025-01-04 18:08] LABS: Alanine Aminotransferase 9 U/L (0-33); Albumin Level 3.9 g/dL (3.5-5.2); Alkaline Phosphatase 123 U/L (35-105); Anion Gap 18.3 (5-19); Aspartate Amino Transferase 14 U/L (0-32); Blood Urea Nitrogen 6 mg/dL (6-20); Calcium 8.9 mg/dL (8.5-10.5); Carbon Dioxide 28 mmol/L (22-29); Chloride 95 mmol/L (98-107); Creatinine Clr Calc Pharmacy 81.3941; Globulin 3.8 g/dL (1.3-4.6); Glucose 124 mg/dL (65-115); NT Pro B Type Natriuretic Pept 626 pg/mL (0-125); Osmolality Calculated 285 mOsm/kg (285-295); Potassium 3.3 mmol/L (3.5-5.1); Sodium 138 mmol/L (136-145); Total Protein 7.7 g/dL (6.6-8.7)
[2025-01-04 18:30] LABS: Respiratory Syncytial Virus Ce NEGATIVE (Negative); SARS-CoV-2 PCR NEGATIVE (Negative)
--- NOTE | 2025-01-04 18:31 | CTR_ITS ---
PROCEDURE INFORMATION: Exam: CTA Chest With Contrast Exam date and time: 01/04/2025 6:56 PM Age: 44 years old Clinical indication: Abnormal findings; Abnormal diagnostic tests; Elevated d-dimer; Shortness of breath; SOB with hypoxia. Dimer 0.87; Additional info: Hypoxia, elevated d dimer TECHNIQUE: Imaging protocol: Computed tomographic angiography of the chest with contrast. Exam focused on the arteries. 3D rendering (Not supervised by radiologist): MIP and/or 3D reconstructed images were created by the technologist. Radiation optimization: All CT scans at this facility use at least one of these dose optimization techniques: automated exposure control; mA and/or kV adjustment per patient size (includes targeted exams where dose is matched to clinical indication); or iterative reconstruction. Contrast material: OMNI 350; Contrast volume: 80 ml; Contrast route: INTRAVENOUS (IV); COMPARISON: CT chest w con* [id number] 02/10/2023 12:59 PM RADIATION DOSE METRICS: Total DLP (mGy-cm): 206.2 FINDINGS: Pulmonary arteries: No evidence of pulmonary embolism. Aorta: No evidence of aortic dissection. No aortic aneurysm. Lungs: Diffuse extensive tree-in-bud opacities throughout both lungs with multiple ground-glass nodular in the right upper lobe. Mild proximal peribronchial thickening in the right lung. No lobar consolidation. Pleural spaces: No pleural effusion. Heart: Heart size within normal limits. No pericardial effusions. Coronary arteries: No significant coronary artery calcifications. Lymph nodes: Right hilar lymphadenopathy measuring 2.1 x 1.5 cm in axial plane, likely reactive. Liver: Scattered calcified granulomas in the liver and spleen consistent with sequelae of granulomatous disease. Bones/joints: Unremarkable. No acute fracture. Soft tissues: Unremarkable. CT/CT angio chest PE protcl [id number] IMPRESSION: 1. No evidence of pulmonary embolism. 2. No evidence of aortic dissection. No aortic aneurysm. 3. Diffuse extensive tree-in-bud opacities throughout both lungs with multiple ground-glass nodular opacities in the right upper lobe. Findings most consistent diffuse extensive atypical pneumonia. Follow-up imaging recommended to ensure resolution. 4. Mild proximal peribronchial thickening in the right lung. Given aforementioned findings, favor infectious bronchiolitis. 5. Right hilar lymphadenopathy measuring 2.1 x 1.5 cm in the axial plane, likely reactive. However, follow-up chest CT scan to ensure resolution is recommended in 3-6 months.
[2025-01-04] MEDS: methylPREDNISolone sod succ 125 mg/2 mL INJ 80 MG IVP (18:33)
[2025-01-04] MEDS: iohexol 350 mg/mL 500 mL Btl (per mL) IV (18:58)
--- NOTE | 2025-01-04 19:03 | ECG_ITS ---
[facility] Test Date: 2025-01-04 Pat Name: Eli Arguello Department: Room: Gender: Female [employer]her Feeder: : 1980 Requested By: Seema Moran Order Number: [id number] Talon MD: Catie Tanner M.D. Measurements Intervals [place] Rate: 105 P: 76 MI: 138 QRS: 80 QRSD: 87 T: 44 QT: 285 QTc: 377 Interpretive Statements SINUS TACHYCARDIA POSSIBLE RIGHT VENTRICULAR CONDUCTION DELAY [RSR (QR) IN V1/V2] NONSPECIFIC T-WAVE ABNORMALITY ABNORMAL RHYTHM ECG Compared to ECG 02/26/2023 17:23:14 T-wave abnormality now present Sinus rhythm no longer present Electronically Signed On 01-05-2025 14:28:19 CDT by Catie Tanner M.D. [email or web address]
[2025-01-04 19:11] LABS: Procalcitonin 0.11 ng/mL (0-0.5)
[2025-01-04 19:44] LABS: Troponin 5 2HR 13.40 ng/L (0-10); Troponin 5 2HR Delta 1.40 ABS# (0-10)
[2025-01-04] MEDS: cefTRIAXone 2,000 mg SDV 2000 MG IVP (19:58)
--- NOTE | 2025-01-04 20:09 | PC.NURSE ---
Upon provider Paulina URRUTIA attempting to inform patient that patient needs to be admitted, patient firmly stated No, I will not stay in the hospital. I am going home. Paulina as well as primary nurse educated patient regarding the importance of being admitted for antibiotic and oxygen therapy. Patient repeatedly stated that she would not stay. AMA form was signed. Patient and spouse educated to monitor symptoms and return to the emergency room for signs of hypoxia, confusion, or high fever. Family and patient verbalized understanding.
[2025-01-04 20:27] LABS: Magnesium 2.0 mg/dL (1.7-2.3); Thyroid Stimulating Hormone 0.77 uIU/mL (0.27-4.20)
--- NOTE | 2025-01-05 06:09 | P.HP_ITS ---
Providers/Chief Complaint 2 Admitting Physician: James Miramontes MD Primary Care Provider: Jesus Jorgensen MD Chief Complaint: SOB History of Present Illness as per the previous notes and the patient: Eli Arguello is a 44 year old female with PMH of chronic pain, bipolar disorder, unintentional wt loss been over months with decreased appetite and joint pains, came to the ER with worsening sob associated with low degree fever, that has been ongoing from one week. The shortness of breath is increased with exertion as well at rest but no orthopnea or PND. He also reported mild lower leg swellings but not very obvious. No chest pressure or chest pain.. she has associated productive cough with mild kasey sputum. No family history of TB or previously treated TB. Patient does not have any pigeons or pets at home. And does not deal with farming. No recent travel, sick contacts. she is a smoker and smokes more than 1 to 2 packs/day since the age of 29 years. But never been diagnosed case of any lung diease before and has been following with her primary care doctor for working up for possible COPD? Review of Systems 2 General: Reports: 10 or more systems reviewed and unremarkable except in HPI and below Medications/Allergies Home Medications ?Medication ?Instructions ?Recorded ?Confirmed ?Last Taken ?Type acetaminophen 325 mg tablet 650 mg PO QID PRN Pain 01/05/25 04/21/23 History tramadol 50 mg tablet 50 - 100 mg PO Q6H PRN Pain 04/22/23 10/14/23 04/22/23 History ondansetron 8 mg disintegrating 8 mg PO Q8H PRN nausea and 05/18/23 10/14/23 Unknown Rx tablet vomiting #14 tabs solifenacin 10 mg tablet (Vesicare) 10 mg PO DAILY #30 tabs 08/11/23 01/05/25 01/05/25 06:00 Rx aripiprazole 5 mg tablet 5 mg PO DAILY #90 tabs 09/0710/14/23 Unknown Rx nitrofurantoin 100 mg PO BID 7 days #14 cap s 10/14/23 10/14/23 Unknown Rx monohydrate/macrocrystals 100 mg capsule (Macrobid) pregabalin 200 mg capsule 200 mg PO TID #90 caps 12/0101/05/25 01/05/25 06:00 Rx ketorolac 10 mg tablet 10 mg PO Q8H PRN pain #15 ta bs 05/29/24 Unknown Rx doxycycline hyclate 100 mg capsule 100 mg PO BID 10 da ys #20 caps 01/04/25 Unknown Rx methylprednisolone 4 mg tablets in See Rx Instructions PO .COMPLEX 01/04/25 Unknown Rx a dose pack (Medrol (Ascencion)) #21 ea buprenorphine 2 mg-naloxone 0.5 mg 1 tab sublingual TI D 01/05/25 01/05/25 01/05/25 06:00 History sublingual tablet bupropion HCl 300 mg 24 hr tablet, 150 mg PO QAM 01/0501/05/25 01/05/25 06:00 History extended release lamotrigine 25 mg tablet 2 - 25 mg PO DAILY 01/05/25 01/05/25 01/05/25 06:00 History lumateperone 21 mg capsule 21 mg PO DAILY 01/05/2507/2701/04/25 19:00 History (Caplyta) Allergies Allergy/AdvReac Type Severity Reaction Status Date / Time Penicillins Allergy RASH/ ITCHY Verified 05/29/24 18:23 PFSH Acute 2 PFSH: Medical History (Updated 01/05/25 @ 07:01 by James Miramontes MD) Viral syndrome Joint pain Chronic steroid use Hepatitis C antibody positive in blood Immunization counseling High risk medication use Inflammatory arthritis Seasonal allergies Anxiety Opioid contract exists Long-term use of high-risk medication Chronic low back pain with left-sided sciatica MIREILLE (generalized anxiety disorder) Depression Surgical History H/O laminectomy History of tonsillectomy and adenoidectomy H/O: hysterectomy H/O carpal tunnel repair Family History Other CAD (coronary artery disease) Cancer Diabetes Family history of premature coronary artery disease Hyperlipidemia Hypertension Rheumatoid arthritis Stroke Denies family history of Lupus Chronic kidney disease (CKD) Lung disease Social History Smoking and tobacco/nicotine status: never used tobacco/nicotine Second hand smoke exposure: Yes Alcohol intake: never Substance/Drug Use: current Substance/Drug use frequency: few times a month Lives independently: Yes Household members: spouse Marital status: Current gender identity: Female Special juan needs: No Vitals/I&O/Wt Last Vital Signs Temp 99.4 F 01/04/25 17:24 Pulse 105 H 01/04/25 20:15 Resp 22 H 01/04/25 18:47 BP 136/79 01/04/25 20:15 Pulse Ox 95 01/04/25 20:15 O2 Del Method Nasal Cannula 01/04/25 18:35 O2 Flow Rate 7 01/04/25 18:35 Weight last 48 hrs Weight 50.802 kg Physical Exam 2 Narrative: general: Alert and oriented, lying comfortably without any distress with oxygen through nasal cannula. Able to speak in full sentences HEENT: Normocephalic, atraumatic, grossly unremarkable exam Cardio: normal rate rhythm, normal S1-S2 without any murmurs, rubs, or gallops and JVD normal Respiratory: Equal air entry with inspiratory crepitations seems fine from bases to the mid zone no stridor or wheezes heart GI: Abdomen soft, nontender, nondistended, normoactive bowel sounds present all 4 quadrants, Neuro: intact cranial nerves motor and sensory and cerebellar/coordination function without any focal neurological deficit Behavior: Appropriate and cooperative Extremities: Adequate palpable pulses, no edema or cyanosis observed Skin: grossly unremarkable exam Data 01/04/25 17:25 01/04/25 17:25 Micro: Microbiology 01/04/25 19:45 Blood Culture - Preliminary Blood SPECIMEN COLLECTED 01/04/25 19:43 Blood Culture - Preliminary Blood SPECIMEN COLLECTED A&P Assessment and plan 1. Acute and chronic respiratory failure with hypoxia: - patient flu and covid panel is negative, to send for resp viral panel - CT chest showing diffuse tree and bud appearance, consider chronic lung conditions?, TB coccidio, blasto and histo ag to follow - TB QuantiFERON, sputum AFB 3 sets apart 8 hours - started on ceftriaxone and azithromycin and later to tailor antibiotics based on sputum culture - airborne isolation - oxygen therapy per protocol - monitor vitals 2. Weight loss, unintentional: - dietitian consult - TSH normal - could be chronic infection vs chronic comorbid illnesses jaylyn with depression? 3. GERD (gastroesophageal reflux disease): famotidine daily 4. Nicotine addiction: 21 mg nicotine patch 5. Inflammatory arthritis: Currently stable, no joint swellings Analgesics as needed 6. Lumbar radiculopathy: continue on pregabalin 200mg tid capusle, mentioned in the home medications and to reconcile analgesics as needed 7. Depression: to resume her home medications for depression after reconciliation 8. Anxiety: to resume her home medications for depression after reconciliation 9. High risk medication use: counseling provided adequately PDMP PDMP Reviewed: Not Reviewed Attestations 2 Medical Necessity Statement*: Eli Arguello's hospital stay will require greater than 2 midnights for management of acute hypoxemic resp failure Time Spent in Patient Care: 16 - 35 minutes (>than 50% of time sp ent in counselling and/or direct pt care on unit) . Other Attestations: Patient condition has been discussed at length with the patient/family, I have independently reviewed the chart labs imaging/diagnostics/EKG. the goals of care and code status with the patient/family/NOK/legal textile machinery sales representative, and documented accordingly. The patient/family has been informed about the current condition and further plan of care. Agreed with the plan of care and understood without any language barrier. Every effort was made to ensure accuracy of supply room clerk. Any obvious errors or omissions should be clarified with the author of the document. Coding Level of Care Code Acute Code for Chg Fwd Diagnoses Acute and chronic respiratory failure with hypoxia J96.21 Weight loss, unintentional R63.4 GERD (gastroesophageal reflux disease) K21.9 Nicotine addiction F17.200 Inflammatory arthritis M13.80 Lumbar radiculopathy M54.16 Depression F32.A Anxiety F41.9 High risk medication use Z79.899
== END 2025-01-04 20:17 | disposition left against medical advice (07) ==
PROVIDERS: Emergency Medicine; Emergency Provider Physician Assistant; PCP Internal Medicine
DX: J44.1 Chronic obstructive pulmonary disease with (acute) exacerbation (principal); J96.21 Acute and chronic respiratory failure with hypoxia; Z11.52 Encounter for screening for COVID-19
CPT/HCPCS: 36415; 71045; 71275; 80053; 83735; 83880; 84145; 84443; 84484; 85025; 85378; 85610; 87040; 87637; 93005; 94640; 96374; 96375; 99285; J0696; J2919; J9999

== ENCOUNTER 2025-01-05 04:25 | Inpatient (IN) | payer OTHER, SELFPAY ==
--- OUTSIDE RECORDS SUMMARY | 2024-01-29 04:00 | XMS_ITS ---
Author Organization [facility] Address [address] [place] [address] Care Team Providers Care Net C Developer Name Role Phone Gulshan Jorgensen Primary Care Provider Migration, Provider Unavailable Unavailable Allergies Allergen (clinical drug ingredient) Drug/Non Drug Allergy documented on EMR Reaction Allergy Type Onset Date Status Penicillin anaphylaxis Drug Allergy Acti ve REASON FOR VISIT EMR-Octavio Encounters Encounter Location Date Provider Diagnosis Migrated_Facility 0 0 01/29/2024 Provider Migration Plan Of Treatment Next Appt Details Provider Name:Gulshan Jorgensen, 01/07/2025 10:00:00 AM, [address] [place] [address], [phone], Provider Name:Gulshan Jorgensen, 04/25/2025 10:00:00 AM, [address] [place] [address], [phone], Progress Notes * JSOH QUIÑONES DDOB:1980 (44 yo F)Acc No.[id number]:01/29/2024 Patient: Hollis LEGGETT JOSH Kaplan :1980 A ge:43 Y S ex:Female Address:[address] [address] Subjective: * Chief Complaints: * E MR-Octavio * Allergies: P enicillin: anaphylaxis - Allergy - Criticality High * * Date:
[2025-01-05] VITALS (16 sets, daily range): BP systolic 116–136; BP diastolic 76–82; PULSE 70–98; RESP 16–21; TEMP 36.4–36.7; O2SAT 90–94; BMI 23.0
--- OUTSIDE RECORDS SUMMARY | 2025-01-05 04:32 | XMS_ITS | Patient Health Record ---
Author Organization [facility] Address [address] [place] [address] Care Team Providers Care Deputy Director Of Nursing Name Role Phone Gulshan Jorgensen Primary Care Provider Migration, Provider Unavailable Unavailable Allergies Allergen (clinical drug ingredient) Drug/Non Drug Allergy documented on EMR Reaction Allergy Type Onset Date Status Penicillin anaphylaxis Drug Allergy Acti ve Results Component Value Reference Range Notes UA Dip / Urinalysis, Routine , Manual - 63243 Reviewed date:09/25/2024 10:18:31 AM Interpretation: Performing Lab: Notes/Report: Color Yellow Clarity Clear Glucose - Bilirubin - Ketones - Specific [place] 1.0052 Blood - pH 7.5 Protein Trace [...] down, depressed, or hopeless More than h long term the days Trouble falling or staying a [...] Notes: Completed 12/21 Completed 12/21 Completed 12/21 CIME Dep/tob - 07/09/24 Completed 12/21 CIME Dep/tob - 07/09/24 Completed 12/21 CIME Dep/tob - 07/09/24 Completed 12/21 Problems Problem Type SNOMED Code ICD Code Onset Dates Problem Status W/U Status Risk Notes Problem Spinal stenosis of lumbar region (41880702) Spinal stenosis at L4-L5 level (M48.061) Active confirmed Problem Tobacco abuse (2672277615) Tobacco abuse (Z72.0) Active confirmed Problem Moderate recurrent major depression (61252889) Moderate episode of recurrent major depressive disorder (F33.1) Active confirmed Problem Pyelonephritis (87419571) Pyelonephritis (N12) Active confirmed Problem Lumbar radiculopathy (036711913) Lumbar back pain with radiculopathy affecting left lower extremity (M54.16) Active confirmed Problem Left tennis elbow (014659896444824) Left tennis elbow (M77.12) Active confirmed Vital Signs Heart Rate 93 /min 10/23/2024 Temperature 97.9 degrees Fahrenheit 10/23/2024 Height-cm 157.48 cm 10/23/2024 Oximetry 94 % 10/23/2024 Blood pressure diastolic 80 mm Hg 10/23/2024 Weight-kg 51.26 kg 10/23/2024 Height 62 in 10/23/2024 Blood pressure systolic 125 mm Hg 10/23/2024 Weight 113 lbs 10/23/2024 BMI 20.67 kg/m2 10/23/2024 Encounters Encounter Location Date Provider Diagnosis [facility] [address] [place] [id number] 03/05/2024 Gulshan Jorgensen Left tennis elbow M77.12 ; Lumbar back pain with radiculopathy affecting left lower extremity M54.16 ; Moderate episode of recurrent major depressive disorder F33.1 ; Cigarette smoker F17.210 ; Body mass index [BMI] 20.0-20.9, adult Z68.20 ; Depression screen Z13.31 and Tobacco abuse Z72.0 [facility] [address] [address] 07/09/2024 Gulshan Jorgensen Moderate episode of recurrent major depressive disorder F33.1 ; Lumbar back pain with radiculopathy affecting left lower extremity M54.16 and Depression screen Z13.31 [facility] [address] [address] 09/25/2024 Gulshan Jorgensen UTI symptoms R39.9 ; Lumbar back pain with radiculopathy affecting left lower extremity M54.16 and Depression screen Z13.31 [facility] [address] [address] 10/23/2024 Gulshan Jorgensen Lumbar back pain wit h radiculopathy affecting left lower extremity M54.16 Migrated_Facility 0 0 01/28/2024 Provider Migration Migrated[facility]Facility 0 0 01/29/2024 Provider Migration [facility] [address] [address] 03/05/2024 Gulshan Jorgensen Lumbar back pain wit h radiculopathy affecting left lower extremity M54.16 [facility] [address] [address] 03/19/2024 Gulshan Jorgensen [facility] [address] [phone] 07/18/2024 Gulshan Jorgensen [facility] [address] [address] 11/19/2024 Gulshan Jorgensen [facility] [address] [phone] 11/19/2024 Gulshan Jorgensen [facility] [address] [address] 12/04/2024 Gulshan Jorgensen Dysuria R30.0 Assessments Encounter Date Diagnosis (ICD Code) Assessment Notes Treatment Notes Treatment Clinical Notes Section Notes 10/23/2024 Lumbar back pain with radiculopathy affecting left lower extremity (ICD-10 - M54.16) 12/04/2024 Dysuria (ICD-10 - R30.0) 09/25/2024 UTI symptoms (ICD-10 - R39.9) 09/25/2024 Lumbar back pain with radiculopathy affecting left lower extremity (ICD-10 - M54.16) 07/09/2024 Moderate episode of recurrent major depressive disorder (ICD-10 - F33.1) 03/05/2024 Lumbar back pain with radiculopathy affecting left lower extremity (ICD-10 - M54.16) 03/05/2024 Lumbar back pain with radiculopathy affecting left lower extremity (ICD-10 - M54.16) 03/05/2024 Left tennis elbow (ICD-10 - M77.12) 03/05/2024 Moderate episode of recurrent major depressive disorder (ICD-10 - F33.1) 07/09/2024 Lumbar back pain with radiculopathy affecting left lower extremity (ICD-10 - M54.16) 09/25/2024 Depression screen (ICD-10 - Z13.31) 07/09/2024 Depression screen (ICD-10 - Z13.31) 03/05/2024 Cigarette smoker (ICD-10 - F17.210) 03/05/2024 Body mass index [BMI] 20.0-20.9, adult (ICD-10 - Z68.20) 03/05/2024 Depression screen (ICD-10 - Z13.31) 03/05/2024 Tobacco abuse (ICD-10 - Z72.0) Plan Of Treatment Next Appt Details Provider Name:Gulshan Jorgensen, 01/07/2025 10:00:00 AM, [address], [address], Provider Name:Gulshan Jorgensen, 04/25/2025 10:00:00 AM, [address], [place], [address], Insurance Providers Payer Name Payer Address Payer Phone Subscriber Number Group Number Insured Name Patient Relationship to Insured Coverage Start Date Coverage End Date Amandeep BILLS [address] [place] [phone] [id number] JOSH QUIÑONES Self - patient is the [...]
--- NOTE | 2025-01-05 05:16 | W.ED.SOB ---
HPI - SOB/Dyspnea General: Chief Complaint: Shortness of Breath/Dyspnea Stated Complaint: Low o2, SOB Time Seen by Provider: 01/05/25 05:10 History of Present Illness: HPI Narrative: 44-year-old female who is short of breath. She left earlier in my shift AMA following a workup showing bilateral pneumonia with tree-in-bud appearance on CTA. She got home, became more short of breath, and her daughter convinced her to come back. She is wheezing. She is coughing. She has some sputum production. No fever. Related Data Home Medications ?Medication ?Instructions ?Recorded ?Confirmed acetaminophen 325 mg tablet 650 mg PO QID PRN Pain 04/22/23 10/14/23 tramadol 50 mg tablet 50 - 100 mg PO Q6H PRN Pain 04/22/23 10/14/23 Previous Rx's ?Medication ?Instructions ?Recorded ondansetron 8 mg disintegrating 8 mg PO Q8H PRN nausea and 05/18/23 tablet vomiting #14 tabs bupropion HCl 300 mg 24 hr tablet, 300 mg PO QAM #90 tabs 08/11/23 extended release solifenacin 10 mg tablet (Vesicare) 10 mg PO DAILY #30 tabs 08/11/23 aripiprazole 5 mg tablet 5 mg PO DAILY #90 tabs 09/08/23 nitrofurantoin 100 mg PO BID 7 days #14 caps 10/14/23 monohydrate/macrocrystals 100 mg capsule (Macrobid) pregabalin 200 mg capsule 200 mg PO TID #90 caps 12/02/23 ketorolac 10 mg tablet 10 mg PO Q8H PRN pain #15 tabs 05/29/24 doxycycline hyclate 100 mg capsule 100 mg PO BID 10 days #20 caps 01/04/25 methylprednisolone 4 mg tablets in See Rx Instructions PO .COMPLEX 01/04/25 a dose pack (Medrol (Ascencion)) #21 ea Allergies Allergy/AdvReac Type Severity Reaction Status Date / Time Penicillins Allergy RASH/ ITCHY Verified 05/29/24 18:23 [facility] ED PFSH: Medical History Viral syndrome Joint pain Chronic steroid use Hepatitis C antibody positive in blood Immunization counseling High risk medication use Inflammatory arthritis Seasonal allergies Anxiety Opioid contract exists Long-term use of high-risk medication Chronic low back pain with left-sided sciatica MIREILLE (generalized anxiety disorder) Depression Surgical History H/O laminectomy History of tonsillectomy and adenoidectomy H/O: hysterectomy H/O carpal tunnel repair Family History Other CAD (coronary artery disease) Cancer Diabetes Family history of premature coronary artery disease Hyperlipidemia Hypertension Rheumatoid arthritis Stroke Denies family history of Lupus Chronic kidney disease (CKD) Lung disease Social History Smoking and tobacco/nicotine status: never used tobacco/nicotine Second hand smoke exposure: Yes Alcohol intake: never Substance/Drug Use: current Substance/Drug use frequency: few times a month Lives independently: Yes Household members: spouse Marital status: Current gender identity: Female Special juan needs: No Physical Exam Const: GENERAL APPEARANCE: cooperative and ill appearing; not frail appearing HENMT: COMMON NORMALS: normocephalic, atraumatic and Normal external nose present HEAD & SCALP: normocephalic and atraumatic FACE & SINUS: normal facial exam and face symmetric NOSE: Normal external nose present Eye: COMMON NORMALS: Equal, round and reactive pupils present and EOMs intact bilaterally PUPIL: Yes Equal, round and reactive pupils present Neck/C-Spine: GENERAL: Yes trachea midline Chest: CHEST: Yes Symmetrical chest wall rise Resp: COMMON NORMALS: normal respiratory effort EFFORT & INSPECTION: Yes tachypneic and Yes labored AUSCULTATION: rhonchi and wheezes Cardio: COMMON NORMALS: regular rate and regular rhythm RATE: regular rate RHYTHM: regular rhythm GI: COMMON NORMALS: Normal to inspection, nondistended, normoactive bowel sounds present Extremity: COMMON NORMALS: no pedal edema Neuro: GARTH COMA SCALE: document GCS findings Garth coma scale eye opening: Spontaneous Garth coma scale verbal response: Orientated [place] coma scale motor response: Obey commands Garth coma scale total score: 15 SENSORY EXAM: Yes extremities (intact) Psych: COMMON NORMALS: speech normal SPEECH: Yes normal speech Skin: COMMON NORMALS: no rashes or lesions noted GENERAL SKIN EXAM: no rashes or lesions noted Course Vital Signs: Vital signs: Vital Signs Pulse Rate 80 01/05/25 05:35 Respiratory Rate 18 01/05/25 05:35 Blood Pressure 120/78 01/05/25 05:30 Pulse Oximetry 91 01/05/25 05:35 Oxygen Delivery Me thod Nasal Cannula 01/05/25 05:35 Oxygen Flow Rate 1 01/05/25 05:35 MDM - SOB/Dyspnea Medical Decision Making 44-year-old female with bilateral pneumonia diagnosed on her visit here last night. She received blood cultures, antibiotics, lactate, etc. on that visit. I have repeated labs this morning. Contacted hospitalist. He will will see the patient. She does not need repeat antibiotics at this time, as she had them within the last 12 hours. She is still oxygen dependent, although improved. She is given a breathing treatment here. CBC is normal now. Lab Data 01/05/25 05:27 01/05/25 05:27 Labs/Radiology: Laboratory Results WBC 9.88 10^3/uL (3.29-11.43) 01/05/25 05:27 RBC 4.33 10^6/uL (3.85-5.65) 01/05/25 05:27 Hgb 12.10 g/dL (11.27-16.99) 01/05/25 05:27 Hct 37.1 % (36-47) 01/05/25 05:27 MCV 85.7 fl (85-98) 01/05/25 05:27 MCH 27.9 pg (27-33) 01/05/25 05:27 MCHC 32.6 g/dL (30-55) 01/05/25 05:27 RDW 13.4 % (12.1-15.1) 01/05/25 05:27 Plt Count 245 10^3/cmm (157-399) 01/05/25 05:27 MPV 10.3 fL (7.4-10.4) 01/05/25 05:27 Neut % (Auto) 93.3 % 01/05/25 05:27 Lymph % (Auto) 4.5 % 01/05/25 05:27 [place] % (Auto) 1.8 % 01/05/25 05:27 Eos % (Auto) 0.0 % 01/05/25 05:27 Baso % (Auto) 0.2 % 01/05/25 05:27 Neut # (Auto) 9.22 10^3/uL (1.8-7.7) H 01/05/25 05:27 Lymph # (Auto) 0.4 10^3/uL (0.8-4.8) L 01/05/25 05:27 [place] # (Auto) 0.2 10^3/uL (0.2-0.9) 01/05/25 05:27 Eos # (Auto) 0.0 10^3/uL (0.0-0.8) 01/05/25 05:27 Baso # (Auto) 0.0 10^3/uL (0.0-0.1) 01/05/25 05:27 Nucleated RBC % (auto) 0 % 01/05/25 05:27 Nucleated RBCs # 0.0 /100WBC 01/05/25 05:27 No radiology studies performed this visit Discharge Plan Discharge Patient Disposition: Admitted As Inpatient Clinical Impression: Acute and chronic respiratory failure with hypoxia, Bilateral pneumonia Condition: Stable Coding Level of Care Code ED Behavioral Instructor for Jayla Zheng
--- NOTE | 2025-01-05 05:32 | ECG_ITS ---
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 Measurements Intervals [place] Rate: 80 P: 69 IN: 147 QRS: 79 QRSD: 84 T: 52 QT: 400 QTc: 462 Interpretive Statements SINUS RHYTHM Compared to ECG 01/04/2025 19:03:07 Sinus tachycardia no longer present T-wave abnormality no longer present Electronically Signed On 01-05-2025 14:25:56 CDT by Catie Tanner M.D. [email or web address]
[2025-01-05 05:36] LABS: Hematocrit 37.1 % (36-47); Hemoglobin 12.10 g/dL (11.27-16.99); Mean Corpuscular HGB Conc 32.6 g/dL (30-55); Mean Corpuscular Hemoglobin 27.9 pg (27-33); Mean Corpuscular Volume 85.7 fl (85-98); Nucleated Red Blood Cells % 0 %; Platelet Count 245 10^3/cmm (157-399); Red Blood Count 4.33 10^6/uL (3.85-5.65); White Blood Count 9.88 10^3/uL (3.29-11.43)
[2025-01-05 05:48] LABS: Lactic Sepsis W/Reflex 1.0 mmol/L (0.5-2.2)
[2025-01-05 06:00] LABS: Alanine Aminotransferase 9 U/L (0-33); Albumin Level 3.7 g/dL (3.5-5.2); Alkaline Phosphatase 111 U/L (35-105); Anion Gap 13.3 (5-19); Aspartate Amino Transferase 10 U/L (0-32); Blood Urea Nitrogen 8 mg/dL (6-20); Calcium 8.7 mg/dL (8.5-10.5); Carbon Dioxide 31 mmol/L (22-29); Chloride 94 mmol/L (98-107); Globulin 3.5 g/dL (1.3-4.6); Glucose 205 mg/dL (65-115); NT Pro B Type Natriuretic Pept 620 pg/mL (0-125); Osmolality Calculated 284 mOsm/kg (285-295); Potassium 3.3 mmol/L (3.5-5.1); Sodium 135 mmol/L (136-145); Total Protein 7.2 g/dL (6.6-8.7)
--- NOTE | 2025-01-05 06:10 | PC.NURSE ---
Patient report was called to Mago VALDERRAMA on Med-Surg. All questions and concerns were addressed at time of report.
[2025-01-05] MEDS: methylPREDNISolone sod succ 40 mg/mL INJ IVP ×3 (08:02→23:25)
[2025-01-05] MEDS: cefTRIAXone 1,000 mg SDV 1000 MG IVP (08:03)
[2025-01-05 09:26] LABS: HIV 1 & 2 Antigen Non-Reactive (Non-Reactiv)
[2025-01-05 10:46] LABS: MRSA PCR OZH (swab) NOT DETECTED (Not Detecte)
--- NOTE | 2025-01-05 12:00 | PM.MISC ---
Miscellaneous Note Purpose of Documentation: overnight labs and H&P reveiwed patient admitted with B/L infiltrates GGOS which are oncerning for atypical pneumonia on further history patient reports h/o vape use about 3 months ago She developed a chronic cough 3 months ago and had visited urgent where she was given a script for medrol dose pack. i do not see a CXR from this time in our records. her symptoms did not improve. She was noted to be hypoxic one week ago at her psychitarist office as well, reportedly saturation improved with deep breathing. She stopped vaping as she developed a persistent asthma like cough per her description. 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 NO known h/o TB or Tb contacts. Quit working 7 months ago Plan: Differentials are broad at this time. MAy be vape induced lung injury - start meythprednisone 40mg iv every 8 hrs Check HIV Ag/AB screen Has a h/o hep C- check hep C pCR- has never been treated before. Not the cause of her current symptoms atypical bacterial pneumonia- check urine legionella Ag and bacterial AG panel, sputum cx start ceftriaxone 1 g iv every 24 H + levaquin 750mg po daily check serum LDH and fungitell, check sputum PJP PCR check MTB PCR x 3 on expectorated sputum , quantiferon screen given [facility] exposure Histoplasma Ab already sent, check urine histo ag pending coccidiodes and blastomyces serology check tularemia IgG and IgM
[2025-01-05] MEDS: buprenorphine-naloxon 2-0.5MG FILM 1 EACH SUBLINGUAL ×2 (14:38→21:10)
[2025-01-06] VITALS (14 sets, daily range): BP systolic 114–146; BP diastolic 67–84; PULSE 67–101; RESP 14–18; TEMP 36.5–36.6; O2SAT 94–98
[2025-01-06 03:29] LABS: Hematocrit 38.3 % (36-47); Hemoglobin 12.40 g/dL (11.27-16.99); Mean Corpuscular HGB Conc 32.4 g/dL (30-55); Mean Corpuscular Hemoglobin 27.9 pg (27-33); Mean Corpuscular Volume 86.1 fl (85-98); Nucleated Red Blood Cells % 0 %; Platelet Count 298 10^3/cmm (157-399); Red Blood Count 4.45 10^6/uL (3.85-5.65); White Blood Count 11.68 10^3/uL (3.29-11.43)
[2025-01-06 03:49] LABS: Magnesium 2.4 mg/dL (1.7-2.3)
[2025-01-06 03:53] LABS: Alanine Aminotransferase 10 U/L (0-33); Albumin Level 3.9 g/dL (3.5-5.2); Alkaline Phosphatase 138 U/L (35-105); Anion Gap 15.4 (5-19); Aspartate Amino Transferase 13 U/L (0-32); Blood Urea Nitrogen 9 mg/dL (6-20); Calcium 9.0 mg/dL (8.5-10.5); Carbon Dioxide 32 mmol/L (22-29); Chloride 95 mmol/L (98-107); Creatinine Clr Calc Pharmacy 94.9598; Globulin 2.6 g/dL (1.3-4.6); Glucose 161 mg/dL (65-115); Osmolality Calculated 290 mOsm/kg (285-295); Potassium 3.4 mmol/L (3.5-5.1); Sodium 139 mmol/L (136-145); Total Protein 6.5 g/dL (6.6-8.7)
[2025-01-06 04:02] LABS: Hepatitis A Antibody IgM Non-Reactive (Nonreactive); Hepatitis B Surface Antigen Non-Reactive (Nonreactive)
[2025-01-06] MEDS: buprenorphine-naloxon 2-0.5MG FILM 1 EACH SUBLINGUAL ×3 (05:14→20:17)
[2025-01-06] MEDS: cefTRIAXone 1,000 mg SDV 1000 MG IVP (07:08)
[2025-01-06] MEDS: methylPREDNISolone sod succ 40 mg/mL INJ IVP ×3 (07:11→23:29)
--- NOTE | 2025-01-06 13:49 | PM.PN ---
Subjective Subjective: Patient states she feels slightly better today. Currently on 4 L/min supplemental O2 when examined. Gets tachypneic in conversation. Medications: Reviewed: Yes Vitals/I&O/Wt Last Vital Signs Temp 97.9 F 01/06/25 12:00 Pulse 88 01/06/25 13:38 Resp 18 01/06/25 13:38 BP 129/72 01/06/25 12:00 Pulse Ox 98 01/06/25 13:40 O2 Del Method Nasal Cannula 01/06/25 13:40 O2 Flow Rate 3 01/06/25 13:40 01/05/25 01/06/25 01/06/25 22:59 06:59 14:59 Intake Total 240 / 720 360 / 360 Output Total 1000 / 1250 Balance -1000 / -770 240 / -530 360 / 360 Weight last 48 hrs Weight 53.524 kg Weight 51.71 kg Physical Exam Narrative: General: No acute distress, AO x3 HEENT: PERRLA, pupils bilaterally equal and reactive, pallors not present Chest: crackles to auscultation B/l all areas CVS: S1-S2 regular, no murmurs, no tachycardia, no gallops, no rubs Abdomen: Soft, nontender, no organomegaly, bowel sounds present Neuro: No focal deficits, no facial deformity, AO x3, power 5/5 in all limbs Data 01/05/25 05:27 01/05/25 05:27 Micro: Microbiology 01/05/25 14:40 Gram Stain - Final Sputum - Expectorated Sputum Sputum Culture - Preliminary 01/05/25 08:55 Gram Stain - Final Sputum - Expectorated Sputum Sputum Culture - Preliminary Gram Negative Rods 01/05/25 17:30 Bacterial Antigens - Final Urine,Voided 01/05/25 18:50 Legionella Urinary Antigen - Final Urine,Voided A&P Assessment and plan 1. E-cigarette or vaping product use associated lung injury (EVALI): 2. Multilobar lung infiltrate: 3. Atypical pneumonia: 4. Hypoxia: Plan: 44-year-old lady admitted with 3 months of chronic cough, progressively increasing dyspnea, hypoxia with a history of vape use 3 months ago and prior to onset of symptoms. CT chest showing moderate bilateral infiltrates for which she is currently undergoing evaluation. Differentials include atypical infection, EVALI versus interstitial lung disease. HIV serology negative. 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 Specimens have been collected and sent to [facility], results expected within 5 to 7 days. Will attempt to send specimen to health department additionally. Patient reports her last PPD was -6 months ago when she worked at [employer]. LDH mildly elevated at 234. Pending Fungitell and PJP PCR. Would not treat empirically at this time. Pending histoplasma urine antigen, histoplasma serology, Coccidioides antibody and Blastomyces antibody. Patient does not have any classical historical risk factors for the same. Urine Legionella antigen negative. Continue ceftriaxone and levofloxacin. Sputum culture is showing gram-negative rods and few yeast. Low suspicion for cryptococcal infection, however will await speciation of yeast. Pending cryptococcal serum antigen. Pending tularemia serology. Alternate differentials include EVALI related to vaping gives at onset of symptoms versus interstitial lung disease. patient is anxious to return home, states that being in the hospital makes her very nervous. Discussed with her that we will plan to repeat a chest x-ray in AM and send MTB PCR to the health department for quicker turnaround time on TB testing. If the chest x-ray continues to show stability, patient will likely discharge on oral antibiotics and a steroid taper. Plan to repeat CT in 10 to 14 days while pending all peripheral evaluation. If CT continues to be abnormal, will likely need bronchoscopy for further diagnostics. If chest x-ray tomorrow shows interval worsening, may need bronchoscopy as an inpatient. Continue empiric antibiotic coverage with levofloxacin, ceftriaxone while awaiting gram-negative rods in sputum culture to be identified. MRSA nasal screen negative. Viral panel negative for RSV COVID and flu. PDMP PDMP Reviewed: Not Reviewed Attestations Medical Necessity Statement*: Continue antibiotics, pending sputum culture, await chest x-ray in a.m. Coding Level of Care Code Acute Code for Chg Fwd High MDM includes number and complexity of problems actively addressed during encounter, amount and/or complexity of data reviewed/ordered and described risk of complication, morbidity or mortality of management as documented Diagnoses E-cigarette or vaping product use associated lung injury (EVALI) U07.0 Multilobar lung infiltrate R91.8 Atypical pneumonia J18.9 Hypoxia R09.02
[2025-01-06] MEDS: polyethylene glycol 3350 Pkt 17 gm PO (17:49)
[2025-01-07] VITALS (9 sets, daily range): BP systolic 111–123; BP diastolic 67–75; PULSE 63–81; RESP 15–20; TEMP 36.4–36.5; O2SAT 86–96
--- NOTE | 2025-01-07 04:00 | XR_ITS ---
WS: [id number] Portable AP upright chest, 01/07/2025 Clinical Data: f/up lung infiltrates Comparison: Portable chest, 01/04/2025, CT chest PE, 01/04/2025 Findings: No nodules, masses or effusions are seen. The heart is normal. The pulmonary vascularity is not increased. No pneumonia or pneumothorax is seen. The patchy opacities seen on the CT chest are not seen on the current examination. There are monitor leads on the chest wall. XR/XR chest 1V portable [id number] Impression: Negative chest.
[2025-01-07] MEDS: buprenorphine-naloxon 2-0.5MG FILM 1 EACH SUBLINGUAL ×2 (04:31→12:50)
[2025-01-07] MEDS: polyethylene glycol 3350 Pkt 17 gm PO (04:41)
[2025-01-07 05:19] LABS: Hematocrit 37.8 % (36-47); Hemoglobin 12.10 g/dL (11.27-16.99); Mean Corpuscular HGB Conc 32.0 g/dL (30-55); Mean Corpuscular Hemoglobin 28.1 pg (27-33); Mean Corpuscular Volume 87.7 fl (85-98); Nucleated Red Blood Cells % 0 %; Platelet Count 331 10^3/cmm (157-399); Red Blood Count 4.31 10^6/uL (3.85-5.65); White Blood Count 11.63 10^3/uL (3.29-11.43)
[2025-01-07 05:41] LABS: Alanine Aminotransferase 11 U/L (0-33); Albumin Level 3.6 g/dL (3.5-5.2); Alkaline Phosphatase 105 U/L (35-105); Anion Gap 15.3 (5-19); Aspartate Amino Transferase 14 U/L (0-32); Blood Urea Nitrogen 9 mg/dL (6-20); Calcium 9.1 mg/dL (8.5-10.5); Carbon Dioxide 31 mmol/L (22-29); Chloride 97 mmol/L (98-107); Creatinine Clr Calc Pharmacy 122.1927; Globulin 2.9 g/dL (1.3-4.6); Glucose 168 mg/dL (65-115); Osmolality Calculated 293 mOsm/kg (285-295); Potassium 3.3 mmol/L (3.5-5.1); Sodium 140 mmol/L (136-145); Total Protein 6.5 g/dL (6.6-8.7)
[2025-01-07] MEDS: methylPREDNISolone sod succ 40 mg/mL INJ IVP (06:30)
[2025-01-07] MEDS: cefTRIAXone 1,000 mg SDV 1000 MG IVP (06:30)
--- NOTE | 2025-01-07 12:53 | PM.DCS ---
Discharge Providers Date of Admission: 01/05/25 05:32 Date of Discharge: January 07, 2025 Attending Provider at Admission: James Miramontes MD Attending Provider at Discharge: Nicolas Sullivan MD Primary Care Provider: Jesus Jorgensen MD Diagnoses at Discharge Discharge Diagnosis 1. E-cigarette or vaping product use associated lung injury (EVALI): 2. Multilobar lung infiltrate: 3. Atypical pneumonia: 4. Hypoxia: Reason for Visit Reason for Visit: Low o2, SOB Brief History: 44-year-old female admitted with 3 months of chronic cough, progressively increasing dyspnea/hypoxia with a history of vape use 3 months ago and prior to onset of symptoms. Hospital Course Hospital Course 1. E-cigarette or vaping product use associated lung injury (EVALI): - CT chest showing moderate bilateral infiltrates for which she is currently undergoing evaluation. - HIV negative. - albuterol/budesonide inhaler BID ordered inpatient, however if this requires a prior authorization with patient's insurance will need to fill with PCP. - recommend cessation, follow up with PCP vs. pulmonary for medication optimization 2. Multilobar lung infiltrate: 3. Atypical pneumonia: Klebsiella pneumonia positive. - pending QuantiFERON and MTB PCR x 3 - had negative PPD 6 months ago - Pending Fungitell and PJP PCR - Pending histoplasma urine antigen, histoplasma serology, Coccidioides antibody and Blastomyces antibody. Patient does not have any classical historical risk factors for these. - Urine Legionella, strep Group B, S. pneumoniae, N. minigitidis antigen negative. - Continue ceftriaxone and levofloxacin. - Sputum culture is showing gram-negative rods and few yeast. Low suspicion for cryptococcal infection, positive for Klebsiella pneumonia, only resistant to tetracycline. - cryptococcal serum antigen negative. - Pending tularemia serology. - discharge planning on steroid taper, complete abx as OP. - MRSA nasal screen negative. - Viral panel negative for RSV COVID and flu. - repeat cxr this AM without issues. 4. Hypoxia: - home O2 eval prior to D/C, not previously on home O2 Hypokalemia - 40 meq given today Disposition - discharge planning for today - recommend outpatient follow up with pulmonary, consider PFTs in 4-6 weeks if not already done. - medication optimization as outpatient for respioratory issues. Physical Exam Const: COMMON NORMALS: no acute distress, average body habitus and patient oriented x3 HENMT: COMMON NORMALS: normocephalic and atraumatic HEAD & SCALP: normocephalic and atraumatic Eye: COMMON NORMALS: Equal, round and reactive pupils present and EOMs intact bilaterally PUPIL: Yes Equal, round and reactive pupils present Neck/C-Spine: COMMON NORMALS: no JVD Lymph: LYMPHATIC: no lymphadenopathy noted and no lymphedema noted Resp: COMMON NORMALS: normal respiratory effort, No retractions and clear to auscultation bilaterally AUSCULTATION: clear to auscultation bilaterally Cardio: COMMON NORMALS: no JVD, regular rate, regular rhythm, S1 normal heart sound present, S2 normal heart sound present, No gallops present (Cardio), No murmurs present (Cardio) and No rub (Cardio) RATE: regular rate RHYTHM: regular rhythm HEART SOUNDS: S1 normal heart sound present and S2 normal heart sound present GI: COMMON NORMALS: Soft to palpation, non-tender and no masses PALPATION: Yes Soft to palpation Neuro: COMMON NORMALS: patient oriented x3 and CN's II-XII intact bilaterally Discharge Data Studies Completed and Pending Completed Studies During Hospitalization Category Date Time Status CXRP [XR chest 1V portable [id number]] AM LABS Exams 01/07/25 04:00 Completed Pending at discharge Category Date Time Status AFB [Mycobacteria, Culture w/Fluor] Q8H Lab 01/06/25 14:18 Uncollected AFB [Mycobacteria, Culture w/Fluor] Q8H Lab 01/06/25 22:18 Uncollected AFB [Mycobacteria, Culture w/Fluor] Q8H Lab 01/07/25 06:18 Uncollected TOYA Profile Rheumatology AM LABS Lab 01/07/25 04:40 Received Coccidioides AB Immunodiffusio Routine Lab 01/05/25 05:27 Received Cryptococcal Antigen (Serum) Routine Lab 01/05/25 07:30 Uncollected Fungitell Glucan Assay (Blood) Routine Lab 01/05/25 08:51 Received Hepatitis C RNA Viral Load Qnt AM LABS Lab 01/06/25 01:52 Received Histoplasma Antibody Immunodif Routine Lab 01/05/25 05:27 Received Histoplasma Quantitative AG Routine Lab 01/05/25 17:30 Received MTB Complex & Rifampin Sputum Q8H Lab 01/05/25 17:32 Received MTB Complex & Rifampin Sputum Q8H Lab 01/05/25 23:32 Received MTB Complex & Rifampin Sputum Q8H Lab 01/06/25 10:15 Received MVista Blastomyces AG Quant Routine Lab 01/05/25 05:27 Received PJP Qual Sputum [Pneumocystis jiroveci Qual PCR] Lab 01/05/25 08:55 Received Routine Wnfnymmtkul-WT-Lppu Plus Routine Lab 01/05/25 08:51 Received Respiratory Panel 2 Routine Lab 01/05/25 07:24 Ordered Sputum Culture and Gram Stain Routine Lab 01/05/25 14:40 Results Radiology Impressions Chest X-Ray 01/07/25 04:00 Impression: Negative chest. Laboratory Results WBC 11.63 10^3/uL (3.29-11.43) H 01/07/25 04:40 RBC 4.31 10^6/uL (3.85-5.65) 01/07/25 04:40 Hgb 12.10 g/dL (11.27-16.99) 01/07/25 04:40 Hct 37.8 % (36-47) 01/07/25 04:40 MCV 87.7 fl (85-98) 01/07/25 04:40 MCH 28.1 pg (27-33) 01/07/25 04:40 MCHC 32.0 g/dL (30-55) 01/07/25 04:40 RDW 13.8 % (12.1-15.1) 01/07/25 04:40 Plt Count 331 10^3/cmm (157-399) 01/07/25 04:40 MPV 10.7 fL (7.4-10.4) H 01/07/25 04:40 Neut % (Auto) 87.9 % 01/07/25 04:40 Lymph % (Auto) 6.5 % 01/07/25 04:40 [place] % (Auto) 4.6 % 01/07/25 04:40 Eos % (Auto) 0.0 % 01/07/25 04:40 Baso % (Auto) 0.1 % 01/07/25 04:40 Neut # (Auto) 10.22 10^3/uL (1.8-7.7) H 01/07/25 04:40 Lymph # (Auto) 0.8 10^3/uL (0.8-4.8) 01/07/25 04:40 [place] # (Auto) 0.5 10^3/uL (0.2-0.9) 01/07/25 04:40 Eos # (Auto) 0.0 10^3/uL (0.0-0.8) 01/07/25 04:40 Baso # (Auto) 0.0 10^3/uL (0.0-0.1) 01/07/25 04:40 Nucleated RBC % (auto) 0 % 01/07/25 04:40 Nucleated RBCs # 0.0 /100WBC 01/07/25 04:40 Sodium 140 mmol/L (136-145) 01/07/25 04:40 Potassium 3.3 mmol/L (3.5-5.1) L 01/07/25 04:40 Chloride 97 mmol/L (98-107) L 01/07/25 04:40 Carbon Dioxide 31 mmol/L (22-29) H 01/07/25 04:40 Anion Gap 15.3 (5-19) 01/07/25 04:40 BUN 9 mg/dL (6-20) 01/07/25 04:40 Creatinine 0.5 mg/dL (0.5-0.9) 01/07/25 04:40 GFR Calculation 133.4 mL/min (90-130) H 01/07/25 04:40 Glucose 168 mg/dL (65-115) H 01/07/25 04:40 Calculated Osmolality 293 mOsm/kg (285-295) 01/07/25 04:40 Lactic Acid 1.0 mmol/L (0.5-2.2) 01/05/25 05:27 Calcium 9.1 mg/dL (8.5-10.5) 01/07/25 04:40 Magnesium 2.4 mg/dL (1.7-2.3) H 01/06/25 01:52 Total Bilirubin 0.2 mg/dL (0.15-1.2) 01/07/25 04:40 AST 14 U/L (0-32) 01/07/25 04:40 ALT 11 U/L (0-33) 01/07/25 04:40 Alkaline Phosphatase 105 U/L (35-105) 01/07/25 04:40 Lactate Dehydrogenase 234 U/L (135-214) H 01/05/25 08:51 NT-Pro-B Natriuret Pep 620 pg/mL (0-125) H 01/05/25 05:27 Total Protein 6.5 g/dL (6.6-8.7) L 01/07/25 04:40 Albumin 3.6 g/dL (3.5-5.2) 01/07/25 04:40 Globulin 2.9 g/dL (1.3-4.6) 01/07/25 04:40 Nasal MRSA (PCR) Not detected (Not Detecte) 01/05/25 08:55 Hepatitis A IgM Ab Non-reactive (Nonreactive) 01/06/25 01:52 Hep Bs Antigen Non-reactive (Nonreactive) 01/06/25 01:52 Hep Bs Antibody 29.0 (11.5-1000) 01/06/25 01:52 Hep B Core Total Ab Non-reactive (Nonreactive) 01/06/25 01:52 Hepatitis C Antibody Reactive (Nonreactive) H 01/06/25 01:52 HCV RNA Qnt PCR Amp&Det Cancelled 01/06/25 04:18 HCV RNA (PCR) IUs/ml Cancelled 01/06/25 04:18 HCV RNA (PCR) IU log10 Cancelled 01/06/25 04:18 HIV 1&2 Ab & HIV 1 Ag Non-reactive (Non-Reactiv) 01/05/25 08:51 HIV 1&2 Antibody Non-reactive (Non-Reactiv) 01/05/25 08:51 Vitals Last Vital Signs Temp 97.7 F 01/07/25 11:08 Pulse 81 01/07/25 11:08 Resp 20 H 01/07/25 11:08 BP 117/75 01/07/25 11:08 Pulse Ox 86 L 01/07/25 11:21 O2 Del Method Nasal Cannula 01/07/25 11:08 O2 Flow Rate 3 01/07/25 11:21 Discharge Plan Discharge Patient Disposition: Home Condition: Stable Prescriptions: New levofloxacin 750 mg Tablet 750 mg PO DAILY Qty: 7 0RF cefdinir 300 mg capsule 300 mg PO BID 10 Days Qty: 20 0RF albuterol-budesonide 90-80 mcg/actuation HFA aerosol inhaler 2 inh inhalation BID PRN (Reason: shortness of breath) Qty: 5.9 2RF Continued solifenacin [Vesicare] 10 mg tablet 10 mg PO DAILY Qty: 30 3RF pregabalin 200 mg capsule 200 mg PO TID Qty: 90 0RF doxycycline hyclate 100 mg capsule 100 mg PO BID 10 Days Qty: 20 0RF acetaminophen 325 mg Tablet 650 mg PO QID PRN (Reason: Pain) lamotrigine 25 mg tablet 2 - 25 mg PO DAILY Caplyta 21 mg capsule 21 mg PO DAILY bupropion HCl 300 mg tablet extended release 24 hr 150 mg PO QAM buprenorphine-naloxone 2-0.5 mg tablet, sublingual 1 tab SUBLINGUAL TID methylprednisolone [Medrol (Ascencion)] 4 mg tablets,dose pack See Rx Instructions .ROUTE .COMPLEX Qty: 21 0RF Rx Instructions: Take per package instructions for 6 days Discharge Order = DC NOW: Discharge Order (Routine); Ordered 01/07/25 Ordered By: Nicolas Sullivan Other Ambulatory Orders: DME: Oxygen (Order) Location: None Selected Ordered By: Nicolas Sullivan CT chest [facility] [id number] (Routine) Timeframe: 1 Week Facility: [facility] - Location: Radiology [facility] Ordered By: Alycia Zurita Referrals: [facility] [place] [Outside] Collin Wood MD [Physician, Family Practice] - 01/15/25 10:15 am Alycia Zurita MD [Hospitalist, Hospitalist] - 01/15/25 1:00 pm Discharge Diet: Usual diet Discharge Activity: Increase activity as tolerated Patient Instructions: Levofloxacin (By mouth), Cefdinir (By mouth), Using Oxygen at Home (GEN), Opioid Safety, Pain Management, Patient Portal & Bob Instructions Discharge Attestations Time Spent in Discharge Care*: greater than 30 min Specific Discharge Activities: educating patient, educating and/or supporting family/caregiver, discussing with pcp/other providers, discussing with case manager specialist/social workers/dc planners, documenting/other paperwork and evaluating patient/reviewing data Quality Metrics Clinical Quality Measures [ No reported AMI, CVA or VTE this stay] Coding Level of Care Code Acute Code for Chg Fwd Diagnoses E-cigarette or vaping product use associated lung injury (EVALI) U07.0 Multilobar lung infiltrate R91.8 Atypical pneumonia J18.9 Hypoxia R09.02
--- NOTE | 2025-01-07 13:40 | PC.NURSE ---
Patient Discharge Patient discharged with home O2 on 3L vitals taken personal belonging all collected and sent with her and checked to be everything was accounted for. staff wheeled her to the front door and assisted with getting her loaded.
[2025-01-08 12:14] LABS: COMPLEMENT COMPONENT C3C 99 mg/dL (83-193); COMPLEMENT COMPONENT C4C 15 mg/dL (15-57)
[2025-01-08 16:29] LABS: COMPLEMENT, TOTAL (CH50) >60 U/mL (31-60)
[2025-01-08 17:15] LABS: HEP C RNA Viral Load Quant <1.18 NOT DETECTED Log IU/mL (NOT DETECTED); HEP C RNA Viral Load Quant <15 NOT DETECTED IU/mL (NOT DETECTED)
[2025-01-08 18:15] LABS: Histoplasma Antigen (Quant) None Detected; Histoplasma Antigen Interpreta NEGATIVE; Histoplasma Antigen Specimen URINE
[2025-01-09 13:10] LABS: Fungitell 1-3-B Glucan Assay <31 pg/mL (<60); Interpretation Negative (Negative)
[2025-01-09 16:15] LABS: P. Jirovecii DNA QL PCR Not Detected (Not Detected); P. Jirovecii DNA QL PCR Source INDUCED SPUTUM
[2025-01-10 01:39] LABS: Mycobacterium Complex PCR NOT DETECTED; Rifampin Resistance PCR NOT TESTED
[2025-01-10 01:39] LABS: Mycobacterium Complex PCR NOT DETECTED; Rifampin Resistance PCR NOT TESTED
== END 2025-01-07 13:44 | disposition home or self-care (01) | DRG 205 ==
LOC: ER 05:50 → MEDSURG 06:03
PROVIDERS: Student in an Organized Health Care Education/Training Program; Admitting Provider Student in an Organized Health Care Education/Training Program; Emergency Provider Emergency Medicine; PCP Internal Medicine; Visit Provider Internal Medicine
DX: U07.0 Vaping-related disorder (principal); J15.0 Pneumonia due to Klebsiella pneumoniae; J96.21 Acute and chronic respiratory failure with hypoxia; E83.51 Hypocalcemia; B19.20 Unspecified viral hepatitis C without hepatic coma; F41.1 Generalized anxiety disorder; M54.16 Radiculopathy, lumbar region; G89.29 Other chronic pain; F31.9 Bipolar disorder, unspecified; F17.210 Nicotine dependence, cigarettes, uncomplicated; F17.290 Nicotine dependence, other tobacco product, uncomplicated; R63.4 Abnormal weight loss; Z68.24 Body mass index [BMI] 24.0-24.9, adult; Z79.52 Long term (current) use of systemic steroids; Z79.899 Other long term (current) drug therapy
CPT/HCPCS: 36415; 71045; 80053; 83605; 83615; 83735; 83880; 85025; 86160; 86162; 86235; 86255; 86376; 86403; 86480; 86635; 86698; 86705; 86706; 86709; 86803; 87070; 87106; 87186; 87205; 87340; 87385; 87449; 87522; 87798; 87801; 87806; 93005; 94640; 94760; 96372; 99285; J0572; J0696; J1650; J2919; J7626; J7644; J9999

== ENCOUNTER 2025-01-15 11:51 | Outpatient (CLI) | payer OTHER, SELFPAY ==
--- NOTE | 2025-01-15 12:02 | XR_ITS ---
WS: [id number] XR chest 2V* [id number] REASON FOR EXAM: Multilobar Lung infiltrate FINDINGS: Examination is unchanged compared to the previous examination of 01/07/2025. Heart and mediastinum are within normal limits. Calcified granulomatous disease bilaterally. No acute pulmonary parenchymal or pleural abnormality. Mild degenerative spondylosis in the lower thoracic spine. XR/XR chest 2V* [id number] IMPRESSION: No acute chest abnormality.
== END 2025-01-15 11:52 | disposition home or self-care (01) ==
PROVIDERS: PCP Family Medicine; Visit Provider Student in an Organized Health Care Education/Training Program
DX: R91.8 Other nonspecific abnormal finding of lung field (principal); J98.4 Other disorders of lung; M51.34 Other intervertebral disc degeneration, thoracic region
CPT/HCPCS: 71046

== ENCOUNTER 2025-01-23 11:24 | Outpatient (CLI) | payer OTHER, SELFPAY ==
--- NOTE | 2025-01-23 11:23 | MR_ITS ---
WS: [id number] MRI BRAIN WITH AND WITHOUT CONTRAST HISTORY: HAs COMPARISON: None available. TECHNIQUE: Multiplanar imaging performed through the brain with MultiHance 10 ml's IV. No acute infarct. Diffusion imaging is normal. Periventricular T2 and FLAIR signal hyperintensities in the white matter are more than expected for a patient of this age. These are predominantly within the frontal lobes with a few extending into the parietal lobes. No prior infarct. Mild ischemic change in the yenny bilaterally. No significant hippocampal atrophy. No susceptibility artifacts or prior lacunar infarcts. Ventricles and extra-axial spaces are normal. Clivus and pituitary gland are normal. Visualized posterior fossa and brainstem are also normal. Postcontrast images are negative for masses or vascular malformations. Dural venous sinuses are normal. Paranasal sinuses: Mucous retention cyst in the RIGHT maxillary sinus. Small mucous retention cyst in the floor the LEFT maxillary sinus. Mastoid air cells: Normal. Calvarium and scalp: Normal. MR/MR head wo/w con [id number] IMPRESSION: 1. No acute infarcts or hemorrhage. 2. No enhancing mass. 3. Bilateral T2 and FLAIR signal hyperintensities predominantly in the frontal lobes. More than expected for a patient of this age. Signal hyperintensities c an be seen with small vessel changes, hypertension, migraines, diabetes and his tory of smoking. 4. Small mucous retention cysts in the maxillary sinuses.
[2025-01-23] MEDS: gadobenate dimeglumine 20 mL vial 10 ML IV (11:51)
== END 2025-01-23 11:25 | disposition home or self-care (01) ==
LOC: RAD 11:24
PROVIDERS: PCP Family Medicine; Visit Provider Family Medicine
DX: R51.9 Headache, unspecified (principal); R93.0 Abnormal findings on diagnostic imaging of skull and head, not elsewhere classified; J34.1 Cyst and mucocele of nose and nasal sinus
CPT/HCPCS: 70553; A9577

== ENCOUNTER 2025-02-12 11:03 | Outpatient (CLI) | payer OTHER, SELFPAY ==
[2025-02-12 11:18] VITALS: PULSE 77; RESP 18; O2SAT 93
== END 2025-02-12 11:04 | disposition home or self-care (01) ==
LOC: RT 11:05
PROVIDERS: PCP Family Medicine; Visit Provider Internal Medicine
DX: J44.9 Chronic obstructive pulmonary disease, unspecified (principal)
CPT/HCPCS: 94060; 94726; 94729; J7613

== ENCOUNTER 2025-02-22 06:45 | Outpatient (CLI) | payer OTHER, SELFPAY ==
--- NOTE | 2025-02-22 07:00 | CTR_ITS ---
PROCEDURE INFORMATION: Exam: CT Chest Without Contrast, Diagnostic, High Resolution Exam date and time: 02/22/2025 6:56 AM Age: 44 years old Clinical indication: Condition or disease; Lung condition and disease; Other: Pulmonary infiltrates TECHNIQUE: Imaging protocol: Diagnostic computed tomography of the chest without contrast. Exam was performed with high resolution protocol. Radiation optimization: All CT scans at this facility use at least one of these dose optimization techniques: automated exposure control; mA and/or kV adjustment per patient size (includes targeted exams where dose is matched to clinical indication); or iterative reconstruction. COMPARISON: CT angio chest PE protcl [id number] 01/04/2025 6:56 PM RADIATION DOSE METRICS: Total DLP (mGy-cm): 577.43 FINDINGS: Lungs: Stable left lower lobe 4 mm nodule. Stable ground glass density nodule 3 mm in the right lower lobe (5/35). Pleural spaces: Unremarkable. No pneumothorax. No pleural effusion. Heart: Unremarkable. No cardiomegaly. No pericardial effusion. Coronary arteries: No coronary calcification. Vasculature: Unremarkable. No aortic aneurysm. Lymph nodes: Unremarkable. No enlarged lymph nodes. Bones/joints: Unremarkable. No acute fracture. Soft tissues: Unremarkable. Other findings: There is interval improvement of bilateral nodular disease. CT/CT chest w/o HI-Res(Pulm Only) IMPRESSION: 1. Interval improvement of bilateral nodular disease. 2. Stable left lower lobe 4 mm nodule. Stable ground glass density nodule 3 mm in the right lower lobe (5/35). As per Fleischner Society guidelines for follow-up and management of multiple pulmonary nodules measuring less than 6 mm: For patients at low risk, no specific followup is recommended. For patients at high risk, consider followup CT in 12 months.
== END 2025-02-22 06:46 | disposition home or self-care (01) ==
LOC: RAD 06:47
PROVIDERS: PCP Family Medicine; Visit Provider Internal Medicine
DX: J96.10 Chronic respiratory failure, unspecified whether with hypoxia or hypercapnia (principal); R91.8 Other nonspecific abnormal finding of lung field
CPT/HCPCS: 71250

== ENCOUNTER 2025-03-07 17:09 | Emergency (ER) | payer OTHER, MEDICAID, SELFPAY ==
--- OUTSIDE RECORDS SUMMARY | 2024-01-19 04:00 | XMS_ITS ---
Author Organization [facility] Address [address] [place] [address] Care Team Providers Care Product Safety Technical Assistant Name Role Phone Israel BAIN, Collin Primary Care Provider Gulshan Simmons REASON FOR VISIT 1 MONTH F/U Encounters Encounter Location Date Provider Diagnosis [facility] [address] [place] [phone] 01/19/2024 Gulshan Jorgensen Plan Of Treatment No Information Progress Notes * JOSH QUIÑONES DDOB:1980 (44 yo F)Acc No.[id number]:01/19/2024 Progress Notes Patient: JOSH NGUYEN Provider: Bebe Jorgensen MD :1980 A ge:43 Y S ex:Female Date:01/19/2024 Address:[facility] [address] [id number] Pcp:Collin Wood MD Subjective: * Chief Complaints: * 1 MONTH F/U Billing Information: * Procedure Codes: Care Plan Details* * Electronic signature of Natalia Jorgensen MD on 03/07/2025 at 08:17 PM IOS DEVELOPER Sign off status: Pending * Provider: Bebe Jorgensen MD Date: Generated for Macyi ng/Faxing/eTransmitting on: 05/08/2024 08:17 PM IOS DEVELOPER
--- OUTSIDE RECORDS SUMMARY | 2024-01-28 03:00 | XMS_ITS ---
Author Organization [facility] Address [address] [place] [address] Care Team Providers Care Assistant Maintenance Manager Name Role Phone Collin Wood MD Primary Care Provider Unavaila ble Migration, Provider Unavailable Unavailable REASON FOR VISIT EMR-Octavio Encounters Encounter Location Date Provider Diagnosis Migrated_Facility 0 0 01/28/2024 Provider Migration Plan Of Treatment No Information Progress Notes * JOSH QUIÑONES DDOB:1980 (44 yo F)Acc No.[id number]:01/28/2024 Patient: Hollis LEGGETT JOSH Kaplan :1980 A ge:43 Y S ex:Female Address:[address] [place] [address] [address] Subjective: * Chief Complaints: * E MR-Octavio * * Date:
--- OUTSIDE RECORDS SUMMARY | 2024-01-29 03:00 | XMS_ITS ---
Author Organization [facility] Address [address] [place] [address] Care Team Providers Care Post Framer Name Role Phone Collin Wood MD Primary Care Provider Unavaila ble Migration, Provider Unavailable Unavailable Allergies Allergen (clinical drug ingredient) Drug/Non Drug Allergy documented on EMR Reaction Allergy Type Onset Date Status Penicillin anaphylaxis Drug Allergy Acti ve REASON FOR VISIT EMR-Octavio Encounters Encounter Location Date Provider Diagnosis Migrated_Facility 0 0 01/29/2024 Provider Migration Plan Of Treatment No Information Progress Notes * JOSH QUIÑONES DDOB:1980 (44 yo F)Acc No.[id number]:01/29/2024 Patient: JOSH NGUYEN :1980 A ge:43 Y S ex:Female Address:[address] [place] [address] Subjective: * Chief Complaints: * E MR-Octavio * Allergies: P enicillin: anaphylaxis - Allergy - Criticality High * * Date:
--- OUTSIDE RECORDS SUMMARY | 2025-01-07 04:00 | XMS_ITS ---
Author Organization [facility] Address [address] [place] [address] Care Team Providers Care [employer] Senior [employer] Name Role Phone Israel BAIN, Collin Primary Care Provider Gulshan Simmons REASON FOR VISIT 6 month f/u, Pt's Influenza Vaccination status needs to be documented under Preventive Medicine. Encounters Encounter Location Date Provider Diagnosis [facility] [address] [place] [id number] 01/07/2025 Gulshan Jorgensen Plan Of Treatment No Information Progress Notes * JOSH QUIÑONES DDOB:1980 (44 yo F)Acc No.[id number]:01/07/2025 Progress Notes Patient: JOSH NGUYEN Provider: Bebe Jorgensen MD :1980 A ge:44 Y S ex:Female Date:01/07/2025 Address:[address] [id number] Pcp:Collin Wood MD Subjective: * Chief Complaints: * 6 month f/uPt's Influenza Vaccination status needs to be documented under Preventive Medicine. Plan: * Preventive Medicine: Screenings: V ACCINATIONS: Influenza vaccinations: * Billing Information: * Procedure Codes: Care Plan Details* * Electronic signature of Natalia Jorgensen MD on 03/07/2025 at 08:17 PM PALEONTOLOGICAL HELPER Sign off status: Pending * Provider: Bebe Jorgensen MD Date: 1 Generated for [facility]/[place]/Fede on: 1 05/08/2024 08:17 PM PALEONTOLOGICAL HELPER
[2025-03-07 17:20] VITALS: BP 133/99; PULSE 93; RESP 18; TEMP 36.7; O2SAT 90; BMI 22.2
--- NOTE | 2025-03-07 17:26 | XRR_ITS ---
PROCEDURE INFORMATION: Exam: XR Right Hip Exam date and time: 03/07/2025 5:29 PM Age: 44 years old Clinical indication: Hip pain; Right hip; Additional info: Pain; Recent injury TECHNIQUE: Imaging protocol: Radiologic exam of the right hip. Views: 1 view hip with pelvis when performed. COMPARISON: CT abdomen pelvis w con* [id number] 05/25/2018 10:21 AM FINDINGS: Bones/joints: Unremarkable. No acute fracture. Soft tissues: Unremarkable. XR/XR hip RT 2-3V wo/w pel* [id number] IMPRESSION: No acute findings.
--- NOTE | 2025-03-07 17:27 | W.ED.EXTPRO ---
HPI - Extremity Problem General: Chief complaint: Extremity Problem,Nontraumatic Stated complaint: RT hip pain Time Seen by Provider: 03/07/25 17:20 Source: patient Mode of arrival: ambulatory Limitations: no limitations History of Present Illness: Patient is a 44-year-old female who presents to ED today with a complaint of right hip pain over the past month. Denies any injury or trauma when the pain started but did have a fall yesterday onto the hip. She feels like pain is not worsening over the course of the month-but just not improving. No fevers. When asked about recent illness she does tell me she had pneumonia several months ago. She is ambulatory without difficulty or assistance. Vital signs are stable upon arrival. She does feel like the pain originates in her hip and radiates down into her thigh. She denies any redness or warmth to the joint. No edema to the leg. She has not noticed any color/temp changes. Denies numbness/loss of sensation. MD Complaint: joint pain Onset (ago): month(s) Pain Consistency: constant Location: right and lower extremity (hip) Relieving factors: nothing Exacerbating factors: range of motion, weight bearing, walking and palpation Associated symptoms: Reports no associated symptoms; Deny chest pain, fever(s) or rash Related Data Home Medications ?Medication ?Instructions ?Recorded ?Confirmed acetaminophen 325 mg tablet 650 mg PO QID PRN Pain 04/22/23 02/08/25 bupropion HCl 300 mg 24 hr tablet, 150 mg PO QAM 01/05/25 02/08/25 extended release lamotrigine 25 mg tablet 2 - 25 mg PO DAILY 01/05/25 02/08/25 lumateperone 21 mg capsule 21 mg PO DAILY 01/05/25 02/08/25 (Caplyta) clonazepam 0.5 mg tablet (Klonopin) 0.5 mg PO DAILY PRN 02/25/25 02/25/25 Previous Rx's ?Medication ?Instructions ?Recorded solifenacin 10 mg tablet (Vesicare) 10 mg PO DAILY #30 tabs 08/11/23 pregabalin 200 mg capsule 200 mg PO TID #90 caps 12/02/23 levofloxacin 750 mg tablet 750 mg PO DAILY #7 tabs 01/07/25 fluticasone fur. 100 mcg-umeclid 1 inh inhalation Q24H #28 ea 02/25/25 62.5 mcg-vilant 25 mcg inhalat.powder (Trelegy Ellipta) cyclobenzaprine 10 mg tablet 10 mg PO TID #14 tabs 03/07/25 ibuprofen 800 mg tablet 800 mg PO Q8H PRN pain #20 tabs 03/07/25 methylprednisolone 4 mg tablets in See Rx Instructions PO .COMPLEX 03/07/25 a dose pack (Medrol (Ascencion)) #21 ea Allergies Allergy/AdvReac Type Severity Reaction Status Date / Time Penicillins Allergy RASH/ ITCHY Verified 02/25/25 09:17 Review of Systems Const: Denies: fever(s), chills, body aches, fatigue or malaise Card: Denies: chest pain Resp: Denies: dyspnea : Denies: flank pain, dysuria or hematuria Musc: Reports: back pain (chronic-at baseline) and joint pain (R hip); Denies: neck pain, extremity pain, extremity swelling, joint swelling, joint redness, joint warmth, joint stiffness or muscle weakness Skin/Breast: Denies: rash Neuro: Denies: numbness in extremities, weakness in extremities or sensory changes PFSH ED PFSH: Medical History Hilar lymphadenopathy Viral syndrome Joint pain Chronic steroid use Hepatitis C antibody positive in blood Immunization counseling High risk medication use Inflammatory arthritis Seasonal allergies Anxiety Opioid contract exists Long-term use of high-risk medication Chronic low back pain with left-sided sciatica MIREILLE (generalized anxiety disorder) Depression Surgical History H/O laminectomy History of tonsillectomy and adenoidectomy H/O: hysterectomy H/O carpal tunnel repair Family History Other CAD (coronary artery disease) Cancer Diabetes Family history of premature coronary artery disease Hyperlipidemia Hypertension Rheumatoid arthritis Stroke Denies family history of Lupus Chronic kidney disease (CKD) Lung disease Social History Smoking and tobacco/nicotine status: current every day tobacco/nicotine user (2 ppd X 29 years) cigarettes Packs smoked per day: 1.5 Years cigarettes smoked: 15 Second hand smoke exposure: Yes Alcohol intake: never Substance/Drug Use: current Substance/Drug use frequency: few times a month Lives independently: Yes Household members: spouse Marital status: Current gender identity: Female Special juan needs: No Physical Exam Const: COMMON NORMALS: no acute distress, patient oriented x3, no limitations, alert and well nourished GENERAL APPEARANCE: cooperative ORIENTATION/CONSCIOUSNESS: Yes awake, Yes oriented to person, Yes oriented to place and Yes oriented to time HENMT: COMMON NORMALS: normocephalic and atraumatic HEAD & SCALP: normal to inspection, normocephalic and atraumatic FACE & SINUS: normal facial exam Neck/C-Spine: COMMON NORMALS: full ROM and no meningeal signs Resp: COMMON NORMALS: normal respiratory effort and clear to auscultation bilaterally AUSCULTATION: clear to auscultation bilaterally Cardio: COMMON NORMALS: regular rate and regular rhythm RATE: regular rate RHYTHM: regular rhythm Back/Pelvis: COMMON NORMALS: thoracic and lumbar spine normal to inspection, thoraco-lumbar ROM normal and straight leg raise negative bilaterally THORACIC SPINE/UPPER BACK: No thoracic spinal tenderness LUMBAR SPINE/LOWER BACK: Yes lumbar spinal tenderness (at baseline per patient) PELVIS: Yes buttocks normal and No sciatic notch tenderness SACROILIAC JOINTS: Yes SI joints normal SACRUM: no tenderness COCCYX: no tenderness Extremity: COMMON NORMALS: normal to inspection, capillary refill normal, no joint enlargement, no clubbing, cyanosis or edema, no calf tenderness and no pedal edema GENERAL: Yes normal exam except as noted RIGHT LOWER EXTREMITY: Yes hip joint (TTP lateral R hip; no erythema/warmth) Right hip: Yes ROM (pain with passive ROM but micromovements are normal w/o discomfort) and Yes neurovascular exam (normal) Neuro: COMMON NORMALS: patient oriented x3, moves all extremities, no focal motor deficits, no sensory deficits noted and gait normal SENSORIUM/ORIENTATION: Yes alert, Yes oriented to person, Yes oriented to place and Yes oriented to time MENINGEAL SIGNS: Yes no meningeal signs Skin: COMMON NORMALS: no rashes or lesions noted GENERAL SKIN EXAM: no rashes or lesions noted Course Vital Signs: Vital signs: Vital Signs Temperature 98.1 F 03/07/25 17:20 Pulse Rate 103 H 03/07/25 18:03 Respiratory Rate 18 03/07/25 17:20 Blood Pressure 105/71 03/07/25 18:03 Pulse Oximetry 92 03/07/25 18:03 Oxygen Delivery Me thod Room Air 03/07/25 17:49 MDM - Extremity (Nontraumatic) Medical Decision Making Personal interpretation of R hip/pelvis XR unremarkable. Vitals stable. Nothing by history of physical exam to belive she has a septic arthritis/septic bursitis. She feels better after medications given here. She will be placed on NSAIDs/steroids/muscle relaxers and recommend follow up with PCP next week if symptoms are not improving. Return precautions discussed. Medical Records I reviewed the patient's medical records. XR interpretation done by ED provider, pending radiology final review Discharge Plan Discharge Patient Disposition: Home Clinical Impression: Acute pain of right hip Condition: Stable Prescriptions: New cyclobenzaprine 10 mg tablet 10 mg PO TID Qty: 14 0RF ibuprofen 800 mg tablet 800 mg PO Q8H PRN (Reason: pain) Qty: 20 0RF methylprednisolone [Medrol (Ascencion)] 4 mg tablets,dose pack See Rx Instructions .ROUTE .COMPLEX Qty: 21 0RF Rx Instructions: orally per package directions Discontinued buprenorphine-naloxone 2-0.5 mg tablet, sublingual 1 tab SUBLINGUAL TID methylprednisolone [Medrol (Ascencion)] 4 mg tablets,dose pack See Rx Instructions .ROUTE .COMPLEX Qty: 21 0RF Rx Instructions: Take per package instructions for 6 days No Action clonazepam [Klonopin] 0.5 mg tablet 0.5 mg PO DAILY PRN Trelegy Ellipta 100-62.5-25 mcg blister with device 1 inh inhalation Q24H Qty: 28 6RF Rx Instructions: To be kept with patient solifenacin [Vesicare] 10 mg tablet 10 mg PO DAILY Qty: 30 3RF pregabalin 200 mg capsule 200 mg PO TID Qty: 90 0RF acetaminophen 325 mg Tablet 650 mg PO QID PRN (Reason: Pain) lamotrigine 25 mg tablet 2 - 25 mg PO DAILY Caplyta 21 mg capsule 21 mg PO DAILY bupropion HCl 300 mg tablet extended release 24 hr 150 mg PO QAM levofloxacin 750 mg Tablet 750 mg PO DAILY Qty: 7 0RF Discharge Orders: Discharge ED (Routine); Ordered 03/07/25 Ordered By: Yisel Patel Referrals: Collin Wood MD [Primary Care Provider, Family Practice] Patient Instructions: Patient Portal & Bob Instructions Activity Restrictions/Additional Instructions: As we discussed, I would like you to follow-up with primary care next week if symptoms are not improving. You need to return to the emergency department for worsening or severe hip pain, fevers, inability to ambulate, generally feeling worse or unwell, or any other concerns you may have. Print Language: Rwandan Coding Level of Care Code ED Die Equipment Operator for Jayla Zheng
[2025-03-07 17:49] VITALS: BP 105/75; PULSE 90; O2SAT 92
[2025-03-07] MEDS: orphenadrine 30 mg/mL Inj 2 mL 60 MG IM (17:59)
[2025-03-07 18:03] VITALS: BP 105/71; PULSE 103; O2SAT 92
[2025-03-07 18:55] VITALS: BP 111/62; PULSE 89; O2SAT 92
--- OUTSIDE RECORDS SUMMARY | 2025-03-07 20:18 | XMS_ITS | Patient Health Record ---
Author Organization [facility] Address [address] [place] [address] Care Team Providers Care Chef Saucier Name Role Phone Collin oWod MD Primary Care Provider Gulshan Simmons Unavailable Allergies Allergen (clinical drug ingredient) Drug/Non Drug Allergy documented on EMR Reaction Allergy Type Onset Date Status Penicillin anaphylaxis Drug Allergy Acti ve Results Component Value Reference Range Notes UA Dip / Urinalysis, Routine , Manual - [id number] Reviewed date:09/25/2024 10:18:31 AM Interpretation: Performing Lab: Notes/Report: Color Yellow Clarity Clear Glucose - Bilirubin - Ketones - Specific [place] 1.0052 Blood - pH 7.5 Protein Trace [...] down, depressed, or hopeless More than h fdc the days Trouble falling or staying a [...] many cigarettes a day do you smoke? - Section Notes: Completed 12/21 Completed 12/21 Completed 12/21 CIME Dep/tob - 07/09/24 Completed 12/21 CIME Dep/tob - 07/09/24 Completed 12/21 CIME Dep/tob - 07/09/24 Completed 12/21 Problems Problem Type SNOMED Code ICD Code Onset Dates Problem Status W/U Status Risk Notes Problem Spinal stenosis of lumbar region (91609682) Spinal stenosis at L4-L5 level (M48.061) Active confirmed Problem Tobacco abuse (7763166793) Tobacco abuse (Z72.0) Active confirmed Problem Moderate recurrent major depression (61563002) Moderate episode of recurrent major depressive disorder (F33.1) Active confirmed Problem Pyelonephritis (65147131) Pyelonephritis (N12) Active confirmed Problem Lumbar radiculopathy (317756574) Lumbar back pain with radiculopathy affecting left lower extremity (M54.16) Active confirmed Problem Left tennis elbow (538491240785005) Left tennis elbow (M77.12) Active confirmed Vital Signs Heart Rate 93 /min 10/23/2024 Temperature 97.9 degrees Fahrenheit 10/23/2024 Height-cm 157.48 cm 10/23/2024 Oximetry 94 % 10/23/2024 Blood pressure diastolic 80 mm Hg 10/23/2024 Weight-kg 51.26 kg 10/23/2024 Height 62 in 10/23/2024 Blood pressure systolic 125 mm Hg 10/23/2024 Weight 113 lbs 10/23/2024 BMI 20.67 kg/m2 10/23/2024 Encounters Encounter Location Date Provider Diagnosis [facility] [address] [place] [phone] 10/23/2024 Gulshan Jorgensen Lumbar back pain wit h radiculopathy affecting left lower extremity M54.16 [facility] [address] [address] 09/25/2024 Gulshan Jorgensen UTI symptoms R39.9 ; Lumbar back pain with radiculopathy affecting left lower extremity M54.16 and Depression screen Z13.31 [facility] [address] [address] 07/09/2024 Gulshan Jorgensen Moderate episode of recurrent major depressive disorder F33.1 ; Lumbar back pain with radiculopathy affecting left lower extremity M54.16 and Depression screen Z13.31 [facility] [address] [address] 03/19/2024 Gulshan Jorgensen [facility] [address] [place] [phone] 01/07/2025 Gulshan Jorgensen [facility] [address] [place] [phone] 12/04/2024 Gulshan Jorgensen Dysuria R30.0 [facility] [address] [place] [phone] 11/19/2024 Gulshan Jorgensen [facility] [address] [place] [phone] 11/19/2024 Gulshan Jorgensen [facility] [address] [place] [phone] 07/18/2024 Gulshan Jorgensen Assessments Encounter Date Diagnosis (ICD Code) Assessment Notes Treatment Notes Treatment Clinical Notes Section Notes 09/25/2024 Lumbar back pain with radiculopathy affecting left lower extremity (ICD-10 - M54.16) 10/23/2024 Lumbar back pain with radiculopathy affecting left lower extremity (ICD-10 - M54.16) 12/04/2024 Dysuria (ICD-10 - R30.0) 07/09/2024 Moderate episode of recurrent major depressive disorder (ICD-10 - F33.1) 09/25/2024 UTI symptoms (ICD-10 - R39.9) 09/25/2024 Depression screen (ICD-10 - Z13.31) 07/09/2024 Lumbar back pain with radiculopathy affecting left lower extremity (ICD-10 - M54.16) 07/09/2024 Depression screen (ICD-10 - Z13.31) Plan Of Treatment No Information Insurance Providers Payer Name Payer Address Payer Phone Subscriber Number Group Number Insured Name Patient Relationship to Insured Coverage Start Date Coverage End Date Amandeep [address] [facility] [place] [address] [id number] JOSH QUIÑONES Self - patient is the insured Medications Administered Medication Instructions Date of Administration Dosage Notes BUPivacaine HCl 09/20/2023 1 mL BUPivacaine HCl 12/22/2023 1 mL DEPO-Medrol 09/20/2023 80 mg DEPO-Medrol 12/22/2023 80 mg Rocephin 10/19/2023 1 g Medical (General) History Medical History History ICD Code nerve damage to left foot lower back pain bipolar disorder Surgical History Surgery Date(Month/Year) back surgery -2020 carpal tunnel surgery intestinal surgery tonsilectomy hysterectomy partial
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
== END 2025-03-07 18:56 | disposition home or self-care (01) ==
PROVIDERS: Emergency Provider Physician Assistant; PCP Family Medicine
DX: M25.551 Pain in right hip (principal); F17.210 Nicotine dependence, cigarettes, uncomplicated
CPT/HCPCS: 73502; 96372; 99284; J1100; J1885; J2360